=== PATIENT | female | born 1950 | race African-American/Black ===

== ENCOUNTER 2017-09-08 19:09 | Emergency (ER) | payer MEDICARE, MEDICAID ==
--- NOTE | 2017-09-08 19:30 | ER Document Report ---
ED General - General Chief Complaint: Other Stated Complaint: other Time Seen by Provider: 09/08/17 19:15 Mode of Arrival: Medic Information source: Patient, Relative Notes: 58-year-old female patient presents with complaints of fever via EMS. Patient was recently moved here from [facility] to live near her family. Patient's family member at bedside states that she has been unwell with weakness and fever for about 24 hours. Patient's family member states that patient has been excessively weak, has had very strong smelling urine and has had fevers as high as 102.5. Patient is alert and oriented x3 (to person, place and event) and denies any complaints. Patient's has hypertension, new onset diabetes for which she just started metformin as well as hypothyroidism. EMS reports temperature of 102.5 orally for which they gave 975 oral Tylenol. EMS also reports blood sugar of 238. TRAVEL OUTSIDE OF THE [place] IN LAST 30 DAYS: No - Related Data Allergies/Adverse Reactions: No Known Allergies Allergy (Unverified 09/08/17 20:07) Past Medical History - General Information source: Patient, Relative - Social History Smoking Status: Current Every Day Smoker Chew tobacco use (# tins/day): No Frequency of alcohol use: None Drug Abuse: None Family History: Reviewed & Not Pertinent Patient has suicidal ideation: No Patient has homicidal ideation: No - Past Medical History Cardiac Medical History: Reports: Hx Hypertension Endocrine Medical History: Reports: Hx Diabetes Mellitus Type 2, Hx Hypothyroidism Renal/ Medical History: Denies: Hx Peritoneal Dialysis Past Surgical History: Reports: Hx Section - Immunizations Immunizations up to date: Yes History of Influenza Vaccine for 01/2017 - 06/2017 Season: Unknown History of Pneumococcal Vaccine: Unknown Review of Systems - Review of Systems Constitutional: See HPI EENT: No symptoms reported Cardiovascular: See HPI Respiratory: No symptoms reported Gastrointestinal: No symptoms reported Genitourinary: No symptoms reported Female Genitourinary: No symptoms reported Musculoskeletal: No symptoms reported Skin: No symptoms reported Hematologic/Lymphatic: No symptoms reported Neurological/Psychological: No symptoms reported Physical Exam - Vital signs Vitals: Resp 31 H 09/08/17 19:43 - Notes Notes: PHYSICAL EXAMINATION: GENERAL: Well developed, well nourished, no acute distress. HEAD: Atraumatic, normocephalic. EYES: Pupils equal round and reactive to light, extraocular movements intact, conjunctiva are normal. ENT: Nares patent, oropharynx clear without exudates. Moist mucous membranes. NECK: Normal range of motion, supple without lymphadenopathy LUNGS: Bilateral breath sounds equal. Expiratory wheezes, no rales or rhonchi. HEART: Irregular rate and irregular rhythm without murmurs ABDOMEN: Soft, nontender, nondistended abdomen. No guarding, no rebound. No masses appreciated. Female : deferred Musculoskeletal: Normal range of motion, no pitting or edema. No cyanosis. NEUROLOGICAL: Cranial nerves grossly intact. Normal speech, normal gait. Normal sensory, motor exams PSYCH: Normal mood, normal affect. SKIN: Warm, Dry, normal turgor, no rashes or lesions noted. Course - Re-evaluation Re-evalutation: 66-year-old female patient with hypertension, hypothyroid and type 2 diabetes. Patient with 1 day of fever and weakness at home. Family also reports strong urine output. Patient denies any complaints at all during the interview. Initial examination reveals bilateral expiratory wheezing and no other acute findings on physical exam. Patient is alert and oriented to person place and event. Patient's neurological exam is normal. Patient is normotensive, without tachypnea or tachycardia. Will initiate septic workup as patient has had fevers at home as high as 102.5 with vague complaints of "weakness". Patient's initial EKG shows a sinus arrhythmia, rate of 91, normal axis, no ST segment elevations, QTC 488. Patient has leukocytosis with left shift, potassium 2.8, mag 1.2, lactic acid 3.1, troponin 0.247. Chest x-ray reveals large right upper lobe infiltrate. Will give patient IV fluids, will initiate antibiotic coverage for pneumonia and will start electrolyte replacement therapy. Nursing staff made me aware of an approximate 8 second run of ventricular tachycardia. Nursing staff was at the bedside at the time of this occurrence and patient denied any symptoms. Consulted emergency medicine attending physician, Dr. Au regarding patients status. Will monitor patient closely and continue with IV fluids as well as electrolyte replacement. Patient remains normotensive. Patient's lungs are clear at this time after duoneb, patient has normal work of breathing and is not in any distress. I did go to the bedside with another staff member to verify patient's CODE STATUS. Lengthy discussion had with patient and family it was ultimately decided by the patient that she would like to be a FULL CODE. 2340-Contacted [facility] and spoke with Dr. Edwards who is accepting the patient for admission. Patient will be placed on their waiting list for a bed, and I was notified that there may be a bed delay until the morning. Will also contact [facility]. Family updated on plan of care and status of transfer. 2345-Contacted [facility] for possible transfer. Awaiting callback. 2355-Nursing staff notified provider that patient is now with wheezing and rhonchi throughout. Went to bedside and patient found to be tachypneic, tachycardic and febrile. Will re-dose patient with Tylenol. Patient now vomited x1, will change tylenol to VT route. 0010-Patient currently receiving a breathing treatment. O2 saturation 95% with breathing treatment. Patient is still alert and responding. Will closely monitor patient for any acute changes. 0025-Call received from [facility]. Patient is now accepted to Dr. Harris. Awaiting bed placement. Family update on transfer status. 0035-Patient reevaluated and patient's respiratory status has not improved despite administration of 2 additional duonebs and 125mg Solu-Medrol. Patient does have coarse rhonchi throughout with mild rails. Will call respiratory therapy and have patient placed on BiPAP at this time. Patient remains normotensive, mildly tachycardic with heart rate of 105 however patient is currently febrile. Patient is still alert and responsive. 0048-patient resting comfortably on BiPAP at this time. Multiple family members remain at bedside. Transport should be here in less than 30 minutes. Patient's blood pressure normotensive, heart rate 96, pulse ox 100% and respiratory rate of 22 on BiPAP. 0135-friendly transport is at bedside for patient transport. Patient and family deny any questions. Patient remains normotensive, heart rate is currently 102. Patient does not have any signs of respiratory distress. Patient is stable for transport at this time. - Vital Signs Vital signs: Temp Pulse Resp BP Pulse Ox 101.2 F H 109 H 34 H 123/72 100 09/09/17 00:03 09/08/17 23:47 09/09/17 01:14 09/09/17 01:01 09/09/17 01:14 - Laboratory Result Diagrams: 09/08/17 19:58 09/08/17 19:58 Laboratory results interpreted by me: 09/08/17 09/08/17 09/08/17 19:33 19:38 19:58 WBC 12.6 H Hgb 10.8 L Hct 32.8 L MCH 26.3 L RDW 15.3 H Seg Neutrophils % 86.2 H Lymphocytes % 8.1 L Absolute Neutrophils 10.9 H VBG pH 7.48 H Potassium Est GFR ( Amer) Est GFR (Non-Af Amer) Glucose Lactic Acid Magnesium 1.2 L* Direct Bilirubin Creatine Kinase Albumin Urine Protein Urine Ketones Urine Blood Urine Urobilinogen Ur Leukocyte Esterase 09/08/17 09/08/17 09/08/17 19:58 19:58 19:58 WBC Hgb Hct MCH RDW Seg Neutrophils % Lymphocytes % Absolute Neutrophils VBG pH Potassium 2.8 L* Est GFR ( Amer) 55 L Est GFR (Non-Af Amer) 45 L Glucose 333 H Lactic Acid 3.1 H Magnesium Direct Bilirubin 0.7 H Creatine Kinase 141 H Albumin 3.3 L Urine Protein 30 H Urine Ketones TRACE H Urine Blood MODERATE H Urine Urobilinogen 4.0 H Ur Leukocyte Esterase SMALL H 09/08/17 23:49 WBC Hgb Hct MCH RDW Seg Neutrophils % Lymphocytes % Absolute Neutrophils VBG pH Potassium Est GFR ( Amer) Est GFR (Non-Af Amer) Glucose Lactic Acid 3.0 H Magnesium Direct Bilirubin Creatine Kinase Albumin Urine Protein Urine Ketones Urine Blood Urine Urobilinogen Ur Leukocyte Esterase Critical Care Note - Critical Care Note Total time excluding time spent on procedures (mins): 60 Comments: 60 minutes of critical care time spent in direct contact evaluating and reevaluating the patient, treating symptoms, reviewing labs and studies and speaking with family and consultants excluding any procedures
[2017-09-08] MEDS ORDERED: IPRATROPIUM/ALBUTEROL 0.5-2.5 MG/3 ML AMPUL NEB ONE ×2 (19:35→23:58)
--- NOTE | 2017-09-08 20:14 | RADIOLOGY REPORT (SQ) ---
EXAM DESCRIPTION: CHEST SINGLE VIEW COMPLETED DATE/TIME: 09/08/2017 8:05 pm REASON FOR STUDY: fever COMPARISON: None. EXAM PARAMETERS: NUMBER OF VIEWS: One view. TECHNIQUE: Single frontal radiographic view of the chest acquired. RADIATION DOSE: NA LIMITATIONS: None. FINDINGS: LUNGS AND PLEURA: Dense infiltrate in the right upper lobe. Left lung clear. No pleural effusion or pneumothorax. MEDIASTINUM AND HILAR STRUCTURES: No masses. Contour normal. HEART AND VASCULAR STRUCTURES: Heart upper limits of normal in size. Normal vasculature. BONES: No acute findings. HARDWARE: None in the chest. OTHER: No other significant finding. IMPRESSION: INFILTRATE IN THE RIGHT UPPER LOBE CONSISTENT WITH PNEUMONIA. TECHNICAL DOCUMENTATION: JOB ID: [id number] [employer]- All Rights Reserved Reading location - IP/workstation name: [email or web address]
[2017-09-08 20:15] LABS: ABSOLUTE MONOCYTES (AUTO) 0.7 10^3/uL (0.1-1.4); ABSOLUTE NEUT (AUTO) 10.9 10^3/uL (1.7-8.2); BASOPHILS % (AUTO) 0.3 % (0-2); HEMATOCRIT 32.8 % (36.0-47.0); HEMOGLOBIN 10.8 g/dL (12.0-15.5); LYMPHOCYTES % (AUTO) 8.1 % (13-45); MEAN CORPUSCULAR HEMOGLOBIN 26.3 pg (27.0-33.4); MEAN CORPUSCULAR HGB CONC 32.8 g/dL (32.0-36.0); MEAN CORPUSCULAR VOLUME 80 fl (80-97); MONOCYTES % (AUTO) 5.4 % (3-13); PLATELET COUNT 183 10^3/uL (150-450); RED BLOOD COUNT 4.11 10^6/uL (3.72-5.28); RED CELL DISTRIBUTION WIDTH 15.3 % (11.5-14.0); SEGMENTED NEUTROPHILS % (AUTO) 86.2 % (42-78); TOTAL CELLS COUNTED % (AUTO) 100 %; WHITE BLOOD COUNT 12.6 10^3/uL (4.0-10.5)
[2017-09-08 20:22] LABS: APPEARANCE,URINE SLIGHTLY-CLOUDY; BILIRUBIN,URINE NEGATIVE (NEGATIVE); COLOR,URINE AMBER; GLUCOSE, URINE NEGATIVE (NEGATIVE); KETONES,URINE TRACE mg/dL (NEGATIVE); LEUKOCYTE ESTERASE,URINE SMALL (NEGATIVE); NITRITE,URINE NEGATIVE (NEGATIVE); PROTEIN,URINE 30 mg/dL (NEGATIVE); URINE SPECIFIC GRAVITY 1.019
[2017-09-08] MEDS ORDERED: CEFTRIAXONE INJ 1000 MG VIAL IV ONE (20:30)
[2017-09-08] MEDS ORDERED: DOXYCYCLINE HYCLATE 100 MG TABLET PO ONE ×2 (20:31→21:21)
[2017-09-08 20:32] LABS: ALANINE AMINOTRANSFERASE 15 U/L (9-52); ALBUMIN 3.3 g/dL (3.5-5.0); ALKALINE PHOSPHATASE 72 U/L (38-126); ANION GAP 15 (5-19); ASPARTATE AMINO TRANSFERASE 27 U/L (14-36); BILIRUBIN,DIRECT 0.7 mg/dL (0.0-0.4); BILIRUBIN,TOTAL 0.9 mg/dL (0.2-1.3); BLOOD UREA NITROGEN 19 mg/dL (7-20); CALCIUM 8.5 mg/dL (8.4-10.2); CARBON DIOXIDE 25 mmol/L (22-30); CHLORIDE 98 mmol/L (98-107); CREATINE KINASE 141 U/L (30-135); GLUCOSE 333 mg/dL (75-110); SODIUM 138.3 mmol/L (137-145); TOTAL PROTEIN 7.4 g/dL (6.3-8.2)
[2017-09-08 20:35] LABS: POTASSIUM 2.8 mmol/L (3.6-5.0)
[2017-09-08] MEDS ORDERED: CEFEPIME 2 GM/D5W RTU 2 GM/50 ML RTUPB IV ONE (20:37)
[2017-09-08] MEDS ORDERED: NORMAL SALINE 1000 ML 1,000 ML IV ONE ×2 (20:40→21:27)
[2017-09-08 20:44] LABS: TROPONIN I 0.247 ng/mL
[2017-09-08 20:49] LABS: VENOUS BLOOD BASE EXCESS 2.2 mmol/L; VENOUS BLOOD HCO3 25.5 mmol/L (20-32); VENOUS BLOOD PCO2 35.1 mmHg (35-63); VENOUS BLOOD PH 7.48 (7.30-7.42)
[2017-09-08] MEDS: POTASSI CL 20 MEQ/50 ML RIDER 20 MEQ/50 ML RTUPB IV SCH ×2 (21:10→23:45)
[2017-09-08] MEDS: MAGNESIUM SULFATE/D5W 1 GM/100 ML RTUPB IV SCH ×2 (21:55→23:43)
--- NOTE | 2017-09-08 22:29 | EKG REPORT ---
SEVERITY:- ABNORMAL ECG - SINUS ARRHYTHMIA, AND APC PROBABLE LEFT ATRIAL ABNORMALITY ABNORMAL T, CONSIDER ISCHEMIA, LATERAL LEADS BORDERLINE PROLONGED QT INTERVAL : Confirmed by: Antonia Leggett 08-Sep-2017 22:27:27
[2017-09-08] MEDS ORDERED: METHYLPREDNISOLONE INJ 125 MG/2 ML SDV IV ONE (23:58)
[2017-09-08] MEDS ORDERED: ACETAMINOPHEN 325 MG TABLET PO ONE (23:59)
[2017-09-09] MEDS ORDERED: METOCLOPRAMIDE HCL INJ/PF 10 MG/2 ML SDV IV ONE (00:02)
[2017-09-09] MEDS ORDERED: ACETAMINOPHEN 650 MG SUPP.RECT PR ONE (00:03)
[2017-09-09 01:03] VITALS: BP 123/72
[2017-09-09] MEDS ORDERED: KETOROLAC TROMETHAMINE INJ/PF 30 MG/1 ML SDV IV ONE (01:36)
[2017-09-09] MEDS ORDERED: KETOROLAC TROMETHAMINE INJ/PF 30 MG/1 ML SDV ONE (01:38)
== END 2017-09-09 02:03 | disposition short-term general hospital (02) ==
LOC: ER 19:09
DX: R09.02 Hypoxemia (principal); E87.6 Hypokalemia; E83.42 Hypomagnesemia; A41.9 Sepsis, unspecified organism; D72.829 Elevated white blood cell count, unspecified; R50.9 Fever, unspecified; R53.1 Weakness; I10 Essential (primary) hypertension; E11.9 Type 2 diabetes mellitus without complications; Z79.84 Long term (current) use of oral hypoglycemic drugs; F17.200 Nicotine dependence, unspecified, uncomplicated; E11.65 Type 2 diabetes mellitus with hyperglycemia; E03.9 Hypothyroidism, unspecified; R06.2 Wheezing; R06.82 Tachypnea, not elsewhere classified; R00.0 Tachycardia, unspecified
CPT/HCPCS: 93005; 94640 ×2; 99285; 96375; 96365; 96366; 96367; 96368; 36415; 87040; 87086; 82553; 82550; 83690; 83735; 85025; 87088; 80053; 81001; 84484; 87186; 82803; 83605; 71045; 93010; 94660; A9270 ×4; J2930; J1885; J2765; J3475; J3480; J7030; J0692; J7620

== ENCOUNTER → 2019-07-22 | Outpatient (CLI) | payer MEDICARE, MEDICAID ==
--- NOTE | 2019-07-22 14:48 | RADIOLOGY REPORT (SQ) ---
EXAM DESCRIPTION: MRI RT LOWER EXTREMITY WITHOUT IMAGES COMPLETED DATE/TIME: 07/22/2019 2:21 pm REASON FOR STUDY: OSTEOMYELITIS OF RT FOOT M86.9 OSTEOMYELITIS, UNSPECIFIED COMPARISON: None. TECHNIQUE: Multiplanar imaging of the right foot to include fat and fluid sensitive sequences. LIMITATIONS: None. FINDINGS: BONE MARROW: There is increased T2 and STIR signal in the proximal phalanx of the 1st toe. Slightly decreased heterogenous signal on T1 images. The overlying cortex appears intact. No othe r significant findings in the bony structures of the forefoot. SOFT TISSUES: Diffuse soft tissue edema. OTHER: No other significant finding. IMPRESSION: 1. ABNORMAL SIGNAL IN THE PROXIMAL PHALANX OF THE 1ST TOE DESCRIBED. SOMEWHAT ATYPICAL APPEARANCE FOR OSTEOMYELITIS. AN X-RAY OF THE FOOT WAS NOT OBTAINED AND THEREFORE CANNOT DETERMINE IF THERE MA Y BE AN UNDERLYING BONE LESION. RECOMMEND CORRELATION WITH X-RAY OF THE FOOT. 2. DIFFUSE SOFT TISSUE EDEMA. NO EVIDENCE OF DISCRETE ABSCESS TECHNICAL DOCUMENTATION: JOB ID: [id number] 2010 [employer]- All Rights Reserved Reading location - IP/workstation name: [email or web address]
== END ==
LOC: RAD 13:10
PROVIDERS: ATTEND Physician Assistant
DX: M86.8X7 Other osteomyelitis, ankle and foot (principal)

== ENCOUNTER 2019-07-24 16:56 | Inpatient (IN) | payer MEDICARE, MEDICAID ==
[~2019-07-24 16:56] MED LIST: ETOMIDATE INJ/PF 20 MG/10 ML SDV IV ONE; LIDOCAINE 2% INJ-PF (20 MG/ML) 2 ML AMPUL ONE; METOCLOPRAMIDE HCL INJ/PF 10 MG/2 ML SDV ONE; ONDANSETRON HCL INJ/PF 4 MG/2 ML SDV ONE; ROCURONIUM BROMIDE INJ 50 MG/5 ML VIAL IV ONE
--- NOTE | 2019-07-24 18:10 | ER Document Report ---
ED Extremity Problem, Lower - General Mode of Arrival: Wheelchair Information source: Patient, Relative Cannot obtain history due to: Dementia TRAVEL OUTSIDE OF THE [place] IN LAST 30 DAYS: No - HPI Patient complains to provider of: Swelling. No: Pain Location: Foot, Leg Occurred: Other - 1 month Quality of pain: No pain Pain Level: 0 Context: denies: Recent surgery Recent injury: No Associated symptoms: denies: Chills, Dizzy, Fever, Unable to bear weight Exacerbated by: Nothing <MEMO PEARCE - Last Filed: 07/24/19 20:01> <KATHLEEN MENDOZA - Last Filed: 07/25/19 00:41> - General Chief Complaint: Feet Swelling Stated Complaint: RIGHT FOOT PAIN Time Seen by Provider: 07/24/19 17:32 Notes: Patient presents for evaluation of right foot and leg swelling. Patient had been seeing an orthopedic doctor who had an outpatient MRI performed 2 days ago. Patient's family was called today advising them to bring patient to the emergency room for further evaluation. Patient's daughter states that she has had swelling for the past month and actually the swelling is improved today. No fever. Patient without any known injury. Patient is a diabetic and takes m etformin although does not check her blood sugar. (MEMO PEARCE) - Related Data Allergies/Adverse Reactions: No Known Allergies Allergy (Verified 07/24/19 17:25) Past Medical History - General Information source: Patient - Social History Smoking Status: Current Every Day Smoker Frequency of alcohol use: None Drug Abuse: None Lives with: Family Family History: Reviewed & Not Pertinent Patient has suicidal ideation: No Patient has homicidal ideation: No - Past Medical History Cardiac Medical History: Reports: Hx Atrial Fibrillation, Hx Hypertension Neurological Medical History: Reports: Other - dementia Endocrine Medical History: Reports: Hx Diabetes Mellitus Type 2, Hx Hypoth yroidism Renal/ Medical History: Denies: Hx Peritoneal Dialysis Past Surgical History: Reports: Hx Section - Immunizations Immunizations up to date: Yes <MEMO PEARCE - Last Filed: 07/24/19 20:01> Review of Systems - Review of Systems Constitutional: Recent illness - Foot infection. denies: Fever EENT: No symptoms reported Cardiovascular: No symptoms reported Respiratory: No symptoms reported. denies: Cough, Short of breath Gastrointestinal: No symptoms reported. denies: Vomiting Genitourinary: No symptoms reported Female Genitourinary: No symptoms reported Musculoskeletal: Leg swelling. denies: Back pain, Joint pain Skin: Change in color - Blackened skin color to right foot Hematologic/Lymphatic: No symptoms reported Neurological/Psychological: Dementia <MEMO PEARCE - Last Filed: 07/24/19 20:01> Physical Exam - General General appearance: Appears well, Alert In distress: None - HEENT Head: Normocephalic, Atraumatic Eyes: Normal Conjunctiva: Normal Nasal: Normal Neck: Normal, Supple. No: Lymphadenopathy - Respiratory Respiratory status: No respiratory distress Chest status: Nontender Breath sounds: Normal Chest palpation: Normal - Cardiovascular Rhythm: Irregularly irregular Heart sounds: S1 appreciated, S2 appreciated Pulses: Absent: Dorsalis pedis - Bilateral feet - Abdominal Inspection: Normal Distension: No distension Bowel sounds: Normal Tenderness: Nontender - Back Back: Normal, Nontender - Extremities General upper extremity: Normal inspection, Normal ROM Foot: Other - Patient with what appears to be dry gangrene to toes of right fifth foot with swelling to right foot extending to the right lower leg, few scattered areas open and weeping to right great toe and between the right fourth and fifth toes. No: Tender - Neurological Neuro grossly intact: Yes Cognition: Confused - At times [place] Coma Scale Eye Opening: Spontaneous [place] Coma Scale Verbal: Confused - At times [place] Coma Scale Motor: Obeys Commands [place] Coma Scale Total: 14 - Psychological Associated symptoms: Normal affect, Normal mood - Skin Skin Temperature: Warm Skin Moisture: Dry Skin Color: Blackened - To toes of right foot and dorsum of the right foot Skin Turgor: Edematous - Right foot Skin irregularity: negative: Abscess, Rash Irregularity with: Weeping - Scattered areas weeping to right foot to right great toe, between right fourth and fifth toes. negative: Tenderness, Warmth, I nflammation <MEMO PEARCE - Last Filed: 07/24/19 20:01> - Vital signs Vitals: Temp Pulse Resp BP Pulse Ox 98.1 F 52 L 16 131/91 H 100 07/24/19 17:19 07/24/19 17:19 07/24/19 17:19 07/24/19 17:19 07/24/19 17:19 Course - Laboratory Result Diagrams: 07/24/19 18:11 07/24/19 18:11 - Diagnostic Test Radiology reviewed: Reports reviewed <MEMO PEARCE - Last Filed: 07/24/19 20:01> - Laboratory Result Diagrams: 07/24/19 18:11 07/24/19 18:11 <KATHLEEN MENDOZA - Last Filed: 07/25/19 00:41> - Re-evaluation Re-evalutation: 07/24/19 18:10 Dr. Sky to bedside for evaluation, agrees with diagnostic evaluation, recommends adding on tib-fib x-ray as well and consulting with surgeon once diagnostic results are back 07/24/19 19:41 Patient's Doppler reviewed, patient with blockages to the proximal femoral artery, mid femoral artery although does have a pulse to the distal femoral artery due to collateral circulation. Consulted with Dr. Carnes regarding patient presentation. Dr. Carnes recommends consulting with hospitalist for admission as patient is currently on Xarelto and that she will need to be off of this medication before he can perform the procedure. Spoke with the patient's daughter regarding her plan of care, patient and family agreeable with plan for admission here at this facility. 07/24/19 20:[address] Valenzuela for admission, Dr. Valenzuela concerned that patient had an arterial Doppler study performed. Dr. Valenzuela requesting Dr. Carnes to review patient's final Doppler report and to evaluate the patient. Dr. Valenzuela concerned that taking patient off her Xarelto may worsen her vascular issues. Report and handoff given to Kathleen mendoza TERRAZZO SUPERVISOR (MEMO PEARCE) 07/24/19 22:08 Patient's arterial Doppler studies are still not resulted. I called [facility] radiology. Jasmin, the traffic court referee states that it has not been read yet. She states that she will place it on high priority for official read. 07/24/19 22:46 I discussed the findings of the arterial study with Dr. Carnes. Dr. Carnes states that this is fine and the plan is to have an amputation. I subsequently called the patient's daughter, Rhona. She is in agreement to have the patient evaluated here and treated for an amputation. 07/24/19 22:[address] Valenzuela, the hospitalist. Patient will be admitted to the telemetry unit. (KATHLEEN MENDOZA) - Vital Signs Vital signs: Temp Pulse Resp BP Pulse Ox 98.4 F 97 18 118/69 95 07/24/19 20:02 07/24/19 20:02 07/25/19 00:01 07/25/19 00:01 07/24/19 22:01 - Laboratory Laboratory results interpreted by me: 07/24/19 07/24/19 18:11 18:11 WBC 13.8 H MCH 26.3 L RDW 16.9 H Lymph % (Auto) 12.3 L Absolute Neuts (auto) 11.3 H Seg Neutrophils % 82.0 H BUN 23 H Est GFR (MDRD) Non-Af 58 L Glucose 193 H Direct Bilirubin 0.5 H Total Protein 8.9 H Discharge <MEMO PEARCE - Last Filed: 07/24/19 20:01> - Discharge Admitting Provider: Nicolas (Hospitalist) Unit Admitted: Telemetry <KATHLEEN MENDOZA - Last Filed: 07/25/19 00:41> - Discharge Clinical Impression: Dry gangrene, Diabetic foot wound Condition: Stable Disposition: ADMITTED INPATIENT
[2019-07-24 18:28] LABS: ABSOLUTE EOSINOPHILS # (AUTO) 0.1 10^3/uL (0.0-0.6); ABSOLUTE LYMPHOCYTES (AUTO) 1.7 10^3/uL (0.5-4.7); ABSOLUTE MONOCYTES (AUTO) 0.7 10^3/uL (0.1-1.4); ABSOLUTE NEUT (AUTO) 11.3 10^3/uL (1.7-8.2); BASOPHILS % (AUTO) 0.3 % (0-2); EOSINOPHILS % (AUTO) 0.6 % (0-6); HEMATOCRIT 41.6 % (36.0-47.0); HEMOGLOBIN 13.6 g/dL (12.0-15.5); LYMPHOCYTES % (AUTO) 12.3 % (13-45); MEAN CORPUSCULAR HEMOGLOBIN 26.3 pg (27.0-33.4); MEAN CORPUSCULAR HGB CONC 32.6 g/dL (32.0-36.0); MEAN CORPUSCULAR VOLUME 81 fl (80-97); MONOCYTES % (AUTO) 4.8 % (3-13); PLATELET COUNT 336 10^3/uL (150-450); RED BLOOD COUNT 5.15 10^6/uL (3.72-5.28); RED CELL DISTRIBUTION WIDTH 16.9 % (11.5-14.0); TOTAL CELLS COUNTED % (AUTO) 100 %; WHITE BLOOD COUNT 13.8 10^3/uL (4.0-10.5)
--- NOTE | 2019-07-24 18:43 | RADIOLOGY REPORT (SQ) ---
EXAM DESCRIPTION: FOOT RIGHT COMPLETE IMAGES COMPLETED DATE/TIME: 07/24/2019 6:28 pm REASON FOR STUDY: r foot wound, discoloration COMPARISON: None. NUMBER OF VIEWS: Three views. TECHNIQUE: AP, lateral and oblique radiographic images acquired of the right foot. LIMITATIONS: None. FINDINGS: MINERALIZATION: Osteopenia. BONES: No acute fracture or dislocation. No worrisome bone lesions. JOINTS: Intact. SOFT TISSUES: Vascular calcifications. OTHER: No other significant finding. IMPRESSION: No evidence of osteomyelitis. TECHNICAL DOCUMENTATION: JOB ID: [id number] 2010 [employer]- All Rights Reserved Reading location - IP/workstation name: [email or web address]
--- NOTE | 2019-07-24 18:44 | RADIOLOGY REPORT (SQ) ---
EXAM DESCRIPTION: TIBIA FIBULA RIGHT IMAGES COMPLETED DATE/TIME: 07/24/2019 6:28 pm REASON FOR STUDY: RLE swelling, ?gas COMPARISON: None. NUMBER OF VIEWS: Two views. TECHNIQUE: Two radiographic images acquired of the right tibia and fibula to include the knee and an kle in at least one projection. LIMITATIONS: None. FINDINGS: MINERALIZATION: Osteopenia. BONES: No acute fracture or dislocation. No worrisome bone lesions. SOFT TISSUES: No gas or foreign body. OTHER: No other significant finding. IMPRESSION: No evidence of osteomyelitis. TECHNICAL DOCUMENTATION: JOB ID: [id number] [employer]- All Rights Reserved Reading location - IP/workstation name: [email or web address]
[2019-07-24 18:49] LABS: ALBUMIN 3.8 g/dL (3.5-5.0); ALKALINE PHOSPHATASE 109 U/L (38-126); ANION GAP 9 (5-19); ASPARTATE AMINO TRANSFERASE 23 U/L (14-36); BILIRUBIN,DIRECT 0.5 mg/dL (0.0-0.4); BILIRUBIN,TOTAL 0.5 mg/dL (0.2-1.3); BLOOD UREA NITROGEN 23 mg/dL (7-20); CALCIUM 9.2 mg/dL (8.4-10.2); CARBON DIOXIDE 30 mmol/L (22-30); CHLORIDE 100 mmol/L (98-107); GLUCOSE 193 mg/dL (75-110); TOTAL PROTEIN 8.9 g/dL (6.3-8.2)
[2019-07-24] MEDS ORDERED: PIPERACILLIN/TAZOBACTAM 3.375 GM VIAL IV ONE (19:49)
[2019-07-24] MEDS ORDERED: NORMAL SALINE 1000 ML 1,000 ML IV ONE (19:56)
--- NOTE | 2019-07-24 22:20 | RADIOLOGY REPORT (SQ) ---
EXAM DESCRIPTION: RadLex: US LOWER EXTREMITY ARTERIES LIMITED/UNILATERAL/FOLLOW UP CLINICAL HISTORY: 68 years Female, cool, dark colored foot TECHNIQUE: Ultrasound of the arteries of the leg performed with grayscale, pulsed Doppler, and color Doppler. COMPARISON: None FINDINGS: Right leg (velocities in cm/s): [employer] SPECIAL AGENT: Biphasic, PSV 40 DFA: Triphasic SFA-proximal: Occluded SFA-mid: Occluded SFA-distal: Monophasic, PSV 20 Popliteal: Monophasic, PSV 60. Likely occluded distally [employer] SPECIAL AGENT: Monophasic, mid and distal occlusion LM: Monophasic, PSV 20 Peroneal: Proximal occlusion DPA: Monophasic, PSV 10 IMPRESSION: 1. Peripheral arterial disease 2. Occluded right superficial femoral artery, distal popliteal artery, peroneal artery, and mid posterior tibial artery. Collaterals are identified. 3. Markedly diminished flow in the right anterior tibial and dorsalis pedis arteries
[2019-07-24] MEDS ORDERED: IPRATROPIUM/ALBUTEROL 0.5-2.5 MG/3 ML AMPUL NEB PRN (22:55)
[2019-07-24] MEDS ORDERED: DEXTROSE 50%-WATER 25 GM/50 ML DISP.SYRIN IV PRN ×2 (22:55)
[2019-07-24] MEDS ORDERED: DEXTROSE 40% GEL 15 GM TUBE PO PRN ×2 (22:55)
[2019-07-24] MEDS ORDERED: MAG HYDROX/AL HYDROX/SIMETH SUSP 30 ML UDCUP PO PRN (22:55)
[2019-07-24] MEDS ORDERED: GLUCAGON,HUMAN RECOMB 1 MG INJ IM PRN (22:55)
[2019-07-24] MEDS ORDERED: VANCOMYCIN HCL 1,000 MG in DEXTROSE 5%-WATER 250 ML IV ONE (22:55)
[2019-07-24] MEDS ORDERED: MAGNESIUM HYDROXIDE SUSP 30 ML UDCUP PO PRN (22:55)
[2019-07-24] MEDS ORDERED: VANCOMYCIN HCL 0 MG in DEXTROSE 5%-WATER 250 ML IV NR (23:00)
[2019-07-24] MEDS ORDERED: PIPERACILLIN/TAZOBACTAM 3.375 GM VIAL IV PRN (23:10)
[2019-07-24] MEDS ORDERED: METOPROLOL TARTRATE 25 MG TABLET PO ONE (23:15)
[2019-07-24] MEDS ORDERED: VANCOMYCIN HCL INJ 1000 MG VIAL ONE (23:45)
[2019-07-25] MEDS ORDERED: PIPERACILLIN/TAZOBACTAM 3.375 GM VIAL IV ONE (01:27)
[2019-07-25] MEDS: NORMAL SALINE 1000 ML 1,000 ML IV PRN ×2 (01:42→11:59)
[2019-07-25] MEDS: PIPERACILLIN SODIUM/TAZOBACTAM 3.375 GM in NORMAL SALINE 100 ML IV SCH ×4 (02:02→21:17)
--- NOTE | 2019-07-25 03:27 | PDOC H&P ---
History of Present Illness Admission Date/PCP: 07/24/19 23:12 WILLIAMS CHAUHAN PA-C Patient complains of: Right foot pain and swelling History of Present Illness: KRISTIN DARLING is a 68 year old female with a past medical history of atrial fibrillation on Xarelto, diabetes, peripheral vascular disease, tobacco abuse and dementia. She presents with worsening of chronic right foot ulcer complicated by the above prompting evaluation by orthopedic surgery 2 days ago with MRI revealing likely osteomyelitis. She is referred to the emergency department for evaluation. In the emergency department she is found to have leukocytosis and arterial vascular imaging revealing extensive disease. She is recommended for amputation and referred to the hospitalist for admission. She has an exceptionaly high risk for thromboembolism and will require discontinuation of Xarelto 48 to 72 hours prior to procedure with heparin bridging. Xarelto at former dose may be reintroduced 24 to 48 hours after depending on procedural hemostasis. The case has been discussed with patient's daughter and decision maker who agrees to preliminary plan. Pending surgical consultation. Past Medical History Cardiac Medical History: Reports: Atrial Fibrillation, Hypertension Neurological Medical History: Reports: Other - dementia Endocrine Medical History: Reports: Diabetes Mellitus Type 2, Hypothyroidism Psychiatric Medical History: Reports: Dementia Past Surgical History Past Surgical History: Reports: Section Social History Information Source: Emergency Med Personnel, [facility] Records Lives with: Family Smoking Status: Current Every Day Smoker Drugs: None - Advance Directive Resuscitation Status: Full Code Family History Family History: Other - Unobtainable Parental Family History Reviewed: No - Unobtainable Children Family History Reviewed: No - Unobtainable Sibling(s) Family History Reviewed.: No - Unobtainable Medication/Allergy Home Medications: Furosemide [Lasix 20 mg Tablet] 20 mg PO BID #60 tablet 12/19/17 Lisinopril 5 mg PO DAILY #30 tablet 12/19/17 Magnesium Oxide [Mag-Ox 400 mg Tablet] 400 mg PO DAILY #30 tablet 12/19/17 Metoprolol Succinate 25 mg PO DAILY #30 tab.er.24h 12/19/17 Potassium Chloride [Klor-Con 10] 10 meq PO BID #60 tablet.er 12/19/17 Allergies/Adverse Reactions: No Known Allergies Allergy (Verified 07/24/19 17:25) Review of Systems ROS unobtainable: Due to mental status - Denies complaints with exception to right foot. Physical Exam Vital Signs: Temp Pulse Resp BP Pulse Ox 98.8 F 84 16 140/79 H 100 07/25/19 01:10 07/25/19 01:49 07/25/19 01:10 07/25/19 01:10 07/25/19 01:10 Intake & Output 07/23/19 07/24/19 07/25/19 11:59 11:59 11:59 Intake Total 1250 Output Total 200 Balance 1050 Weight 51.3 kg General appearance: PRESENT: no acute distress, well-developed, well-nourished Head exam: PRESENT: atraumatic, normocephalic Eye exam: PRESENT: conjunctiva pink, EOMI, PERRLA. ABSENT: scleral icterus Ear exam: PRESENT: normal external ear exam Mouth exam: PRESENT: moist, tongue midline Neck exam: ABSENT: carotid bruit, JVD, lymphadenopathy, thyromegaly Respiratory exam: PRESENT: clear to auscultation miguelito. ABSENT: rales, rhonchi, wheezes Cardiovascular exam: PRESENT: RRR. ABSENT: diastolic murmur, rubs, systolic murmur Pulses: PRESENT: normal dorsalis pedis pul Vascular exam: PRESENT: normal capillary refill GI/Abdominal exam: PRESENT: normal bowel sounds, soft. ABSENT: distended, guarding, mass, organolmegaly, rebound, tenderness Rectal exam: PRESENT: deferred Extremities exam: PRESENT: full ROM, pedal edema - Right foot with multiple digits cold with extensive swelling extending to the lower leg with associated serosanguineous weeping., tenderness, +1 edema. ABSENT: calf tenderness, clubbing Neurological exam: PRESENT: alert, awake, oriented to person, CN II-XII grossly intact. ABSENT: motor sensory deficit Psychiatric exam: PRESENT: appropriate affect, normal mood. ABSENT: homicidal ideation, suicidal ideation Skin exam: PRESENT: dry, intact, warm. ABSENT: cyanosis, rash Results Laboratory Results: 07/24/19 18:11 07/24/19 18:11 07/24/19 07/24/19 18:11 18:11 WBC 13.8 H RBC 5.15 Hgb 13.6 Hct 41.6 MCV 81 MCH 26.3 L MCHC 32.6 RDW 16.9 H Plt Count 336 Seg Neutrophils % 82.0 H Sodium 139.3 Potassium 4.0 Chloride 100 Carbon Dioxide 30 Anion Gap 9 BUN 23 H Creatinine 0.95 Est GFR ( Amer) > 60 Glucose 193 H Calcium 9.2 Total Bilirubin 0.5 AST 23 Alkaline Phosphatase 109 Total Protein 8.9 H Albumin 3.8 Impressions: Extremity Arterial Study 07/24/19 17:43 IMPRESSION: 1. Peripheral arterial disease 2. Occluded right superficial femoral artery, distal popliteal artery, peroneal artery, and mid posterior tibial artery. Collaterals are identified. 3. Markedly diminished flow in the right anterior tibial and dorsalis pedis arteries Foot X-Ray 07/24/19 17:43 IMPRESSION: No evidence of osteomyelitis. Tibia/Fibula X-Ray 07/24/19 18:04 IMPRESSION: No evidence of osteomyelitis. Assessment and Plan - Diagnosis (1) Atrial fibrillation Is this a current diagnosis for this admission?: Yes Plan: Rate controlled, discontinuation of Xarelto 48 to 72 hours prior to procedure with heparin bridging. Xarelto at former dose may be reintroduced 24 to 48 hours after depending on procedural hemostasis. (2) Diabetes Is this a current diagnosis for this admission?: Yes Plan: Hold metformin, Lantus 5 units nightly, Humalog sliding scale as needed (3) Dementia Is this a current diagnosis for this admission?: Yes Plan: Likely vascular complicated by dementia continue bridging anticoagulation, supportive care (4) Dry gangrene Is this a current diagnosis for this admission?: Yes Plan: No immediate reversible cardiopulmonary risk factors present with exception to tobacco, incentive spirometry ordered. Empiric antibiotics initiated, follow-up blood culture, CBC and surgical consult. - Time Time Spent with patient: 25-34 minutes - Inpatient Certification Medical Necessity: Need Close Monitoring Due to Risk of Patient Decompensation
[2019-07-25] MEDS: HEPARIN SODIUM,PORCINE/D5W 25,000 UNIT/250 ML RTUINJ IV PRN (04:13)
[2019-07-25] MEDS ORDERED: HEPARIN SOD (PORCINE) 5,000 UNIT/ML 1 ML VIAL SUBCUT SCH (06:00)
[2019-07-25 06:16] LABS: ABSOLUTE BASOPHILS # (AUTO) 0.1 10^3/uL (0.0-0.2); ABSOLUTE EOSINOPHILS # (AUTO) 0.1 10^3/uL (0.0-0.6); ABSOLUTE LYMPHOCYTES (AUTO) 1.2 10^3/uL (0.5-4.7); ABSOLUTE MONOCYTES (AUTO) 0.8 10^3/uL (0.1-1.4); ABSOLUTE NEUT (AUTO) 13.2 10^3/uL (1.7-8.2); BASOPHILS % (AUTO) 0.8 % (0-2); EOSINOPHILS % (AUTO) 0.5 % (0-6); HEMATOCRIT 31.9 % (36.0-47.0); LYMPHOCYTES % (AUTO) 7.7 % (13-45); MEAN CORPUSCULAR HEMOGLOBIN 25.8 pg (27.0-33.4); MEAN CORPUSCULAR HGB CONC 32.5 g/dL (32.0-36.0); MEAN CORPUSCULAR VOLUME 79 fl (80-97); MONOCYTES % (AUTO) 5.1 % (3-13); PLATELET COUNT 267 10^3/uL (150-450); RED BLOOD COUNT 4.03 10^6/uL (3.72-5.28); RED CELL DISTRIBUTION WIDTH 16.9 % (11.5-14.0); SEGMENTED NEUTROPHILS % (AUTO) 85.9 % (42-78); TOTAL CELLS COUNTED % (AUTO) 100 %; WHITE BLOOD COUNT 15.4 10^3/uL (4.0-10.5)
[2019-07-25 06:18] LABS: INTERNATIONAL RATION (INR) 2.84; PROTHROMBIN TIME 30.4 SEC (11.4-15.4)
[2019-07-25 06:22] LABS: HEMOGLOBIN 10.4 g/dL (12.0-15.5)
[2019-07-25 06:32] LABS: ANION GAP 7 (5-19); BLOOD UREA NITROGEN 18 mg/dL (7-20); CALCIUM 8.5 mg/dL (8.4-10.2); CARBON DIOXIDE 24 mmol/L (22-30); CHLORIDE 105 mmol/L (98-107); GLUCOSE 135 mg/dL (75-110); POTASSIUM 3.9 mmol/L (3.6-5.0)
--- NOTE | 2019-07-25 06:58 | PDOC CONSULTATION ---
Consultation Consult Date: 07/25/19 Provider Consulted: SURGICAL SURGICALIST Consult reason:: Gangrene of the right foot History of Present Illness Admission Date/PCP: 07/24/19 23:12 WILLIAMS CHAUHAN PA-C History of Present Illness: KRISTIN DARLING is a 68 year old female seen in consultation at the request of the hospitalist service. The patient presents to the ER with worsening discoloration and gangrene of the right foot. She reports tenderness to palpation, and difficulty with movement. She has a long history of peripheral vascular disease. She is a diabetic. She denies chest pain, shortness of breath, headache, nausea, vomiting, fevers, chills, dizziness, orthostasis. She does report malaise. Her pain does not radiate. She rates it as 5 out of 10. She takes blood thinners at home for atrial fibrillation. Past Medical History Cardiac Medical History: Reports: Atrial Fibrillation, Hypertension Neurological Medical History: Reports: Other - dementia Endocrine Medical History: Reports: Diabetes Mellitus Type 2, Hypothyroidism Psychiatric Medical History: Reports: Dementia Past Surgical History Past Surgical History: Reports: Section Social History Lives with: Family Smoking Status: Current Every Day Smoker Drugs: None - Advance Directive Resuscitation Status: Full Code Family History Family History: Other - Unobtainable Parental Family History Reviewed: Yes Children Family History Reviewed: Yes Sibling(s) Family History Reviewed.: Yes Medication/Allergy Home Medications: Furosemide [Lasix 20 mg Tablet] 20 mg PO BID #60 tablet 12/19/17 Lisinopril 5 mg PO DAILY #30 tablet 12/19/17 Magnesium Oxide [Mag-Ox 400 mg Tablet] 400 mg PO DAILY #30 tablet 12/19/17 Metoprolol Succinate 25 mg PO DAILY #30 tab.er.24h 12/19/17 Potassium Chloride [Klor-Con 10] 10 meq PO BID #60 tablet.er 12/19/17 Allergies/Adverse Reactions: No Known Allergies Allergy (Verified 07/24/19 17:25) Review of Systems Constitutional: ABSENT: anorexia, chills, fatigue, fever(s), headache(s) Eyes: ABSENT: visual disturbances Ears: ABSENT: hearing changes Nose, Mouth, and Throat: ABSENT: sore throat Cardiovascular: ABSENT: chest pain Respiratory: ABSENT: cough Gastrointestinal: ABSENT: abdominal pain, hematemesis, hematochezia, melena, nausea, vomiting Genitourinary: ABSENT: dysuria Musculoskeletal: PRESENT: other - Pain in the right foot. ABSENT: back pain Integumentary: PRESENT: erythema, other - Dark/black discoloration of the toes and forefoot on the right. Neurological: ABSENT: confusion, convulsions, dizziness Psychiatric: ABSENT: anxiety, depression Endocrine: ABSENT: cold intolerance, heat intolerance Hematologic/Lymphatic: PRESENT: easy bleeding Physical Exam Vital Signs: Temp Pulse Resp BP Pulse Ox 98.8 F 80 16 140/79 H 100 07/25/19 01:10 07/25/19 02:00 07/25/19 01:10 07/25/19 01:10 07/25/19 01:10 Intake & Output 07/23/19 07/24/19 07/25/19 06:59 06:59 06:59 Intake Total 1350 Output Total 200 Balance 1150 Weight 51.3 kg General appearance: PRESENT: no acute distress, cooperative Head exam: PRESENT: atraumatic, normocephalic Eye exam: PRESENT: EOMI, PERRLA. ABSENT: scleral icterus Mouth exam: PRESENT: neck supple Neck exam: ABSENT: meningismus, tenderness, thyromegaly, tracheal deviation Respiratory exam: PRESENT: unlabored. ABSENT: chest wall tenderness, tachypnea, wheezes Cardiovascular exam: ABSENT: tachycardia Pulses: PRESENT: other - No palpable pulses in bilateral feet. Vascular exam: PRESENT: other - Gangrenous appearing right toes, with no appreciable motor function GI/Abdominal exam: PRESENT: soft. ABSENT: distended, rigid, tenderness Rectal exam: PRESENT: deferred Extremities exam: PRESENT: other - Ongoing necrosis/gangrene of all of the toes of the right foot, extending into the midfoot. Neurological exam: PRESENT: alert, awake Psychiatric exam: ABSENT: agitated, anxious, depressed Focused psych exam: ABSENT: delusional Skin exam: ABSENT: jaundice Results Laboratory Results: 07/25/19 05:40 07/25/19 05:40 07/24/19 07/24/19 07/25/19 18:11 18:11 05:40 WBC 13.8 H 15.4 H RBC 5.15 4.03 Hgb 13.6 10.4 L D Hct 41.6 31.9 L MCV 81 79 L MCH 26.3 L 25.8 L MCHC 32.6 32.5 RDW 16.9 H 16.9 H Plt Count 336 267 Seg Neutrophils % 82.0 H 85.9 H Sodium 139.3 Potassium 4.0 Chloride 100 Carbon Dioxide 30 Anion Gap 9 BUN 23 H Creatinine 0.95 Est GFR ( Amer) > 60 Glucose 193 H Calcium 9.2 Total Bilirubin 0.5 AST 23 Alkaline Phosphatase 109 Total Protein 8.9 H Albumin 3.8 07/25/19 05:40 WBC RBC Hgb Hct MCV MCH MCHC RDW Plt Count Seg Neutrophils % Sodium 135.9 L Potassium 3.9 Chloride 105 Carbon Dioxide 24 Anion Gap 7 BUN 18 Creatinine 0.81 Est GFR ( Amer) > 60 Glucose 135 H Calcium 8.5 Total Bilirubin AST Alkaline Phosphatase Total Protein Albumin Impressions: Extremity Arterial Study 07/24/19 17:43 IMPRESSION: 1. Peripheral arterial disease 2. Occluded right superficial femoral artery, distal popliteal artery, peroneal artery, and mid posterior tibial artery. Collaterals are identified. 3. Markedly diminished flow in the right anterior tibial and dorsalis pedis arteries Foot X-Ray 07/24/19 17:43 IMPRESSION: No evidence of osteomyelitis. Tibia/Fibula X-Ray 07/24/19 18:04 IMPRESSION: No evidence of osteomyelitis. Assessment & Plan - Diagnosis (1) Type 2 diabetes mellitus with right diabetic foot infection Is this a current diagnosis for this admission?: Yes (2) Gangrene of right foot Is this a current diagnosis for this admission?: Yes - Plan Summary Plan Summary: This is a 68-year-old female diabetic. She has severe peripheral vascular disease, and diabetic foot infection of the right foot. There is ongoing gangrene/necrosis of the toes of the right foot, extending into the midfoot. This finding, coupled with her very poor circulation, will likely necessitate a below-knee amputation. I have discussed this with the patient, however she is hesitant to agree to surgery. The patient has dementia by history. I will touch base with her family, to further discuss the situation. I do not believe the patient would benefit from toe or midfoot amputation, as the wound would not heal with her current level of circulation. Continue antibiotics for now. Hold blood thinners (last reported dose was yesterday). Plan for surgery in approximately 48 hours, once oral anticoagulants have been metabolized.
[2019-07-25] MEDS: INSULIN LISPRO 100 UNIT/ML 3 ML VIAL SUBCUT SCH ×3 (07:38→16:37)
[2019-07-25] MEDS: DOCUSATE SODIUM 100 MG/10 ML UDC PO SCH ×2 (09:15→17:22)
[2019-07-25] MEDS: ACETAMINOPHEN 325 MG TABLET PO PRN (09:17)
[2019-07-25] MEDS: HEPARIN SOD (PORCINE) 1,000 UNIT/ML 10 ML VIAL IV PRN (09:40)
[2019-07-25] MEDS ORDERED: METOPROLOL TARTRATE 25 MG TABLET PO SCH (10:00)
--- NOTE | 2019-07-25 11:56 | PDOC PROGRESS REPORT ---
Subjective Progress Note for:: 07/25/19 Subjective:: Patient with dementia. Had discussion with patient about her medical condition and current state that would require surgery both patient does not seem to fully get her grasp on the explanation and understand the consequences. Will discuss with family today. Currently patient does not have any complaints. Reason For Visit: DM FOOT,AFIB,PVD Physical Exam Vital Signs: Temp Pulse Resp BP Pulse Ox 99.0 F 83 14 104/86 H 100 07/25/19 08:00 07/25/19 09:27 07/25/19 09:27 07/25/19 08:00 07/25/19 09:27 Intake & Output 07/24/19 07/25/19 07/26/19 06:59 06:59 06:59 Intake Total 1350 Output Total 200 Balance 1150 Weight 51.3 kg General appearance: PRESENT: no acute distress, cooperative Neck exam: ABSENT: JVD Respiratory exam: PRESENT: clear to auscultation miguelito, unlabored. ABSENT: tachypnea, wheezes Cardiovascular exam: PRESENT: RRR, +S1, +S2. ABSENT: tachycardia GI/Abdominal exam: PRESENT: normal bowel sounds, soft. ABSENT: rebound, rigid, tenderness Neurological exam: PRESENT: alert, awake, oriented to person, other - Able to respond to questions. ABSENT: oriented to place, oriented to time, oriented to situation Results Laboratory Results: 07/25/19 05:40 07/25/19 05:40 07/24/19 07/24/19 07/25/19 18:11 18:11 05:40 WBC 13.8 H 15.4 H RBC 5.15 4.03 Hgb 13.6 10.4 L D Hct 41.6 31.9 L MCV 81 79 L MCH 26.3 L 25.8 L MCHC 32.6 32.5 RDW 16.9 H 16.9 H Plt Count 336 267 Seg Neutrophils % 82.0 H 85.9 H Sodium 139.3 Potassium 4.0 Chloride 100 Carbon Dioxide 30 Anion Gap 9 BUN 23 H Creatinine 0.95 Est GFR ( Amer) > 60 Glucose 193 H Calcium 9.2 Total Bilirubin 0.5 AST 23 Alkaline Phosphatase 109 Total Protein 8.9 H Albumin 3.8 07/25/19 05:40 WBC RBC Hgb Hct MCV MCH MCHC RDW Plt Count Seg Neutrophils % Sodium 135.9 L Potassium 3.9 Chloride 105 Carbon Dioxide 24 Anion Gap 7 BUN 18 Creatinine 0.81 Est GFR ( Amer) > 60 Glucose 135 H Calcium 8.5 Total Bilirubin AST Alkaline Phosphatase Total Protein Albumin Impressions: Extremity Arterial Study 07/24/19 17:43 IMPRESSION: 1. Peripheral arterial disease 2. Occluded right superficial femoral artery, distal popliteal artery, peroneal artery, and mid posterior tibial artery. Collaterals are identified. 3. Markedly diminished flow in the right anterior tibial and dorsalis pedis arteries Foot X-Ray 07/24/19 17:43 IMPRESSION: No evidence of osteomyelitis. Tibia/Fibula X-Ray 07/24/19 18:04 IMPRESSION: No evidence of osteomyelitis. Assessment and Plan - Diagnosis (1) Gangrene of right foot Is this a current diagnosis for this admission?: Yes Plan: Planned for surgical amputation but surgical list will need to discuss with patient's family first regarding consent as patient does have underlying dementia. In the meantime, we will continue with antibiotics IV. Pre-op risk assessment: history of CHF, A. fib which currently appear stable and diabetic. Patient's daughter denies any history of patient having coronary artery disease. However patient does have significant peripheral vascular disease making it very likely that she does have some underlying CAD. I will need to check an EKG and an echocardiogram prior to surgery. (2) Chronic atrial fibrillation, unspecified Is this a current diagnosis for this admission?: Yes Plan: Continue Toprol-XL. Holding Xarelto. Continue heparin in anticipation of potential surgery. (3) Dementia Qualifiers: Dementia type: unspecified type Dementia behavioral disturbance: without behavioral disturbance Qualified Code(s): F03.90 - Unspecified dementia without behavioral disturbance Is this a current diagnosis for this admission?: Yes Plan: Patient certainly has dementia. Uncertain if Alzheimer's versus vascular. Patient's daughter denies history of strokes to her knowledge. Supportive care and redirection as needed. (4) Diabetes Is this a current diagnosis for this admission?: Yes Plan: Hold metformin. Currently on Lantus and sliding scale insulin. (5) Peripheral vascular disease in diabetes mellitus Is this a current diagnosis for this admission?: Yes Plan: Severe peripheral vascular disease noted in her right lower extremity. Will start on aspirin following surgery. Notably not on a statin. Check lipid panel. - Time Time Spent with patient: 15-24 minutes
[2019-07-25] MEDS: VANCOMYCIN HCL 1,000 MG in DEXTROSE 5%-WATER 250 ML IV SCH (16:36)
[2019-07-25] MEDS: INSULIN GLARGINE,HUM.REC.ANLOG 1,000 UNIT/10 ML VIAL SUBCUT SCH (21:17)
--- NOTE | 2019-07-25 22:30 | EKG REPORT ---
SEVERITY:- ABNORMAL ECG - SINUS RHYTHM BORDERLINE LEFT AXIS DEVIATION NONSPECIFIC T ABNORMALITIES, LATERAL LEADS : Confirmed by: Joanna Honeycutt MD 25-Jul-2019 22:29:26
[2019-07-26] MEDS: PIPERACILLIN SODIUM/TAZOBACTAM 3.375 GM in NORMAL SALINE 100 ML IV SCH ×4 (03:34→21:50)
[2019-07-26] MEDS: LEVOTHYROXINE SODIUM 0.025 MG TABLET PO SCH (05:56)
[2019-07-26 06:33] LABS: HEMATOCRIT 31.6 % (36.0-47.0); HEMOGLOBIN 10.2 g/dL (12.0-15.5); MEAN CORPUSCULAR HEMOGLOBIN 26.1 pg (27.0-33.4); MEAN CORPUSCULAR HGB CONC 32.4 g/dL (32.0-36.0); MEAN CORPUSCULAR VOLUME 81 fl (80-97); PLATELET COUNT 240 10^3/uL (150-450); RED BLOOD COUNT 3.92 10^6/uL (3.72-5.28); RED CELL DISTRIBUTION WIDTH 16.7 % (11.5-14.0); WHITE BLOOD COUNT 10.3 10^3/uL (4.0-10.5)
[2019-07-26 06:41] LABS: APPEARANCE,URINE CLEAR; BILIRUBIN,URINE NEGATIVE (NEGATIVE); COLOR,URINE YELLOW; GLUCOSE, URINE NEGATIVE (NEGATIVE); KETONES,URINE NEGATIVE (NEGATIVE); LEUKOCYTE ESTERASE,URINE NEGATIVE (NEGATIVE); NITRITE,URINE NEGATIVE (NEGATIVE); PROTEIN,URINE NEGATIVE (NEGATIVE)
[2019-07-26] MEDS: HEPARIN SOD (PORCINE) 1,000 UNIT/ML 10 ML VIAL IV PRN (06:51)
[2019-07-26 07:06] LABS: ANION GAP 7 (5-19); BLOOD UREA NITROGEN 15 mg/dL (7-20); CALCIUM 7.9 mg/dL (8.4-10.2); CARBON DIOXIDE 23 mmol/L (22-30); CHLORIDE 108 mmol/L (98-107); GLUCOSE 90 mg/dL (75-110); POTASSIUM 3.7 mmol/L (3.6-5.0); TRIGLYCERIDES 44 mg/dL (<150)
[2019-07-26 07:16] LABS: DIRECT LDL 34 mg/dL (<100)
[2019-07-26] MEDS: INSULIN LISPRO 100 UNIT/ML 3 ML VIAL SUBCUT SCH ×3 (07:59→16:24)
[2019-07-26] MEDS ORDERED: MAGNESIUM SULFATE/D5W 1 GM/100 ML RTUPB IV ONE ×3 (09:30→11:00)
[2019-07-26] MEDS ORDERED: POTASSIUM CHLORIDE 10 MEQ TABLET.ER PO SCH (10:00)
[2019-07-26] MEDS ORDERED: METOPROLOL SUCCINATE 25 MG TAB.SR.24H PO SCH (10:00)
[2019-07-26] MEDS ORDERED: LISINOPRIL 5 MG TABLET PO SCH (10:00)
[2019-07-26] MEDS ORDERED: POTASSIUM CHLORIDE 10 MEQ TABLET.ER PO ONE (10:30)
[2019-07-26] MEDS: MAGNESIUM OXIDE 400 MG TABLET PO SCH (10:41)
[2019-07-26] MEDS: DOCUSATE SODIUM 100 MG CAPSULE PO SCH ×2 (10:42→17:37)
--- NOTE | 2019-07-26 10:48 | XCELERA REPORT ---
[address] [address] Transthoracic Echocardiogram Report Name: KRISTIN DARLING Age: 68 yrs Gender: Female : 1950 Patient Status: Inpatient Patient Location: [address] [place], [place] [address] Study Date: 07/26/2019 08:54 AM History: CHF Atrial fibrillation Height: 62 in Weight: 119 lb BSA: 1.5 m2 Procedure: A complete two-dimensional transthoracic echocardiogram was performed (2D, M-mode, spectral and color flow Doppler). The study was technically adequate with some images being suboptimal in quality. Reason For Study: preop assess. ho PVD, CHF. RVSP assessment. Ru History: CHF. Diabetes. HTN. PVD. Patient unable to provide clinical history. Ordering Physician: JENNIFER OLMSTEAD Performed By: Nima Berry Interpretation Summary Left ventricular systolic function is moderate to severely reduced. The Ejection Fraction estimate is 20-25% The right ventricular systolic function is moderate to severely reduced. There is a moderate amount of mitral regurgitation There is a moderate amount of tricuspid regurgitation There is servere pulmonary hypertension by echo There is no pericardial effusion. MMode/2D Measurements & Calculations RVDd: 2.6 cm LVIDd: 4.9 cm FS: 8.6 % Ao root diam: 2.8 cm IVSd: 1.0 cm LVIDs: 4.5 cm EDV(Teich): LVPWd: 1.3 cm 115.3 ml Ao root area: ESV(Teich): 6.2 cm2 93.5 ml LA dimension: EF(Teich): 19.0 % 3.9 cm LVLd ap4: 8.0 cm SV(MOD-sp4): EDV(MOD-sp4): 29.0 ml 109.0 ml LVLs ap4: 7.6 cm ESV(MOD-sp4): 80.0 ml EF(MOD-sp4): 26.6 % Doppler Measurements & Calculations MV E max christophe: MV P1/2t max christophe: Ao V2 max: LV V1 max P.2 cm/sec 99.0 cm/sec 109.2 cm/sec 3.1 mmHg MV A max christophe: MV P1/2t: 68.5 msec Ao max PG: LV V1 max: 66.2 cm/sec MVA(P1/2t): 3.2 cm2 4.8 mmHg 87.9 cm/sec MV E/A: 1.8 MV dec slope: LV dP/dt: 909.0 mmHg/s 423.5 cm/sec2 MV dec time: 0.15 sec PA V2 max: PI end-d christophe: TR max christophe: MV P1/2t-pr_phl: 84.4 cm/sec 114.0 cm/sec 443.9 cm/sec 68.5 msec PA max P.9 mmHg TR max P.8 mmHg Left Ventricle The left ventricle is mildly to moderately dilated. There is moderate concentric left ventricular hypertrophy. Left ventricular systolic function is moderate to severely reduced. The Ejection Fraction estimate is 20-25%. Doppler measurements suggest reversible restrictive left ventricular relaxation, which is associated with grade III/IV or moderate diastolic dysfunction. There is moderate to severe global hypokinesis of the left ventricle. Right Ventricle The right ventricle is mild to moderately dilated. The right ventricular systolic function is moderate to severely reduced. Atria The right atrium is mild to moderately dilated. The left atrial size is normal. The interatrial septum is intact with no evidence for an atrial septal defect. Mitral Valve The mitral valve is grossly normal. There is a moderate amount of mitral regurgitation. Aortic Valve The aortic valve opens well. The aortic valve is trileaflet. There is no aortic valve stenosis. No aortic regurgitation is present. Tricuspid Valve The tricuspid valve is normal in structure but shows some degree of being functionally abnormal. There is no tricuspid stenosis. There is a moderate amount of tricuspid regurgitation. There is servere pulmonary hypertension by echo. Best estimated right ventricular systolic pressure is elevated at >60mmHg. Pulmonic Valve The pulmonic valve is not well seen, but is grossly normal. There is a mild amount of pulmonic regurgitation. Great Vessels The aortic root is normal size. The IVC is dilated and has no respiratory collapse suggesting significantly high central venous pressures. Effusions There is no pericardial effusion. : JENNIFER OLMSTEAD Anil
[2019-07-26] MEDS ORDERED: LISINOPRIL 5 MG TABLET PO ONE ×2 (11:25)
[2019-07-26] MEDS ORDERED: FUROSEMIDE 20 MG TABLET PO ONE (11:31)
--- NOTE | 2019-07-26 11:46 | PDOC PROGRESS REPORT ---
Subjective Progress Note for:: 07/26/19 Subjective:: Patient has no complaints today. Denies any chest pain or shortness of breath at this time. Still disoriented. Reason For Visit: DM FOOT,AFIB,PVD Physical Exam Vital Signs: Temp Pulse Resp BP Pulse Ox 97.8 F 104 H 14 156/87 H 98 07/26/19 07:43 07/26/19 08:39 07/26/19 08:39 07/26/19 07:43 07/26/19 08:39 Intake & Output 07/25/19 07/26/19 07/27/19 06:59 06:59 06:59 Intake Total 2350 1674 1200 Output Total 200 Balance 2150 1674 1200 Weight 51.3 kg 54.2 kg General appearance: PRESENT: no acute distress, cooperative Neck exam: ABSENT: JVD Respiratory exam: PRESENT: clear to auscultation miguelito, unlabored. ABSENT: tachypnea, wheezes Cardiovascular exam: PRESENT: RRR, +S1, +S2. ABSENT: tachycardia GI/Abdominal exam: PRESENT: normal bowel sounds, soft. ABSENT: rebound, rigid, tenderness Extremities exam: PRESENT: other - Dry gangrene of the right foot. No significant purulence noted Neurological exam: PRESENT: alert, awake, oriented to person. ABSENT: oriented to place, oriented to time, oriented to situation Results Laboratory Results: 07/26/19 06:09 07/26/19 06:09 07/26/19 07/26/19 07/26/19 05:35 06:09 06:09 WBC 10.3 RBC 3.92 Hgb 10.2 L Hct 31.6 L MCV 81 MCH 26.1 L MCHC 32.4 RDW 16.7 H Plt Count 240 Sodium 138.0 Potassium 3.7 Chloride 108 H Carbon Dioxide 23 Anion Gap 7 BUN 15 Creatinine 0.86 Est GFR ( Amer) > 60 Glucose 90 Calcium 7.9 L Magnesium 1.5 L Triglycerides 44 Cholesterol 74.60 LDL Cholesterol Direct 34 VLDL Cholesterol 9.0 L HDL Cholesterol 31 L Urine Color YELLOW Urine Appearance CLEAR Urine pH 6.0 Ur Specific [place] 1.020 Urine Protein NEGATIVE Urine Glucose (UA) NEGATIVE Urine Ketones NEGATIVE Urine Blood SMALL H Urine Nitrite NEGATIVE Ur Leukocyte Esterase NEGATIVE Urine WBC (Auto) 1 Urine RBC (Auto) 4 Impressions: Extremity Arterial Study 07/24/19 17:43 IMPRESSION: 1. Peripheral arterial disease 2. Occluded right superficial femoral artery, distal popliteal artery, peroneal artery, and mid posterior tibial artery. Collaterals are identified. 3. Markedly diminished flow in the right anterior tibial and dorsalis pedis arteries Foot X-Ray 07/24/19 17:43 IMPRESSION: No evidence of osteomyelitis. Tibia/Fibula X-Ray 07/24/19 18:04 IMPRESSION: No evidence of osteomyelitis. Assessment and Plan - Diagnosis (1) Gangrene of right foot Is this a current diagnosis for this admission?: Yes Plan: Planned for surgical amputation but surgical list will need to discuss with patient's family first regarding consent as patient does have underlying dementia. In the meantime, we will continue with antibiotics IV. Pre-op risk assessment: Patient does have history of CHF, cardiomyopathy and A. fib. Daughter denies history of CAD but patient does have severe PVD making it likely that patient does have some underlying CAD given her cardiomyopathy. PAtient does not appear to be volume overloaded at this time and A. fib is controlled. However, patient likely is moderate to high risk of major cardiac event especially given moderate to severe pulmonary hypertension on echo. Would recommend using spinal anesthesia if general anesthesia can be avoided. Monitor for fluid shifts. Awaiting normalization of INR. Will hold heparin drip tonight. (2) Chronic atrial fibrillation, unspecified Is this a current diagnosis for this admission?: Yes Plan: Continue Toprol-XL. Holding Xarelto. Continue heparin in anticipation of potential surgery. (3) Cardiomyopathy Qualifiers: Cardiomyopathy type: ischemic Qualified Code(s): I25.5 - Ischemic cardiomyopathy Is this a current diagnosis for this admission?: Yes Plan: Suspect may have some underlying ischemic cardiomyopathy especially given severe peripheral artery disease. Never had a history of CAD. Frequent PVCs noted on telemetry likely secondary to cardiomyopathy. Keep potassium over 4 and magnesium over 2. Replete as needed. Continue Toprol-XL. Increase lisinopril to 10 mg daily. Adding Aldactone. Continue Lasix. May require LifeVest upon discharge and outpatient follow-up for ICD placement. Will have cardiology evaluate for LifeVest. (4) Diabetes Is this a current diagnosis for this admission?: Yes Plan: Hold metformin. Currently on Lantus and sliding scale insulin. (5) Peripheral vascular disease in diabetes mellitus Is this a current diagnosis for this admission?: Yes Plan: Severe peripheral vascular disease noted in her right lower extremity. Will start on aspirin following surgery. Lipid panel does not warrant statin. (6) Dementia Qualifiers: Dementia type: unspecified type Dementia behavioral disturbance: without behavioral disturbance Qualified Code(s): F03.90 - Unspecified dementia without behavioral disturbance Is this a current diagnosis for this admission?: Yes Plan: Patient certainly has dementia. Uncertain if Alzheimer's versus vascular. Patient's daughter denies history of strokes to her knowledge. Supportive care and redirection as needed. - Time Time Spent with patient: Less than 15 minutes
[2019-07-26] MEDS: VANCOMYCIN HCL 1,000 MG in DEXTROSE 5%-WATER 250 ML IV SCH (12:17)
[2019-07-26] MEDS: HEPARIN SODIUM,PORCINE/D5W 25,000 UNIT/250 ML RTUINJ IV PRN (12:43)
[2019-07-26 12:58] LABS: INTERNATIONAL RATION (INR) 1.82; PROTHROMBIN TIME 21.3 SEC (11.4-15.4)
--- NOTE | 2019-07-26 13:53 | PDOC CONSULTATION ---
Consultation Consult Date: 07/26/19 Provider Consulted: DONTE PAREDES Consult reason:: Congestive heart failure History of Present Illness Admission Date/PCP: 07/24/19 23:12 WILLIAMS CHAUHAN PA-C Patient complains of: Right lower extremity pain History of Present Illness: KRISTIN DARLING is a 68 year old female Who is a poor historian. She has dementia. Most of the history is per chart. Active problems 1. Congestive heart failure-unknown duration 2. Paroxysmal atrial fibrillation 3. Systemic anticoagulation 4. Peripheral vascular disease 5. Diabetes mellitus 6. Dyslipidemia Patient has presented with infected right lower extremity. Surgical amputation has been recommended. Echocardiogram performed as part of preoperative assessment showed LV dysfunction. Patient has no established cardiology follow- up. No family is present in the room. It is not clear to me how long she has had a diagnosis of congestive heart failure. Patient claims that she smokes cigarettes about only 2 a day. Presently is not complaining of chest pain or dyspnea. Family history cannot be obtained due to poor recall and dementia. No surgeries are mentioned by the patient. Past Medical History Cardiac Medical History: Reports: Atrial Fibrillation, Hypertension Neurological Medical History: Reports: Other - dementia Endocrine Medical History: Reports: Diabetes Mellitus Type 2, Hypothyroidism Psychiatric Medical History: Reports: Dementia Past Surgical History Past Surgical History: Reports: Section Social History Lives with: Family Smoking Status: Current Every Day Smoker Drugs: None - Advance Directive Resuscitation Status: Full Code Family History Family History: Other - Unobtainable Parental Family History Reviewed: No - Unable to obtain family history due to dementia Children Family History Reviewed: NA Sibling(s) Family History Reviewed.: NA Medication/Allergy Home Medications: Furosemide [Lasix 20 mg Tablet] 20 mg PO BID #60 tablet 12/19/17 Lisinopril 5 mg PO DAILY #30 tablet 12/19/17 Magnesium Oxide [Mag-Ox 400 mg Tablet] 400 mg PO DAILY #30 tablet 12/19/17 Metoprolol Succinate 25 mg PO DAILY #30 tab.er.24h 12/19/17 Cephalexin Monohydrate [Keflex 500 mg Capsule] 500 mg PO DAILY 07/25/19 Levothyroxine Sodium [Synthroid 0.025 mg Tablet] 25 mcg PO Q6AM 07/25/19 Metformin HCl [Glucophage 500 mg Tablet] 500 mg PO BIDACBS 07/25/19 Potassium Chloride [Klor-Con 10] 20 meq PO DAILY 07/25/19 Rivaroxaban [Xarelto] 20 mg PO DAILY 07/25/19 Allergies/Adverse Reactions: No Known Allergies Allergy (Verified 07/24/19 17:25) Review of Systems ROS unobtainable: Other - Unable to obtain review of systems adequately due to dementia Constitutional: PRESENT: as per HPI Cardiovascular: PRESENT: as per HPI, chest pain. ABSENT: dyspnea on exertion, edema, orthropnea, palpitations, other Respiratory: ABSENT: as per HPI, cough, dyspnea, hemoptysis, sputum, other Physical Exam Vital Signs: Temp Pulse Resp BP Pulse Ox 98.2 F 99 16 152/81 H 98 07/26/19 11:20 07/26/19 11:20 07/26/19 11:20 07/26/19 11:20 07/26/19 11:20 Intake & Output 07/25/19 07/26/19 07/27/19 06:59 06:59 06:59 Intake Total 2350 1674 1348 Output Total 200 Balance 2150 1674 1348 Weight 51.3 kg 54.2 kg General appearance: PRESENT: no acute distress, cooperative, thin, well- developed Head exam: PRESENT: atraumatic, normocephalic Eye exam: PRESENT: conjunctiva pink, conjunctiva pale, EOMI Mouth exam: PRESENT: moist Respiratory exam: PRESENT: clear to auscultation miguelito, symmetrical, unlabored Cardiovascular exam: PRESENT: RRR, +S1, +S2, systolic murmur Pulses: PRESENT: normal radial pulses Extremities exam: PRESENT: other - Right lower extremity-dark, skin is unhealthy , dry gangrene Neurological exam: PRESENT: awake, oriented to person, oriented to place Psychiatric exam: PRESENT: appropriate affect Results Laboratory Results: 07/26/19 06:09 07/26/19 06:09 07/26/19 07/26/19 07/26/19 05:35 06:09 06:09 WBC 10.3 RBC 3.92 Hgb 10.2 L Hct 31.6 L MCV 81 MCH 26.1 L MCHC 32.4 RDW 16.7 H Plt Count 240 Sodium 138.0 Potassium 3.7 Chloride 108 H Carbon Dioxide 23 Anion Gap 7 BUN 15 Creatinine 0.86 Est GFR ( Amer) > 60 Glucose 90 Calcium 7.9 L Magnesium 1.5 L Triglycerides 44 Cholesterol 74.60 LDL Cholesterol Direct 34 VLDL Cholesterol 9.0 L HDL Cholesterol 31 L Urine Color YELLOW Urine Appearance CLEAR Urine pH 6.0 Ur Specific [place] 1.020 Urine Protein NEGATIVE Urine Glucose (UA) NEGATIVE Urine Ketones NEGATIVE Urine Blood SMALL H Urine Nitrite NEGATIVE Ur Leukocyte Esterase NEGATIVE Urine WBC (Auto) 1 Urine RBC (Auto) 4 EKG Comments: Twelve-lead EKG 07/25/2019 Sinus rhythm, 79 bpm nonspecific T wave abnormality Telemetry Sinus rhythm, sinus tachycardia, episodes of atrial fibrillation, PVCs Transthoracic echocardiogram 07/26/2019 Left ventricular ejection fraction is estimated at 20 to 25%. Severe right ventricular dysfunction is also noted Moderate mitral regurgitation, moderate tricuspid regurgitation Severe pulmonary hypertension Impressions: Extremity Arterial Study 07/24/19 17:43 IMPRESSION: 1. Peripheral arterial disease 2. Occluded right superficial femoral artery, distal popliteal artery, peroneal artery, and mid posterior tibial artery. Collaterals are identified. 3. Markedly diminished flow in the right anterior tibial and dorsalis pedis arteries Foot X-Ray 07/24/19 17:43 IMPRESSION: No evidence of osteomyelitis. Tibia/Fibula X-Ray 07/24/19 18:04 IMPRESSION: No evidence of osteomyelitis. Assessment & Plan - Diagnosis (1) Atrial fibrillation Qualifiers: Atrial fibrillation type: paroxysmal Qualified Code(s): I48.0 - Paroxysmal atrial fibrillation Is this a current diagnosis for this admission?: Yes Plan: Increased risk for thromboembolism given paroxysmal atrial fibrillation and cardiomyopathy We recommend continued systemic anticoagulation with interruption as necessary for surgery with resumption as soon as feasible. Would recommend rate control strategy with systemic anticoagulation given absence of symptoms. (2) Diabetes Is this a current diagnosis for this admission?: Yes Plan: This is being managed. (3) Gangrene of right foot Is this a current diagnosis for this admission?: Yes Plan: Surgical amputation is deemed necessary From a volume standpoint patient appears to be stable and fairly euvolemic with clear lung jones. She has moderate to severe left ventricular dysfunction with ejection fraction estimated at 20 to 25% but appears to be compensated She is at increased risk for planned procedure on account of LV dysfunction. Given the circumstances with infection and impending sepsis re-stratification is not feasible or necessary. Should avoid volume shifts, volume overload and assuming she has underlying coronary artery disease given peripheral vascular disease should try to minimize myocardial oxygen consumption. (4) Cardiomyopathy Qualifiers: Cardiomyopathy type: ischemic Qualified Code(s): I25.5 - Ischemic cardiomyopathy Is this a current diagnosis for this admission?: Yes Plan: Dilated cardiomyopathy with left ventricular dysfunction with ejection fraction estimated at 20 to 25%. Moderate pulmonary hypertension is noted as well likely secondary Presently appears to be euvolemic and optimized. Would recommend outpatient ischemia evaluation for etiology of cardiomyopathy Continue medications for dilated cardiomyopathy as now. Watch volume status Reasonable to consider wearable defibrillator for outpatient follow-up. - Notes Notes: Dilated cardiomyopathy by echocardiogram. Etiology of cardiomyopathy needs to be established later. Infected right lower extremity with gangrene which will require surgery. Acceptable but increased risk on account of LV dysfunction: However patient appears euvolemic and optimized. Outpatient follow-up for cardiomyopathy and ischemia evaluation when feasible.
[2019-07-26] MEDS ORDERED: DEXTROSE 40% GEL 15 GM TUBE PO PRN ×2 (17:16)
[2019-07-26] MEDS ORDERED: GLUCAGON,HUMAN RECOMB 1 MG INJ SUBCUT PRN (17:16)
[2019-07-26] MEDS ORDERED: DEXTROSE 50%-WATER 25 GM/50 ML DISP.SYRIN IV PRN ×2 (17:16)
--- NOTE | 2019-07-26 17:25 | PDOC PROGRESS REPORT ---
Subjective Progress Note for:: 07/26/19 Subjective:: Denies any pains. Reason For Visit: DM FOOT,AFIB,PVD Physical Exam Vital Signs: Temp Pulse Resp BP Pulse Ox 99.3 F 92 16 141/89 H 100 07/26/19 15:48 07/26/19 15:48 07/26/19 15:48 07/26/19 15:48 07/26/19 15:48 Intake & Output 07/25/19 07/26/19 07/27/19 06:59 06:59 06:59 Intake Total 2350 1674 1698 Output Total 200 Balance 2150 1674 1698 Weight 51.3 kg 54.2 kg Exam: Right toes with fairly dry gangrene. The toes are cool but the foot at the ankle area appears to be warm. Unable to palpate right popliteal artery but has good right femoral artery pulse. Results Laboratory Results: 07/26/19 06:09 07/26/19 06:09 07/26/19 07/26/19 07/26/19 05:35 06:09 06:09 WBC 10.3 RBC 3.92 Hgb 10.2 L Hct 31.6 L MCV 81 MCH 26.1 L MCHC 32.4 RDW 16.7 H Plt Count 240 Sodium 138.0 Potassium 3.7 Chloride 108 H Carbon Dioxide 23 Anion Gap 7 BUN 15 Creatinine 0.86 Est GFR ( Amer) > 60 Glucose 90 Calcium 7.9 L Magnesium 1.5 L Triglycerides 44 Cholesterol 74.60 LDL Cholesterol Direct 34 VLDL Cholesterol 9.0 L HDL Cholesterol 31 L Urine Color YELLOW Urine Appearance CLEAR Urine pH 6.0 Ur Specific [place] 1.020 Urine Protein NEGATIVE Urine Glucose (UA) NEGATIVE Urine Ketones NEGATIVE Urine Blood SMALL H Urine Nitrite NEGATIVE Ur Leukocyte Esterase NEGATIVE Urine WBC (Auto) 1 Urine RBC (Auto) 4 Impressions: Extremity Arterial Study 07/24/19 17:43 IMPRESSION: 1. Peripheral arterial disease 2. Occluded right superficial femoral artery, distal popliteal artery, peroneal artery, and mid posterior tibial artery. Collaterals are identified. 3. Markedly diminished flow in the right anterior tibial and dorsalis pedis arteries Foot X-Ray 07/24/19 17:43 IMPRESSION: No evidence of osteomyelitis. Tibia/Fibula X-Ray 07/24/19 18:04 IMPRESSION: No evidence of osteomyelitis. Assessment & Plan - Time Critical Time spent with patient: 15-24 minutes - Inpatient Certification Medical Necessity: Need for Surgery - Plan Summary Plan Summary: 68-year-old female with peripheral vascular disease and fairly dry gangrene of the right toes. Had an echocardiogram today which showed ejection fraction of 20 to 25%. His INR this afternoon was 1.84. I discussed the case with the hospitalist who suggested in using a spinal anesthesia because of her poor cardiac status. Plans: For right BKA amputation tomorrow. Discussed procedure and mention risks to patient's daughter who who gave consent We will check INR in a.m. and if still elevated we may have to give at least 1 unit of FFP
[2019-07-26] MEDS ORDERED: SPIRONOLACTONE 25 MG TABLET PO SCH (18:00)
[2019-07-26] MEDS ORDERED: FUROSEMIDE 20 MG TABLET PO SCH (18:00)
[2019-07-26] MEDS: METOPROLOL SUCCINATE 25 MG TAB.SR.24H PO SCH (21:51)
[2019-07-26] MEDS: INSULIN GLARGINE,HUM.REC.ANLOG 1,000 UNIT/10 ML VIAL SUBCUT SCH (21:57)
[2019-07-27] MEDS: PIPERACILLIN SODIUM/TAZOBACTAM 3.375 GM in NORMAL SALINE 100 ML IV SCH ×2 (03:13→08:57)
[2019-07-27 06:17] LABS: ANION GAP 13 (5-19); BLOOD UREA NITROGEN 21 mg/dL (7-20); CALCIUM 8.5 mg/dL (8.4-10.2); CARBON DIOXIDE 15 mmol/L (22-30); CHLORIDE 108 mmol/L (98-107); GLUCOSE 119 mg/dL (75-110)
[2019-07-27 06:18] LABS: PARTIAL THROMBOPLASTIN TIME 46.2 SEC (23.5-35.8)
[2019-07-27 06:22] LABS: POTASSIUM 5.4 mmol/L (3.6-5.0)
[2019-07-27] MEDS: LEVOTHYROXINE SODIUM 0.025 MG TABLET PO SCH (06:22)
[2019-07-27 06:26] LABS: INTERNATIONAL RATION (INR) 3.09
[2019-07-27 06:28] LABS: PROTHROMBIN TIME 32.6 SEC (11.4-15.4)
[2019-07-27] MEDS: INSULIN LISPRO 100 UNIT/ML 3 ML VIAL SUBCUT SCH ×3 (08:20→17:55)
[2019-07-27] MEDS ORDERED: NORMAL SALINE 1000 ML 500 ML IV ONE (09:06)
[2019-07-27] MEDS: METOPROLOL SUCCINATE 25 MG TAB.SR.24H PO SCH (09:25)
[2019-07-27] MEDS ORDERED: FUROSEMIDE INJ/PF 20 MG/2 ML SDV IV ONE (09:30)
[2019-07-27] MEDS ORDERED: NORMAL SALINE 500 ML IV ONE (09:30)
[2019-07-27] MEDS ORDERED: SUCCINYLCHOLINE CHLORIDE INJ 200 MG/10 ML VIAL ONE (09:56)
[2019-07-27] MEDS ORDERED: PHENYLEPHRINE HCL INJ/PF 10 MG/1 ML SDV ONE (09:56)
[2019-07-27] MEDS ORDERED: LISINOPRIL 5 MG TABLET PO SCH ×2 (10:00)
--- NOTE | 2019-07-27 10:22 | PDOC PROGRESS REPORT ---
Subjective Progress Note for:: 07/27/19 Subjective:: Lying in bed comfortably. No distress or discomfort reported. Reason For Visit: DM FOOT,AFIB,PVD Physical Exam Vital Signs: Temp Pulse Resp BP Pulse Ox 98.5 F 67 16 129/77 H 99 07/27/19 08:00 07/27/19 08:12 07/27/19 08:12 07/27/19 08:00 07/27/19 08:12 Intake & Output 07/26/19 07/27/19 07/28/19 06:59 06:59 06:59 Intake Total 1674 2492 Balance 1674 2492 Weight 54.2 kg 56 kg General appearance: PRESENT: no acute distress, cooperative, thin Head exam: PRESENT: atraumatic, normocephalic Eye exam: PRESENT: conjunctiva pale, EOMI Mouth exam: PRESENT: moist Respiratory exam: PRESENT: decreased breath sounds, symmetrical, unlabored Cardiovascular exam: PRESENT: RRR, +S1, +S2 Pulses: PRESENT: normal radial pulses GI/Abdominal exam: PRESENT: soft Rectal exam: PRESENT: deferred Musculoskeletal exam: PRESENT: normal inspection Neurological exam: PRESENT: alert, awake, oriented to person, oriented to place, oriented to time, oriented to situation Psychiatric exam: PRESENT: appropriate affect Skin exam: PRESENT: dry, intact Results Laboratory Results: 07/26/19 06:09 07/27/19 05:23 07/27/19 05:23 Sodium 135.9 L Potassium 5.4 H D Chloride 108 H Carbon Dioxide 15 L Anion Gap 13 BUN 21 H Creatinine 1.35 H Est GFR ( Amer) 47 L Glucose 119 H Calcium 8.5 Magnesium 2.2 Impressions: Extremity Arterial Study 07/24/19 17:43 IMPRESSION: 1. Peripheral arterial disease 2. Occluded right superficial femoral artery, distal popliteal artery, peroneal artery, and mid posterior tibial artery. Collaterals are identified. 3. Markedly diminished flow in the right anterior tibial and dorsalis pedis arteries Foot X-Ray 07/24/19 17:43 IMPRESSION: No evidence of osteomyelitis. Tibia/Fibula X-Ray 07/24/19 18:04 IMPRESSION: No evidence of osteomyelitis. Assessment & Plan - Diagnosis (1) Atrial fibrillation Qualifiers: Atrial fibrillation type: paroxysmal Qualified Code(s): I48.0 - Paroxysmal atrial fibrillation Is this a current diagnosis for this admission?: Yes Plan: Rate control strategy Systemic anticoagulation to be interrupted in anticipation of right BKA. Would resume as soon as feasible given increased stroke risk (2) Diabetes Is this a current diagnosis for this admission?: Yes Plan: This is being managed (3) Gangrene of right foot Is this a current diagnosis for this admission?: Yes Plan: Planning for surgery for right BKA given dry gangrene of this lower extremity. Surgical and anesthesia risk is in account of LV dysfunction and probable underlying coronary artery disease which were unable to work-up in the present context. Surgery is necessary in account of threat to limb and life. (4) Cardiomyopathy Qualifiers: Cardiomyopathy type: ischemic Qualified Code(s): I25.5 - Ischemic cardiomyopathy Is this a current diagnosis for this admission?: Yes Plan: Dilated cardiomyopathy with LV dysfunction and pulmonary hypertension probably secondary to this. Medications per guideline for dilated cardiomyopathy and congestive heart failure Patient appears to be euvolemic at the moment Will require outpatient evaluation and continued follow-up. We will have to watch volume status carefully perioperatively and while in hospital.
--- NOTE | 2019-07-27 10:38 | PDOC PROGRESS REPORT ---
Subjective Progress Note for:: 07/27/19 Subjective:: No pains. Appears comfortable. Just slightly confused Reason For Visit: DM FOOT,AFIB,PVD Physical Exam Vital Signs: Temp Pulse Resp BP Pulse Ox 98.5 F 67 16 129/77 H 99 07/27/19 08:00 07/27/19 08:12 07/27/19 08:12 07/27/19 08:00 07/27/19 08:12 Intake & Output 07/26/19 07/27/19 07/28/19 06:59 06:59 06:59 Intake Total 1674 2492 Balance 1674 2492 Weight 54.2 kg 56 kg Exam: Gangrene of the right toes appeared to be dry and no tenderness. However the foot feels cool. The calf is warm. Remains afebrile and WBC is normal as of yesterday. Results Laboratory Results: 07/26/19 06:09 07/27/19 05:23 07/27/19 05:23 Sodium 135.9 L Potassium 5.4 H D Chloride 108 H Carbon Dioxide 15 L Anion Gap 13 BUN 21 H Creatinine 1.35 H Est GFR ( Amer) 47 L Glucose 119 H Calcium 8.5 Magnesium 2.2 Impressions: Extremity Arterial Study 07/24/19 17:43 IMPRESSION: 1. Peripheral arterial disease 2. Occluded right superficial femoral artery, distal popliteal artery, peroneal artery, and mid posterior tibial artery. Collaterals are identified. 3. Markedly diminished flow in the right anterior tibial and dorsalis pedis arteries Foot X-Ray 07/24/19 17:43 IMPRESSION: No evidence of osteomyelitis. Tibia/Fibula X-Ray 07/24/19 18:04 IMPRESSION: No evidence of osteomyelitis. Assessment & Plan - Diagnosis (1) Atrial fibrillation Qualifiers: Atrial fibrillation type: paroxysmal Qualified Code(s): I48.0 - Paroxysmal atrial fibrillation Is this a current diagnosis for this admission?: Yes (2) Cardiomyopathy Qualifiers: Cardiomyopathy type: ischemic Qualified Code(s): I25.5 - Ischemic cardiomyopathy Is this a current diagnosis for this admission?: Yes (3) Dementia Qualifiers: Dementia type: unspecified type Dementia behavioral disturbance: without behavioral disturbance Qualified Code(s): F03.90 - Unspecified dementia without behavioral disturbance Is this a current diagnosis for this admission?: Yes (4) Diabetes Is this a current diagnosis for this admission?: Yes (5) Dry gangrene Is this a current diagnosis for this admission?: Yes (6) Gangrene of right foot Is this a current diagnosis for this admission?: Yes (7) Peripheral vascular disease in diabetes mellitus Is this a current diagnosis for this admission?: Yes - Time Critical Time spent with patient: 15-24 minutes - Inpatient Certification Medical Necessity: Need for IV Antibiotics, Need for Surgery - Plan Summary Plan Summary: 68-year-old female with diabetes and dementia and now with dry gangrene of the right was. Has severe arterial insufficiency of the right leg. She has e jection fraction of 25% on her echocardiogram done yesterday and makes her high risk for any surgical intervention she still needs right below-knee amputation with the likely need for at least a spinal anesthesia. However her INR this morning went up to 3.0 I have discussed the case with the hospitalist who will try to correct her INR with vitamin K. Not sure what the etiology of the elevated INR could be from Xarelto versus liver failure. IV heparin should not necessarily increase the INR. The plan is to hold off BKA today and possibly do the surgery when the INR is more acceptable hopefully in the next 24 to 48 hours I have informed her daughter on the phone Rhona Garcia about above plans.
[2019-07-27] MEDS ORDERED: FUROSEMIDE INJ/PF 20 MG/2 ML SDV ONE (12:06)
[2019-07-27] MEDS: DOCUSATE SODIUM 100 MG CAPSULE PO SCH ×2 (12:08→18:04)
[2019-07-27] MEDS: MAGNESIUM OXIDE 400 MG TABLET PO SCH (12:08)
[2019-07-27 12:14] LABS: VANCOMYCIN,TROUGH 14.6 ug/mL (5.0-20.0)
[2019-07-27] MEDS ORDERED: PHYTONADIONE INJ 10 MG/1 ML AMPULE SUBCUT ONE (13:00)
--- NOTE | 2019-07-27 14:08 | PDOC PROGRESS REPORT ---
Subjective Progress Note for:: 07/27/19 Subjective:: Patient feels well. She has no complaints at this time. Denies any shortness of breath. Unfortunately she will be able to take him for surgery today because of INR. Reason For Visit: DM FOOT,AFIB,PVD Physical Exam Vital Signs: Temp Pulse Resp BP Pulse Ox 98.0 F 70 17 131/74 H 96 07/27/19 11:10 07/27/19 11:10 07/27/19 11:10 07/27/19 11:10 07/27/19 11:10 Intake & Output 07/26/19 07/27/19 07/28/19 06:59 06:59 06:59 Intake Total 1674 2492 100 Balance 1674 2492 100 Weight 54.2 kg 56 kg General appearance: PRESENT: no acute distress, cooperative Neck exam: ABSENT: JVD Respiratory exam: PRESENT: clear to auscultation miguelito, unlabored. ABSENT: tachypnea, wheezes Cardiovascular exam: PRESENT: RRR, +S1, +S2. ABSENT: tachycardia GI/Abdominal exam: PRESENT: soft. ABSENT: rebound, rigid, tenderness Extremities exam: PRESENT: other - Dry gangrene on cold extremities of the right foot. Neurological exam: PRESENT: alert, awake, oriented to person. ABSENT: oriented to place, oriented to time, oriented to situation Results Laboratory Results: 07/26/19 06:09 07/27/19 05:23 07/27/19 05:23 Sodium 135.9 L Potassium 5.4 H D Chloride 108 H Carbon Dioxide 15 L Anion Gap 13 BUN 21 H Creatinine 1.35 H Est GFR ( Amer) 47 L Glucose 119 H Calcium 8.5 Magnesium 2.2 Impressions: Extremity Arterial Study 07/24/19 17:43 IMPRESSION: 1. Peripheral arterial disease 2. Occluded right superficial femoral artery, distal popliteal artery, peroneal artery, and mid posterior tibial artery. Collaterals are identified. 3. Markedly diminished flow in the right anterior tibial and dorsalis pedis arteries Foot X-Ray 07/24/19 17:43 IMPRESSION: No evidence of osteomyelitis. Tibia/Fibula X-Ray 07/24/19 18:04 IMPRESSION: No evidence of osteomyelitis. Assessment and Plan - Diagnosis (1) Gangrene of right foot Is this a current diagnosis for this admission?: Yes Plan: Dry gangrene. Planned for surgical amputation but surgical list will need to discuss with patient's family first regarding consent as patient does have underlying dementia. In the meantime, we will continue with antibiotics IV. Pre-op risk assessment: Patient does have history of CHF, cardiomyopathy and A. fib. Daughter denies history of CAD but patient does have severe PVD making it likely that patient does have some underlying CAD given her cardiomyopathy. PAtient does not appear to be volume overloaded at this time and A. fib is controlled. However, patient likely is moderate to high risk of major cardiac event especially given moderate to severe pulmonary hypertension on echo. Would recommend using spinal anesthesia if general anesthesia can be avoided. Monitor for fluid shifts. Awaiting normalization of INR. Will hold heparin drip tonight. 07/27/2019 Unfortunately, patient will not be able to be taken to the OR today due to elevated INR. Heparin drip discontinued given elevated INR. INR elevation was suspected to be secondary to Xarelto but has increased to over 3 despite discontinuation of Xarelto. I will give a dose of 5 mg subcutaneous vitamin K to see if it helps even though not much effect may be seen if the cost is truly Xarelto. Patient's daughter denies any history of patient having liver disease. Will check INR tomorrow and PTT. Continue IV antibiotics. Leukocytosis seems to have resolved. (2) Chronic atrial fibrillation, unspecified Is this a current diagnosis for this admission?: Yes Plan: Continue Toprol-XL. Holding Xarelto. Heparin drip discontinued. (3) Cardiomyopathy Qualifiers: Cardiomyopathy type: ischemic Qualified Code(s): I25.5 - Ischemic cardiomyopathy Is this a current diagnosis for this admission?: Yes Plan: Suspect may have some underlying ischemic cardiomyopathy especially given severe peripheral artery disease. Never had a Dx of CAD. Frequent PVCs noted on telemetry likely secondary to cardiomyopathy. Keep potassium over 4 and magnesium over 2. Continue Toprol-XL. Lisinopril 10 mg daily. Aldactone started yesterday but held due to GAGANDEEP and hyperkalemia this morning. May require LifeVest upon discharge and outpatient follow-up for ICD placement. Will have cardiology evaluate for LifeVest. (4) Hyperkalemia Is this a current diagnosis for this admission?: Yes Plan: Potentially secondary to KCL repletion yesterday, spironolactone initiation and possible dying tissue from gangrenous foot. Hold Aldactone for now. Lisinopril dose held today. Continue Lasix. Normal saline bolus. Monitor BMP. (5) Diabetes Is this a current diagnosis for this admission?: Yes Plan: Hold metformin. Currently on Lantus and sliding scale insulin. (6) Peripheral vascular disease in diabetes mellitus Is this a current diagnosis for this admission?: Yes Plan: Severe peripheral vascular disease noted in her right lower extremity. Will start on aspirin following surgery. Lipid panel does not warrant statin. (7) Dementia Qualifiers: Dementia type: unspecified type Dementia behavioral disturbance: without behavioral disturbance Qualified Code(s): F03.90 - Unspecified dementia without behavioral disturbance Is this a current diagnosis for this admission?: Yes Plan: Patient certainly has dementia. Uncertain if Alzheimer's versus vascular. Patient's daughter denies history of strokes to her knowledge. Supportive care and redirection as needed. - Time Time Spent with patient: Less than 15 minutes
[2019-07-27 16:54] LABS: BLOOD UREA NITROGEN 25 mg/dL (7-20); CALCIUM 8.5 mg/dL (8.4-10.2); CHLORIDE 107 mmol/L (98-107); GLUCOSE 101 mg/dL (75-110); POTASSIUM 5.4 mmol/L (3.6-5.0)
[2019-07-27 17:22] LABS: ANION GAP 18 (5-19)
[2019-07-27 17:23] LABS: CARBON DIOXIDE 10 mmol/L (22-30)
[2019-07-27] MEDS ORDERED: VANCOMYCIN HCL 500 MG in DEXTROSE 5%-WATER 100 ML IV SCH (18:00)
[2019-07-27] MEDS: PIPERACILLIN SODIUM/TAZOBACTAM 2.25 GM in NORMAL SALINE 50 ML IV SCH (18:02)
[2019-07-27 18:31] LABS: VENOUS BLOOD BASE EXCESS -10.1 mmol/L; VENOUS BLOOD PCO2 21.9 mmHg (35-63); VENOUS BLOOD PH 7.39 (7.30-7.42)
[2019-07-27] MEDS: FUROSEMIDE 20 MG TABLET PO SCH (19:00)
[2019-07-27] MEDS ORDERED: NORMAL SALINE 1000 ML 1,000 ML IV PRN (20:59)
[2019-07-27] MEDS ORDERED: DEXTROSE 5%-WATER 1000 ML 1,000 ML with SODIUM BICARBONATE 150 MEQ IV PRN ×6 (21:12→21:19)
--- NOTE | 2019-07-27 21:23 | PDOC PROGRESS REPORT ---
Subjective Progress Note for:: 07/27/19 Subjective:: Patient denies any pains the patient is quite demented. At one point of touching her foot she felt some pains. Reason For Visit: DM FOOT,AFIB,PVD Physical Exam Vital Signs: Temp Pulse Resp BP Pulse Ox 98.6 F 69 18 126/68 H 98 07/27/19 15:27 07/27/19 15:27 07/27/19 15:27 07/27/19 15:27 07/27/19 15:27 Intake & Output 07/26/19 07/27/19 07/28/19 06:59 06:59 06:59 Intake Total 1674 2492 1572 Output Total 3 Balance 1674 2492 1569 Weight 54.2 kg 56 kg Exam: Right toes remain gangrenous but the foot itself appears some more swelling. The foot itself is cool but it is warm right at the heel and above. Results Laboratory Results: 07/26/19 06:09 07/27/19 16:20 07/27/19 07/27/19 07/27/19 05:23 16:20 18:20 VBG pH 7.39 VBG pCO2 21.9 L VBG HCO3 13.0 L VBG Base Excess -10.1 Sodium 135.9 L 134.9 L Potassium 5.4 H D 5.4 H Chloride 108 H 107 Carbon Dioxide 15 L 10 L* Anion Gap 13 18 BUN 21 H 25 H Creatinine 1.35 H 1.45 H Est GFR ( Amer) 47 L 43 L Glucose 119 H 101 Lactic Acid Calcium 8.5 8.5 Magnesium 2.2 Blood Type Antibody Screen 07/27/19 07/27/19 20:01 20:01 VBG pH VBG pCO2 VBG HCO3 VBG Base Excess Sodium Potassium Chloride Carbon Dioxide Anion Gap BUN Creatinine Est GFR ( Amer) Glucose Lactic Acid 7.6 H Calcium Magnesium Blood Type O POSITIVE Antibody Screen NEGATIVE Impressions: Extremity Arterial Study 07/24/19 17:43 IMPRESSION: 1. Peripheral arterial disease 2. Occluded right superficial femoral artery, distal popliteal artery, peroneal artery, and mid posterior tibial artery. Collaterals are identified. 3. Markedly diminished flow in the right anterior tibial and dorsalis pedis arteries Foot X-Ray 07/24/19 17:43 IMPRESSION: No evidence of osteomyelitis. Tibia/Fibula X-Ray 07/24/19 18:04 IMPRESSION: No evidence of osteomyelitis. Assessment & Plan - Diagnosis (1) Atrial fibrillation Qualifiers: Atrial fibrillation type: paroxysmal Qualified Code(s): I48.0 - Paroxysmal atrial fibrillation Is this a current diagnosis for this admission?: Yes (2) Cardiomyopathy Qualifiers: Cardiomyopathy type: ischemic Qualified Code(s): I25.5 - Ischemic cardiomyopathy Is this a current diagnosis for this admission?: Yes (3) Dementia Qualifiers: Dementia type: unspecified type Dementia behavioral disturbance: without behavioral disturbance Qualified Code(s): F03.90 - Unspecified dementia without behavioral disturbance Is this a current diagnosis for this admission?: Yes (4) Diabetes Is this a current diagnosis for this admission?: Yes (5) Dry gangrene Is this a current diagnosis for this admission?: Yes (6) Gangrene of right foot Is this a current diagnosis for this admission?: Yes (7) Peripheral vascular disease in diabetes mellitus Is this a current diagnosis for this admission?: Yes - Time Critical Time spent with patient: 25-34 minutes - Plan Summary Plan Summary: 68-year-old female with gangrene of the right toes with dementia and poor cardiac function 25% ejection fraction. Patient history of atrial fib on Xarelto when off Xarelto for the past few days. Her INR was trending down yesterday but today went up to 3.09. This afternoon's CO2 level was 10 and tonight lactic acid was 7.6. Clinically patient showing some signs of sepsis and chemical grimes definitely with acidosis and marked elevation of lactic acid. I feel that patient needs to have an emergency guillotine amputation of the right below-knee likely just at the ankle level because of elevated INR. I feel that at the ankle level bleeding should easily be well controlled with the patient having severe arterial insufficiency said to be a lot easier to control any bleeding. This will also be fast procedure and just to get rid of the source of the infection and later on when she is more stable to undergo more formal below-knee amputation with better parameters. I talked to the anesthesiologist and told her that this is an emergent procedure and the fact that patient had dinner at 5PM will just have to do it under local MAC with more risks for aspiration versus general anesthesia. I feel that getting rid of the source of the sepsis outweighs the risks. I also spoke to her daughter who gave consent for the amputation and mention to her the urgency of the situation. Patient is full code. Meantime will give the patient fresh frozen plasma as soon as possible and give her some hydration.
--- NOTE | 2019-07-27 21:36 | Progress Note ---
Provider Note Provider Note: Repeat BMP revealed persistent hyperkalemia, worsened renal function and bicarb of 10 despite receiving fluids and lasix earlier. VBG ordered stat revealing compensated metabolic acidosis. Lactic acid ordered which is 7. These are likely complication from patient's gangrenous foot. Discussed case with Dr. Taylor and we have agreed that patient will be taken in for emergency amputation for source control tonight in light of this new development. NS administered. INR will be reversed temporarily via 2units of FFPs. Follow up labs in the morning.
[2019-07-27] MEDS: INSULIN GLARGINE,HUM.REC.ANLOG 1,000 UNIT/10 ML VIAL SUBCUT SCH (22:00)
[2019-07-27] MEDS ORDERED: MIDAZOLAM 2 MG/2 ML INJ ONE (22:45)
[2019-07-27] MEDS ORDERED: FENTANYL CITRATE INJ/PF 100 MCG/2 ML AMPUL ONE (22:45)
[2019-07-27] MEDS ORDERED: ONDANSETRON HCL INJ/PF 4 MG/2 ML SDV ONE (22:46)
[2019-07-27] MEDS ORDERED: PROPOFOL INJ 200 MG/20 ML VIAL IV ONE (22:46)
[2019-07-27] MEDS ORDERED: EPHEDRINE SULFATE INJ 50 MG/1 ML AMPULE ONE (22:46)
[2019-07-27] MEDS ORDERED: MORPHINE SULFATE 10 MG/ML INJ ONE (22:46)
[2019-07-28] MEDS ORDERED: ONDANSETRON HCL INJ/PF 4 MG/2 ML SDV IV PRN (00:04)
[2019-07-28] MEDS ORDERED: MEPERIDINE HCL/PF INJ 25 MG/1 ML DISP.SYRIN IV PRN (00:04)
[2019-07-28] MEDS ORDERED: DIPHENHYDRAMINE HCL 50 MG/ML VIAL IV PRN (00:04)
[2019-07-28] MEDS ORDERED: FENTANYL CITRATE INJ/PF 100 MCG/2 ML AMPUL IV PRN ×3 (00:04)
[2019-07-28] MEDS ORDERED: PROMETHAZINE HCL INJ 25 MG/1 ML VIAL IV PRN ×2 (00:04)
[2019-07-28] MEDS ORDERED: OXYCODONE-ACETAMINOPHEN 5-325 MG TABLET PO PRN ×2 (00:04)
[2019-07-28] MEDS ORDERED: MORPHINE SULFATE 10 MG/ML INJ IV PRN (00:04)
[2019-07-28] MEDS: METOPROLOL SUCCINATE 25 MG TAB.SR.24H PO SCH ×3 (00:20→22:37)
[2019-07-28] MEDS: PIPERACILLIN SODIUM/TAZOBACTAM 2.25 GM in NORMAL SALINE 50 ML IV SCH ×5 (00:22→23:03)
--- NOTE | 2019-07-28 00:33 | Operative Report ---
Operative Report DATE OF SURGERY: 07/28/19 PREOPERATIVE DIAGNOSIS: Gangrene of the right toes with sepsis POSTOPERATIVE DIAGNOSIS: Same OPERATION: Right ankle amputation SURGEON: JOE BUCKLEY ANESTHESIA: GA TISSUE REMOVED OR ALTERED: Right foot COMPLICATIONS: None ESTIMATED BLOOD LOSS: 20 cc QUANTITATIVE BLOOD LOSS: 20 INTRAOPERATIVE FINDINGS: Gangrene of the right toes. Right ankle tissues appear to be viable with no gross evidence of infection PROCEDURE: After adequate general anesthesia patient was then placed in supine position and the right foot and lower leg were then prepped and draped in the usual sterile fashion. Appropriate timeout was then called. Circumferential incision made over the ankle through the skin layer and deepened down to the subcu and fascia with the 15 blade. There is a small amount of bleeding and couple of these bleeders were clamped divided and ligated proximally with 2-0 Vicryl ties. The tendons were then divided sharply. The anterior tibial bone's periosteum was elevated with a periosteal elevator as well as the lateral aspect of the fibula. With the use of saw the anterior tibial and fibula were then divided transversely. The remaining posterior tendons and muscle were then sharply divided with 15 blade. There were some bleeders that were clamped cut and then ligated with 2-0 Vicryl ties some of the smaller vessels were clipped with hemoclips. The anterior tibial artery noted to be calcified with minimal bleeding. Posterior tibial artery showed no bleeding and appears to be occluded. The foot was then passed off the table to be sent to Pathology.There is a little bit of oozing on the tibial bone and this was then controlled by placement of Surgicel. The stump which was left open was then dressed with diluted Betadine soaked Kerlix covered with 4 x 4 ABD and wrapped with Kerlix and finally by Chuck bandage. This was in essence a guillotine amputation as an emergency procedure for patient gangrene causing patient's sepsis with acidosis and markedly elevated lactic acid. Patient will eventually need a more formal below-knee amputation when coagulation and sepsis has been fairly well controlled hopefully in 48 to 72 hours. Patient tolerated procedure fairly well and brought to the negative pressure and recovering room for possible extubation.
[2019-07-28 05:57] LABS: APPEARANCE,URINE SLIGHTLY-CLOUDY; BILIRUBIN,URINE NEGATIVE (NEGATIVE); COLOR,URINE YELLOW; GLUCOSE, URINE NEGATIVE (NEGATIVE); KETONES,URINE NEGATIVE (NEGATIVE); LEUKOCYTE ESTERASE,URINE NEGATIVE (NEGATIVE); NITRITE,URINE NEGATIVE (NEGATIVE); PROTEIN,URINE NEGATIVE (NEGATIVE); URINE SPECIFIC GRAVITY 1.011; UROBILINOGEN,URINE NEGATIVE mg/dL (<2.0)
[2019-07-28 06:04] LABS: ABSOLUTE LYMPHOCYTES (AUTO) 1.7 10^3/uL (0.5-4.7); ABSOLUTE MONOCYTES (AUTO) 0.3 10^3/uL (0.1-1.4); BASOPHILS % (AUTO) 0.6 % (0-2); EOSINOPHILS % (AUTO) 0.4 % (0-6); HEMATOCRIT 28.8 % (36.0-47.0); HEMOGLOBIN 9.6 g/dL (12.0-15.5); MEAN CORPUSCULAR HEMOGLOBIN 26.3 pg (27.0-33.4); MEAN CORPUSCULAR HGB CONC 33.1 g/dL (32.0-36.0); MEAN CORPUSCULAR VOLUME 80 fl (80-97); MONOCYTES % (AUTO) 4.1 % (3-13); PLATELET COUNT 197 10^3/uL (150-450); RED BLOOD COUNT 3.63 10^6/uL (3.72-5.28); RED CELL DISTRIBUTION WIDTH 17.2 % (11.5-14.0); SEGMENTED NEUTROPHILS % (AUTO) 73.9 % (42-78); TOTAL CELLS COUNTED % (AUTO) 100 %; WHITE BLOOD COUNT 8.1 10^3/uL (4.0-10.5)
[2019-07-28 06:05] LABS: VENOUS BLOOD BASE EXCESS -5.3 mmol/L; VENOUS BLOOD HCO3 20.2 mmol/L (20-32); VENOUS BLOOD PCO2 39.6 mmHg (35-63); VENOUS BLOOD PH 7.33 (7.30-7.42)
[2019-07-28 06:11] LABS: INTERNATIONAL RATION (INR) 2.83; PROTHROMBIN TIME 30.3 SEC (11.4-15.4)
[2019-07-28 06:12] LABS: PARTIAL THROMBOPLASTIN TIME 39.9 SEC (23.5-35.8)
[2019-07-28 06:24] LABS: ANION GAP 10 (5-19); BLOOD UREA NITROGEN 32 mg/dL (7-20); CALCIUM 8.3 mg/dL (8.4-10.2); CARBON DIOXIDE 19 mmol/L (22-30); CHLORIDE 107 mmol/L (98-107); GLUCOSE 140 mg/dL (75-110); POTASSIUM 4.5 mmol/L (3.6-5.0)
[2019-07-28] MEDS: NORMAL SALINE 1000 ML 1,000 ML IV PRN ×3 (06:33→23:03)
[2019-07-28] MEDS: LEVOTHYROXINE SODIUM 0.025 MG TABLET PO SCH (06:45)
[2019-07-28] MEDS: INSULIN LISPRO 100 UNIT/ML 3 ML VIAL SUBCUT SCH ×3 (08:00→16:37)
[2019-07-28] MEDS: FUROSEMIDE 20 MG TABLET PO SCH ×2 (10:00→17:41)
[2019-07-28] MEDS: DOCUSATE SODIUM 100 MG CAPSULE PO SCH ×2 (10:00→17:42)
[2019-07-28] MEDS ORDERED: LISINOPRIL 10 MG TABLET PO SCH (10:00)
[2019-07-28] MEDS: MAGNESIUM OXIDE 400 MG TABLET PO SCH (10:00)
--- NOTE | 2019-07-28 10:13 | PDOC PROGRESS REPORT ---
Subjective Progress Note for:: 07/28/19 Subjective:: Patient underwent emergency guillotine BKA as a temporary stopgap measure in light of worsening sepsis and lactic acidosis. Presently resting in bed. Reason For Visit: DM FOOT,AFIB,PVD Physical Exam Vital Signs: Temp Pulse Resp BP Pulse Ox 97.4 F 59 L 16 120/70 97 07/28/19 08:20 07/28/19 08:20 07/28/19 08:20 07/28/19 08:20 07/28/19 08:20 Intake & Output 07/27/19 07/28/19 07/29/19 06:59 06:59 06:59 Intake Total 2492 2722 288 Output Total 733 Balance 2492 1989 288 Weight 56 kg 60 kg General appearance: PRESENT: no acute distress Head exam: PRESENT: atraumatic, normocephalic Eye exam: PRESENT: EOMI Respiratory exam: PRESENT: clear to auscultation miguelito, symmetrical, unlabored Cardiovascular exam: PRESENT: +S1, +S2 GI/Abdominal exam: PRESENT: soft Rectal exam: PRESENT: deferred Skin exam: PRESENT: dry Results Laboratory Results: 07/28/19 05:48 07/28/19 05:48 07/27/19 07/27/19 07/27/19 16:20 18:20 20:01 WBC RBC Hgb Hct MCV MCH MCHC RDW Plt Count Seg Neutrophils % VBG pH 7.39 VBG pCO2 21.9 L VBG HCO3 13.0 L VBG Base Excess -10.1 Sodium 134.9 L Potassium 5.4 H Chloride 107 Carbon Dioxide 10 L* Anion Gap 18 BUN 25 H Creatinine 1.45 H Est GFR ( Amer) 43 L Glucose 101 Lactic Acid 7.6 H Calcium 8.5 Magnesium Urine Color Urine Appearance Urine pH Ur Specific [place] Urine Protein Urine Glucose (UA) Urine Ketones Urine Blood Urine Nitrite Ur Leukocyte Esterase Urine WBC (Auto) Urine RBC (Auto) Blood Type Antibody Screen 07/27/19 07/28/19 07/28/19 20:01 04:00 05:48 WBC RBC Hgb Hct MCV MCH MCHC RDW Plt Count Seg Neutrophils % VBG pH VBG pCO2 VBG HCO3 VBG Base Excess Sodium 135.8 L Potassium 4.5 Chloride 107 Carbon Dioxide 19 L Anion Gap 10 BUN 32 H Creatinine 1.54 H Est GFR ( Amer) 40 L Glucose 140 H Lactic Acid Calcium 8.3 L Magnesium 2.2 Urine Color YELLOW Urine Appearance SLIGHTLY-CLOUDY Urine pH 5.0 Ur Specific [place] 1.011 Urine Protein NEGATIVE Urine Glucose (UA) NEGATIVE Urine Ketones NEGATIVE Urine Blood MODERATE H Urine Nitrite NEGATIVE Ur Leukocyte Esterase NEGATIVE Urine WBC (Auto) 2 Urine RBC (Auto) 2 Blood Type O POSITIVE Antibody Screen NEGATIVE 07/28/19 07/28/19 07/28/19 05:48 05:48 05:53 WBC 8.1 RBC 3.63 L Hgb 9.6 L Hct 28.8 L MCV 80 MCH 26.3 L MCHC 33.1 RDW 17.2 H Plt Count 197 Seg Neutrophils % 73.9 VBG pH 7.33 VBG pCO2 39.6 VBG HCO3 20.2 VBG Base Excess -5.3 Sodium Potassium Chloride Carbon Dioxide Anion Gap BUN Creatinine Est GFR ( Amer) Glucose Lactic Acid 2.2 H Calcium Magnesium Urine Color Urine Appearance Urine pH Ur Specific [place] Urine Protein Urine Glucose (UA) Urine Ketones Urine Blood Urine Nitrite Ur Leukocyte Esterase Urine WBC (Auto) Urine RBC (Auto) Blood Type Antibody Screen Impressions: Extremity Arterial Study 07/24/19 17:43 IMPRESSION: 1. Peripheral arterial disease 2. Occluded right superficial femoral artery, distal popliteal artery, peroneal artery, and mid posterior tibial artery. Collaterals are identified. 3. Markedly diminished flow in the right anterior tibial and dorsalis pedis arteries Foot X-Ray 07/24/19 17:43 IMPRESSION: No evidence of osteomyelitis. Tibia/Fibula X-Ray 07/24/19 18:04 IMPRESSION: No evidence of osteomyelitis. Assessment & Plan - Diagnosis (1) Atrial fibrillation Qualifiers: Atrial fibrillation type: paroxysmal Qualified Code(s): I48.0 - Paroxysmal atrial fibrillation Is this a current diagnosis for this admission?: Yes Plan: Rate control strategy Systemic anticoagulation to be interrupted in anticipation of right BKA. Would resume as soon as feasible given increased stroke risk (2) Diabetes Is this a current diagnosis for this admission?: Yes (3) Gangrene of right foot Is this a current diagnosis for this admission?: Yes Plan: Status post emergency guillotine amputation This was in light of worsening sepsis and lactic acidosis. Patient may need formal amputation later repair surgery (4) Cardiomyopathy Qualifiers: Cardiomyopathy type: ischemic Qualified Code(s): I25.5 - Ischemic cardiomyopathy Is this a current diagnosis for this admission?: Yes Plan: Appears to be compensated Continue to watch volume status. Continue medications for cardiomyopathy as feasible.
--- NOTE | 2019-07-28 11:16 | PDOC PROGRESS REPORT ---
Subjective Progress Note for:: 07/28/19 Reason For Visit: DM FOOT,AFIB,PVD Physical Exam Vital Signs: Temp Pulse Resp BP Pulse Ox 97.4 F 59 L 16 120/70 97 07/28/19 08:20 07/28/19 08:20 07/28/19 08:20 07/28/19 08:20 07/28/19 08:20 Intake & Output 07/27/19 07/28/19 07/29/19 06:59 06:59 06:59 Intake Total 2492 2722 288 Output Total 733 Balance 2491988 288 Weight 56 kg 60 kg Results Laboratory Results: 07/28/19 05:48 07/28/19 05:48 07/27/19 07/27/19 07/27/19 16:20 18:20 20:01 WBC RBC Hgb Hct MCV MCH MCHC RDW Plt Count Seg Neutrophils % VBG pH 7.39 VBG pCO2 21.9 L VBG HCO3 13.0 L VBG Base Excess -10.1 Sodium 134.9 L Potassium 5.4 H Chloride 107 Carbon Dioxide 10 L* Anion Gap 18 BUN 25 H Creatinine 1.45 H Est GFR ( Amer) 43 L Glucose 101 Lactic Acid 7.6 H Calcium 8.5 Magnesium Urine Color Urine Appearance Urine pH Ur Specific [place] Urine Protein Urine Glucose (UA) Urine Ketones Urine Blood Urine Nitrite Ur Leukocyte Esterase Urine WBC (Auto) Urine RBC (Auto) Blood Type Antibody Screen 07/27/19 07/28/19 07/28/19 20:01 04:00 05:48 WBC RBC Hgb Hct MCV MCH MCHC RDW Plt Count Seg Neutrophils % VBG pH VBG pCO2 VBG HCO3 VBG Base Excess Sodium 135.8 L Potassium 4.5 Chloride 107 Carbon Dioxide 19 L Anion Gap 10 BUN 32 H Creatinine 1.54 H Est GFR ( Amer) 40 L Glucose 140 H Lactic Acid Calcium 8.3 L Magnesium 2.2 Urine Color YELLOW Urine Appearance SLIGHTLY-CLOUDY Urine pH 5.0 Ur Specific [place] 1.011 Urine Protein NEGATIVE Urine Glucose (UA) NEGATIVE Urine Ketones NEGATIVE Urine Blood MODERATE H Urine Nitrite NEGATIVE Ur Leukocyte Esterase NEGATIVE Urine WBC (Auto) 2 Urine RBC (Auto) 2 Blood Type O POSITIVE Antibody Screen NEGATIVE 07/28/19 07/28/19 07/28/19 05:48 05:48 05:53 WBC 8.1 RBC 3.63 L Hgb 9.6 L Hct 28.8 L MCV 80 MCH 26.3 L MCHC 33.1 RDW 17.2 H Plt Count 197 Seg Neutrophils % 73.9 VBG pH 7.33 VBG pCO2 39.6 VBG HCO3 20.2 VBG Base Excess -5.3 Sodium Potassium Chloride Carbon Dioxide Anion Gap BUN Creatinine Est GFR ( Amer) Glucose Lactic Acid 2.2 H Calcium Magnesium Urine Color Urine Appearance Urine pH Ur Specific [place] Urine Protein Urine Glucose (UA) Urine Ketones Urine Blood Urine Nitrite Ur Leukocyte Esterase Urine WBC (Auto) Urine RBC (Auto) Blood Type Antibody Screen Impressions: Extremity Arterial Study 07/24/19 17:43 IMPRESSION: 1. Peripheral arterial disease 2. Occluded right superficial femoral artery, distal popliteal artery, peroneal artery, and mid posterior tibial artery. Collaterals are identified. 3. Markedly diminished flow in the right anterior tibial and dorsalis pedis arteries Foot X-Ray 07/24/19 17:43 IMPRESSION: No evidence of osteomyelitis. Tibia/Fibula X-Ray 07/24/19 18:04 IMPRESSION: No evidence of osteomyelitis. 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 The patient began to display signs of systemic sepsis, therefore a guillotine amputation of the right foot was performed. The patient's leukocytosis is resolving. Her lactic acidosis is improving. She is sleepy today, however the nurse says this is similar to her mentation yesterday. Continue to treat the patient's sepsis. We will plan for formalization of her right below-knee amputation after her INR and overall clinical status has improved. Surgery will continue to follow.
--- NOTE | 2019-07-28 17:25 | PDOC PROGRESS REPORT ---
Subjective Progress Note for:: 07/28/19 Subjective:: She was admitted for a gangrenous leg and surgery was being held because her INR was too high due to anticoagulation. Her anticoagulation was held, but despite waiting a couple of days her INR did not trend down. Unfortunately, she began to show signs of decompensation with worsening renal failure and worsening lactic acidosis and so she was taken for an emergency amputation. She had the amputation last night, and this morning her lactic acid is better. Her vital signs are all stable at this time. She is still little bit encephalopathic which is primarily manifesting as drowsiness. Reason For Visit: DM FOOT,AFIB,PVD Physical Exam Vital Signs: Temp Pulse Resp BP Pulse Ox 97.6 F 68 18 105/65 91 L 07/28/19 15:01 07/28/19 15:01 07/28/19 15:01 07/28/19 15:01 07/28/19 15:01 Intake & Output 07/27/19 07/28/19 07/29/19 06:59 06:59 06:59 Intake Total 2492 2722 1664 Output Total 733 1000 Balance 2492 1989 664 Weight 56 kg 60 kg General appearance: PRESENT: no acute distress, cooperative, other - Drowsy but arousable Respiratory exam: PRESENT: clear to auscultation miguelito, symmetrical, unlabored. ABSENT: accessory muscle use, chest wall tenderness, crackles, rhonchi, ta chypnea, wheezes Cardiovascular exam: PRESENT: RRR, +S1, +S2 Pulses: PRESENT: normal carotid pulses GI/Abdominal exam: PRESENT: normal bowel sounds, soft. ABSENT: distended, guarding, rebound, tenderness Extremities exam: PRESENT: other - Right lower extremity below the knee stump is wrapped in a heavy bandage Neurological exam: PRESENT: awake - Drowsy but arousable, oriented to person Psychiatric exam: PRESENT: flat affect Results Laboratory Results: 07/28/19 05:48 07/28/19 05:48 07/27/19 07/27/19 07/27/19 16:20 18:20 20:01 WBC RBC Hgb Hct MCV MCH MCHC RDW Plt Count Seg Neutrophils % VBG pH 7.39 VBG pCO2 21.9 L VBG HCO3 13.0 L VBG Base Excess -10.1 Sodium 134.9 L Potassium 5.4 H Chloride 107 Carbon Dioxide 10 L* Anion Gap 18 BUN 25 H Creatinine 1.45 H Est GFR ( Amer) 43 L Glucose 101 Lactic Acid 7.6 H Calcium 8.5 Magnesium Urine Color Urine Appearance Urine pH Ur Specific [place] Urine Protein Urine Glucose (UA) Urine Ketones Urine Blood Urine Nitrite Ur Leukocyte Esterase Urine WBC (Auto) Urine RBC (Auto) Blood Type Antibody Screen 07/27/19 07/28/19 07/28/19 20:01 04:00 05:48 WBC RBC Hgb Hct MCV MCH MCHC RDW Plt Count Seg Neutrophils % VBG pH VBG pCO2 VBG HCO3 VBG Base Excess Sodium 135.8 L Potassium 4.5 Chloride 107 Carbon Dioxide 19 L Anion Gap 10 BUN 32 H Creatinine 1.54 H Est GFR ( Amer) 40 L Glucose 140 H Lactic Acid Calcium 8.3 L Magnesium 2.2 Urine Color YELLOW Urine Appearance SLIGHTLY-CLOUDY Urine pH 5.0 Ur Specific [place] 1.011 Urine Protein NEGATIVE Urine Glucose (UA) NEGATIVE Urine Ketones NEGATIVE Urine Blood MODERATE H Urine Nitrite NEGATIVE Ur Leukocyte Esterase NEGATIVE Urine WBC (Auto) 2 Urine RBC (Auto) 2 Blood Type O POSITIVE Antibody Screen NEGATIVE 07/28/19 07/28/19 07/28/19 05:48 05:48 05:53 WBC 8.1 RBC 3.63 L Hgb 9.6 L Hct 28.8 L MCV 80 MCH 26.3 L MCHC 33.1 RDW 17.2 H Plt Count 197 Seg Neutrophils % 73.9 VBG pH 7.33 VBG pCO2 39.6 VBG HCO3 20.2 VBG Base Excess -5.3 Sodium Potassium Chloride Carbon Dioxide Anion Gap BUN Creatinine Est GFR ( Amer) Glucose Lactic Acid 2.2 H Calcium Magnesium Urine Color Urine Appearance Urine pH Ur Specific [place] Urine Protein Urine Glucose (UA) Urine Ketones Urine Blood Urine Nitrite Ur Leukocyte Esterase Urine WBC (Auto) Urine RBC (Auto) Blood Type Antibody Screen Impressions: Extremity Arterial Study 07/24/19 17:43 IMPRESSION: 1. Peripheral arterial disease 2. Occluded right superficial femoral artery, distal popliteal artery, peroneal artery, and mid posterior tibial artery. Collaterals are identified. 3. Markedly diminished flow in the right anterior tibial and dorsalis pedis arteries Foot X-Ray 07/24/19 17:43 IMPRESSION: No evidence of osteomyelitis. Tibia/Fibula X-Ray 07/24/19 18:04 IMPRESSION: No evidence of osteomyelitis. Assessment and Plan - Diagnosis (1) Cardiomyopathy Qualifiers: Cardiomyopathy type: ischemic Qualified Code(s): I25.5 - Ischemic cardiomyopathy Is this a current diagnosis for this admission?: Yes Plan: Not acutely exacerbated, will watch her closely for signs of decompensation, cardiology is been consulted, will continue with medical optimization and will arrange for outpatient follow-up. (2) Chronic atrial fibrillation, unspecified Is this a current diagnosis for this admission?: Yes Plan: Currently rate controlled. Anticoagulation held for now. When she is a little bit more stable she is going to go for a more definitive amputation. We will resume anticoagulation when safe and feasible to do so. (3) Diabetes Qualifiers: Diabetes mellitus type: type 2 Diabetes mellitus half-way insulin use: without intermediate accountant use Diabetes mellitus complication status: with circulatory complication Diabetes mellitus complication detail: with peripheral angiopathy with gangrene Qualified Code(s): E11.52 - Type 2 diabetes mellitus with diabetic peripheral angiopathy with gangrene Is this a current diagnosis for this admission?: Yes Plan: We will make sure she is medically optimized and has outpatient follow-up (4) Gangrene of right foot Is this a current diagnosis for this admission?: Yes Plan: Status post emergency amputation last night, will need a more definitive amputation in 48 to 72 hours as long as she is medically stable. - Time Time Spent with patient: 15-24 minutes
[2019-07-28] MEDS: INSULIN GLARGINE,HUM.REC.ANLOG 1,000 UNIT/10 ML VIAL SUBCUT SCH (22:37)
[2019-07-29 05:06] LABS: INTERNATIONAL RATION (INR) 2.21; PROTHROMBIN TIME 24.9 SEC (11.4-15.4)
[2019-07-29] MEDS: PIPERACILLIN SODIUM/TAZOBACTAM 2.25 GM in NORMAL SALINE 50 ML IV SCH ×4 (05:28→23:06)
[2019-07-29] MEDS: LEVOTHYROXINE SODIUM 0.025 MG TABLET PO SCH (05:29)
[2019-07-29] MEDS: METOPROLOL SUCCINATE 25 MG TAB.SR.24H PO SCH ×2 (09:34→21:25)
[2019-07-29] MEDS: DOCUSATE SODIUM 100 MG CAPSULE PO SCH ×2 (09:34→17:42)
[2019-07-29] MEDS: MAGNESIUM OXIDE 400 MG TABLET PO SCH (09:34)
[2019-07-29] MEDS: INSULIN LISPRO 100 UNIT/ML 3 ML VIAL SUBCUT SCH ×3 (09:34→17:39)
[2019-07-29] MEDS: NORMAL SALINE 1000 ML 1,000 ML IV PRN ×2 (09:35→19:39)
--- NOTE | 2019-07-29 10:52 | PDOC PROGRESS REPORT ---
Subjective Progress Note for:: 07/29/19 Subjective:: Patient underwent emergency guillotine BKA as a temporary stopgap measure in light of worsening sepsis and lactic acidosis. This morning resting in bed. Having breakfast. Denies complaints. Reason For Visit: DM FOOT,AFIB,PVD Physical Exam Vital Signs: Temp Pulse Resp BP Pulse Ox 97.4 F 63 18 107/57 L 100 07/29/19 07:37 07/29/19 07:37 07/29/19 07:37 07/29/19 07:37 07/29/19 07:37 Intake & Output 07/28/19 07/29/19 07/30/19 06:59 06:59 06:59 Intake Total 2722 2921 1000 Output Total 733 2380 Balance 9418 474 6991 Weight 60 kg 58.6 kg General appearance: PRESENT: no acute distress, cooperative, thin Head exam: PRESENT: atraumatic, normocephalic Eye exam: PRESENT: conjunctiva pale, EOMI Mouth exam: PRESENT: moist Respiratory exam: PRESENT: clear to auscultation miguelito, symmetrical, unlabored Cardiovascular exam: PRESENT: RRR, +S1, +S2 Pulses: PRESENT: normal radial pulses GI/Abdominal exam: PRESENT: soft Rectal exam: PRESENT: deferred Musculoskeletal exam: PRESENT: deformity Neurological exam: PRESENT: alert, awake, oriented to person Psychiatric exam: PRESENT: appropriate affect Skin exam: PRESENT: dry, intact Results Laboratory Results: 07/28/19 05:48 07/28/19 05:48 Impressions: Extremity Arterial Study 07/24/19 17:43 IMPRESSION: 1. Peripheral arterial disease 2. Occluded right superficial femoral artery, distal popliteal artery, peroneal artery, and mid posterior tibial artery. Collaterals are identified. 3. Markedly diminished flow in the right anterior tibial and dorsalis pedis arteries Foot X-Ray 07/24/19 17:43 IMPRESSION: No evidence of osteomyelitis. Tibia/Fibula X-Ray 07/24/19 18:04 IMPRESSION: No evidence of osteomyelitis. Assessment & Plan - Diagnosis (1) Atrial fibrillation Qualifiers: Atrial fibrillation type: paroxysmal Qualified Code(s): I48.0 - Paroxysmal atrial fibrillation Is this a current diagnosis for this admission?: Yes Plan: Rate control strategy Systemic anticoagulation has been interrupted in anticipation of right BKA. There are plans for stump revision/formal surgery for infected right lower extremity. We will resume anticoagulation when surgical procedures are completed (2) Diabetes Qualifiers: Diabetes mellitus type: type 2 Diabetes mellitus usp insulin use: without terminal computer operator use Diabetes mellitus complication status: with circulatory complication Diabetes mellitus complication detail: with peripheral angiopathy with gangrene Qualified Code(s): E11.52 - Type 2 diabetes mellitus with diabetic peripheral angiopathy with gangrene Is this a current diagnosis for this admission?: Yes Plan: This is being managed (3) Gangrene of right foot Is this a current diagnosis for this admission?: Yes Plan: Status post emergency guillotine amputation This was in light of worsening sepsis and lactic acidosis. Further surgery is anticipated. Holding off on systemic anticoagulation Clinically much improved (4) Cardiomyopathy Qualifiers: Cardiomyopathy type: ischemic Qualified Code(s): I25.5 - Ischemic cardiomyopathy Is this a current diagnosis for this admission?: Yes Plan: Appears to be compensated Continue to watch volume status. Continue medications for cardiomyopathy as feasible.
--- NOTE | 2019-07-29 14:37 | PDOC PROGRESS REPORT ---
Subjective Progress Note for:: 07/29/19 Subjective:: No adverse events overnight. Vital signs improved. She is more awake and interactive today. She is not sure what happened to her leg but she knows that it is not there anymore. Reason For Visit: DM FOOT,AFIB,PVD Physical Exam Vital Signs: Temp Pulse Resp BP Pulse Ox 97.7 F 71 18 122/75 100 07/29/19 11:15 07/29/19 11:15 07/29/19 11:15 07/29/19 11:15 07/29/19 11:15 Intake & Output 07/28/19 07/29/19 07/30/19 06:59 06:59 06:59 Intake Total 2722 2921 1016 Output Total 733 2380 Balance 7347 506 2095 Weight 60 kg 58.6 kg General appearance: PRESENT: no acute distress, cooperative, Respiratory exam: PRESENT: clear to auscultation miguelito, symmetrical, unlabored. ABSENT: accessory muscle use, chest wall tenderness, crackles, rhonchi, tachypnea, wheezes Cardiovascular exam: PRESENT: RRR, +S1, +S2 Pulses: PRESENT: normal carotid pulses GI/Abdominal exam: PRESENT: normal bowel sounds, soft. ABSENT: distended, guarding, rebound, tenderness Extremities exam: PRESENT: other - Right lower extremity below the knee stump is wrapped in a heavy bandage Neurological exam: PRESENT: awake, oriented to person Psychiatric exam: PRESENT: flat affect Results Laboratory Results: 07/28/19 05:48 07/28/19 05:48 Impressions: Extremity Arterial Study 07/24/19 17:43 IMPRESSION: 1. Peripheral arterial disease 2. Occluded right superficial femoral artery, distal popliteal artery, peroneal artery, and mid posterior tibial artery. Collaterals are identified. 3. Markedly diminished flow in the right anterior tibial and dorsalis pedis arteries Foot X-Ray 07/24/19 17:43 IMPRESSION: No evidence of osteomyelitis. Tibia/Fibula X-Ray 07/24/19 18:04 IMPRESSION: No evidence of osteomyelitis. Assessment and Plan - Diagnosis (1) Cardiomyopathy Qualifiers: Cardiomyopathy type: ischemic Qualified Code(s): I25.5 - Ischemic cardiomyopathy Is this a current diagnosis for this admission?: Yes Plan: Not acutely exacerbated, will watch her closely for signs of decompensation, cardiology is been consulted, will continue with medical optimization and will arrange for outpatient follow-up. (2) Chronic atrial fibrillation, unspecified Is this a current diagnosis for this admission?: Yes Plan: Currently rate controlled and in sinus rhythm. Anticoagulation held for now. When she is a little bit more stable she is going to go for a more definitive amputation. We will resume anticoagulation when safe and feasible to do so. (3) Diabetes Qualifiers: Diabetes mellitus type: type 2 Diabetes mellitus termite exterminator helper insulin use: without termite exterminator helper use Diabetes mellitus complication status: with circulatory complication Diabetes mellitus complication detail: with peripheral angiopathy with gangrene Qualified Code(s): E11.52 - Type 2 diabetes mellitus with diabetic peripheral angiopathy with gangrene Is this a current diagnosis for this admission?: Yes Plan: We will make sure she is medically optimized and has outpatient follow-up (4) Gangrene of right foot Is this a current diagnosis for this admission?: Yes Plan: Status post emergency guillotine amputation of the right lower extremity proximal to the ankle. Her INR is trending down. Her lactate is improved. Following up on her labs to watch the trend her creatinine. She overall looks better. She will need more definitive procedure to create a stump once her INR is down a little bit more and we are sure that she is stable. - Time Time Spent with patient: 15-24 minutes
--- NOTE | 2019-07-29 20:06 | PDOC PROGRESS REPORT ---
Subjective Progress Note for:: 07/29/19 Subjective:: No pains no complaints She is more alert this morning on her postop day 1 and a half Reason For Visit: DM FOOT,AFIB,PVD Physical Exam Vital Signs: Temp Pulse Resp BP Pulse Ox 97.6 F 73 16 135/70 H 100 07/29/19 15:04 07/29/19 15:04 07/29/19 15:04 07/29/19 15:04 07/29/19 15:04 Intake & Output 07/28/19 07/29/19 07/30/19 06:59 06:59 06:59 Intake Total 2722 2921 2547 Output Total 733 2380 500 Balance 5765 374 8884 Weight 60 kg 58.6 kg Exam: Right guillotine amputation stump has dry dressings. Minimal swelling along the right lower leg. Results Laboratory Results: 07/28/19 05:48 07/28/19 05:48 Impressions: Extremity Arterial Study 07/24/19 17:43 IMPRESSION: 1. Peripheral arterial disease 2. Occluded right superficial femoral artery, distal popliteal artery, peroneal artery, and mid posterior tibial artery. Collaterals are identified. 3. Markedly diminished flow in the right anterior tibial and dorsalis pedis arteries Foot X-Ray 07/24/19 17:43 IMPRESSION: No evidence of osteomyelitis. Tibia/Fibula X-Ray 07/24/19 18:04 IMPRESSION: No evidence of osteomyelitis. Assessment & Plan - Diagnosis (1) Atrial fibrillation Qualifiers: Atrial fibrillation type: paroxysmal Qualified Code(s): I48.0 - Paroxysmal atrial fibrillation Is this a current diagnosis for this admission?: Yes (2) Cardiomyopathy Qualifiers: Cardiomyopathy type: ischemic Qualified Code(s): I25.5 - Ischemic cardiomyopathy Is this a current diagnosis for this admission?: Yes (3) Dementia Qualifiers: Dementia type: unspecified type Dementia behavioral disturbance: without behavioral disturbance Qualified Code(s): F03.90 - Unspecified dementia without behavioral disturbance Is this a current diagnosis for this admission?: Yes (4) Diabetes Qualifiers: Diabetes mellitus type: type 2 Diabetes mellitus senior living insulin use: without equipment operator intermodal yard use Diabetes mellitus complication status: with circulatory complication Diabetes mellitus complication detail: with peripheral angiopathy with gangrene Qualified Code(s): E11.52 - Type 2 diabetes mellitus with diabetic peripheral angiopathy with gangrene Is this a current diagnosis for this admission?: Yes (5) Dry gangrene Is this a current diagnosis for this admission?: Yes (6) Gangrene of right foot Is this a current diagnosis for this admission?: Yes (7) Peripheral vascular disease in diabetes mellitus Is this a current diagnosis for this admission?: Yes - Time Critical Time spent with patient: 15-24 minutes - Inpatient Certification Medical Necessity: Need for IV Antibiotics, Need for Surgery - Plan Summary Plan Summary: Patient had emergent right ankle guillotine amputation 36 hours ago for developing sepsis. Today her labs are much improved and her vital signs remained stable. Her INR still elevated to about 2.8. Plans: We will need more formal right BKA amputation when medically cleared for surgery and her coags are more reasonable so she can tolerate spinal anesthesia
[2019-07-29] MEDS: INSULIN GLARGINE,HUM.REC.ANLOG 1,000 UNIT/10 ML VIAL SUBCUT SCH (21:25)
[2019-07-30 05:06] LABS: APPEARANCE,URINE CLEAR; BILIRUBIN,URINE NEGATIVE (NEGATIVE); COLOR,URINE YELLOW; GLUCOSE, URINE NEGATIVE (NEGATIVE); KETONES,URINE NEGATIVE (NEGATIVE); LEUKOCYTE ESTERASE,URINE NEGATIVE (NEGATIVE); NITRITE,URINE NEGATIVE (NEGATIVE); PROTEIN,URINE NEGATIVE (NEGATIVE); URINE SPECIFIC GRAVITY 1.018; UROBILINOGEN,URINE NEGATIVE mg/dL (<2.0)
[2019-07-30] MEDS: PIPERACILLIN SODIUM/TAZOBACTAM 2.25 GM in NORMAL SALINE 50 ML IV SCH ×4 (05:19→23:35)
[2019-07-30] MEDS: LEVOTHYROXINE SODIUM 0.025 MG TABLET PO SCH (05:19)
[2019-07-30] MEDS: NORMAL SALINE 1000 ML 1,000 ML IV PRN ×2 (05:19→17:59)
[2019-07-30] MEDS: ACETAMINOPHEN 325 MG TABLET PO PRN ×2 (05:19→16:22)
[2019-07-30 06:09] LABS: HEMATOCRIT 31.4 % (36.0-47.0); HEMOGLOBIN 10.5 g/dL (12.0-15.5); INTERNATIONAL RATION (INR) 1.51; MEAN CORPUSCULAR HEMOGLOBIN 26.5 pg (27.0-33.4); MEAN CORPUSCULAR HGB CONC 33.4 g/dL (32.0-36.0); MEAN CORPUSCULAR VOLUME 80 fl (80-97); PLATELET COUNT 248 10^3/uL (150-450); PROTHROMBIN TIME 18.4 SEC (11.4-15.4); RED BLOOD COUNT 3.95 10^6/uL (3.72-5.28); RED CELL DISTRIBUTION WIDTH 16.9 % (11.5-14.0); WHITE BLOOD COUNT 9.2 10^3/uL (4.0-10.5)
[2019-07-30 06:22] LABS: ANION GAP 5 (5-19); BLOOD UREA NITROGEN 21 mg/dL (7-20); CALCIUM 7.8 mg/dL (8.4-10.2); CARBON DIOXIDE 19 mmol/L (22-30); CHLORIDE 115 mmol/L (98-107); GLUCOSE 129 mg/dL (75-110)
[2019-07-30] MEDS: INSULIN LISPRO 100 UNIT/ML 3 ML VIAL SUBCUT SCH ×3 (08:06→16:38)
[2019-07-30] MEDS ORDERED: GLUCAGON,HUMAN RECOMB 1 MG INJ SUBCUT PRN (08:46)
[2019-07-30] MEDS ORDERED: DEXTROSE 50%-WATER 25 GM/50 ML DISP.SYRIN IV PRN ×2 (08:46)
[2019-07-30] MEDS ORDERED: DEXTROSE 40% GEL 15 GM TUBE PO PRN ×2 (08:46)
[2019-07-30] MEDS: DOCUSATE SODIUM 100 MG CAPSULE PO SCH ×2 (10:00→18:00)
[2019-07-30] MEDS: METOPROLOL SUCCINATE 25 MG TAB.SR.24H PO SCH ×2 (10:00→22:16)
[2019-07-30] MEDS: MAGNESIUM OXIDE 400 MG TABLET PO SCH (10:00)
--- NOTE | 2019-07-30 10:41 | PDOC PROGRESS REPORT ---
Subjective Progress Note for:: 07/30/19 Subjective:: Still denies any pains. Reason For Visit: DM FOOT,AFIB,PVD Physical Exam Vital Signs: Temp Pulse Resp BP Pulse Ox 98.0 F 73 17 146/84 H 100 07/30/19 07:39 07/30/19 07:39 07/30/19 07:39 07/30/19 07:39 07/30/19 07:39 Intake & Output 07/29/19 07/30/19 07/31/19 06:59 06:59 06:59 Intake Total 2921 4293 Output Total 2380 1400 Balance 541 2893 Weight 58.6 kg 59.8 kg Exam: Right lower leg much less edematous. Dressing intact. Results Laboratory Results: 07/30/19 05:04 07/30/19 05:06 07/30/19 07/30/19 07/30/19 04:49 05:04 05:06 WBC 9.2 RBC 3.95 Hgb 10.5 L Hct 31.4 L MCV 80 MCH 26.5 L MCHC 33.4 RDW 16.9 H Plt Count 248 Sodium 139.2 Potassium 4.0 Chloride 115 H Carbon Dioxide 19 L Anion Gap 5 BUN 21 H Creatinine 0.91 Est GFR ( Amer) > 60 Glucose 129 H Calcium 7.8 L Urine Color YELLOW Urine Appearance CLEAR Urine pH 5.0 Ur Specific [place] 1.018 Urine Protein NEGATIVE Urine Glucose (UA) NEGATIVE Urine Ketones NEGATIVE Urine Blood MODERATE H Urine Nitrite NEGATIVE Ur Leukocyte Esterase NEGATIVE Urine WBC (Auto) 3 Urine RBC (Auto) 26 07/25/19 05:40 Blood Blood Culture - Final NO GROWTH IN 5 DAYS 07/24/19 18:11 Blood Blood Culture - Final NO GROWTH IN 5 DAYS Impressions: Extremity Arterial Study 07/24/19 17:43 IMPRESSION: 1. Peripheral arterial disease 2. Occluded right superficial femoral artery, distal popliteal artery, peroneal artery, and mid posterior tibial artery. Collaterals are identified. 3. Markedly diminished flow in the right anterior tibial and dorsalis pedis arteries Foot X-Ray 07/24/19 17:43 IMPRESSION: No evidence of osteomyelitis. Tibia/Fibula X-Ray 07/24/19 18:04 IMPRESSION: No evidence of osteomyelitis. Assessment & Plan - Diagnosis (1) Atrial fibrillation Qualifiers: Atrial fibrillation type: paroxysmal Qualified Code(s): I48.0 - Paroxysmal atrial fibrillation Is this a current diagnosis for this admission?: Yes (2) Cardiomyopathy Qualifiers: Cardiomyopathy type: ischemic Qualified Code(s): I25.5 - Ischemic cardiomyopathy Is this a current diagnosis for this admission?: Yes (3) Dementia Qualifiers: Dementia type: unspecified type Dementia behavioral disturbance: without behavioral disturbance Qualified Code(s): F03.90 - Unspecified dementia without behavioral disturbance Is this a current diagnosis for this admission?: Yes (4) Diabetes Qualifiers: Diabetes mellitus type: type 2 Diabetes mellitus residential insulin use: without residential use Diabetes mellitus complication status: with circulatory complication Diabetes mellitus complication detail: with peripheral angiopathy with gangrene Qualified Code(s): E11.52 - Type 2 diabetes mellitus with diabetic peripheral angiopathy with gangrene Is this a current diagnosis for this admission?: Yes (5) Dry gangrene Is this a current diagnosis for this admission?: Yes (6) Gangrene of right foot Is this a current diagnosis for this admission?: Yes (7) Peripheral vascular disease in diabetes mellitus Is this a current diagnosis for this admission?: Yes - Time Critical Time spent with patient: 15-24 minutes - Inpatient Certification Medical Necessity: Need for IV Antibiotics, Need for Surgery - Plan Summary Plan Summary: 68-year-old female post guillotine amputation right ankle for gangrene of the right toes done as an emergency late 07/1419. She was acidotic and INR 3.9 at that time. Today all of her laboratory numbers are normalizing. Her INR this morning was 1.5. The plan is for possible formal right below-knee amputation tomorrow under spinal anesthesia for cardiac ejection fraction low at 20 to 25%. We will recheck coagulation parameters in a.m. and plan on doing the surgery tomorrow by Dr. Hernandez
--- NOTE | 2019-07-30 16:18 | PDOC PROGRESS REPORT ---
Subjective Progress Note for:: 07/30/19 Subjective:: No adverse events overnight. Vital signs stable. Eating and drinking without difficulty. No fevers. Reason For Visit: DM FOOT,AFIB,PVD Physical Exam Vital Signs: Temp Pulse Resp BP Pulse Ox 98.0 F 65 16 114/91 H 100 07/30/19 15:29 07/30/19 15:29 07/30/19 15:29 07/30/19 15:29 07/30/19 15:29 Intake & Output 07/29/19 07/30/19 07/31/19 06:59 06:59 06:59 Intake Total 2921 4293 115 Output Total 2380 1400 Balance 541 2893 115 Weight 58.6 kg 59.8 kg General appearance: PRESENT: no acute distress, cooperative, Respiratory exam: PRESENT: clear to auscultation miguelito, symmetrical, unlabored. ABSENT: accessory muscle use, chest wall tenderness, crackles, rhonchi, tachypnea, wheezes Cardiovascular exam: PRESENT: RRR, +S1, +S2 Pulses: PRESENT: normal carotid pulses GI/Abdominal exam: PRESENT: normal bowel sounds, soft. ABSENT: distended, guarding, rebound, tenderness Extremities exam: PRESENT: other - Right lower extremity below the knee stump is wrapped in a heavy bandage Neurological exam: PRESENT: awake, oriented to person Psychiatric exam: PRESENT: flat affect Results Laboratory Results: 07/30/19 05:04 07/30/19 05:06 07/30/19 07/30/19 07/30/19 04:49 05:04 05:06 WBC 9.2 RBC 3.95 Hgb 10.5 L Hct 31.4 L MCV 80 MCH 26.5 L MCHC 33.4 RDW 16.9 H Plt Count 248 Sodium 139.2 Potassium 4.0 Chloride 115 H Carbon Dioxide 19 L Anion Gap 5 BUN 21 H Creatinine 0.91 Est GFR ( Amer) > 60 Glucose 129 H Calcium 7.8 L Urine Color YELLOW Urine Appearance CLEAR Urine pH 5.0 Ur Specific [place] 1.018 Urine Protein NEGATIVE Urine Glucose (UA) NEGATIVE Urine Ketones NEGATIVE Urine Blood MODERATE H Urine Nitrite NEGATIVE Ur Leukocyte Esterase NEGATIVE Urine WBC (Auto) 3 Urine RBC (Auto) 26 07/25/19 05:40 Blood Blood Culture - Final NO GROWTH IN 5 DAYS 07/24/19 18:11 Blood Blood Culture - Final NO GROWTH IN 5 DAYS Impressions: Extremity Arterial Study 07/24/19 17:43 IMPRESSION: 1. Peripheral arterial disease 2. Occluded right superficial femoral artery, distal popliteal artery, peroneal artery, and mid posterior tibial artery. Collaterals are identified. 3. Markedly diminished flow in the right anterior tibial and dorsalis pedis arteries Foot X-Ray 07/24/19 17:43 IMPRESSION: No evidence of osteomyelitis. Tibia/Fibula X-Ray 07/24/19 18:04 IMPRESSION: No evidence of osteomyelitis. Assessment and Plan - Diagnosis (1) Cardiomyopathy Qualifiers: Cardiomyopathy type: ischemic Qualified Code(s): I25.5 - Ischemic cardiom yopathy Is this a current diagnosis for this admission?: Yes Plan: Not acutely exacerbated, will watch her closely for signs of decompensation, cardiology is been consulted, will continue with medical optimization and will arrange for outpatient follow-up. (2) Chronic atrial fibrillation, unspecified Is this a current diagnosis for this admission?: Yes Plan: Currently rate controlled and in sinus rhythm. Anticoagulation held for now. When she is a little bit more stable she is going to go for a more definitive amputation. We will resume anticoagulation when safe and feasible to do so. (3) Diabetes Qualifiers: Diabetes mellitus type: type 2 Diabetes mellitus rodent exterminator insulin use: without senior care use Diabetes mellitus complication status: with circulatory complication Diabetes mellitus complication detail: with peripheral angiopathy with gangrene Qualified Code(s): E11.52 - Type 2 diabetes mellitus with d iabetic peripheral angiopathy with gangrene Is this a current diagnosis for this admission?: Yes Plan: We will make sure she is medically optimized and has outpatient follow-up (4) Gangrene of right foot Is this a current diagnosis for this admission?: Yes Plan: Status post emergency guillotine amputation of the right lower extremity proximal to the ankle. Her INR is trending down. Her lactate is improved. Following up on her labs to watch the trend her creatinine. She overall looks better. She is scheduled to go to the OR tomorrow for definitive treatment to create a permanent stump. - Time Time Spent with patient: 15-24 minutes
[2019-07-30] MEDS: INSULIN GLARGINE,HUM.REC.ANLOG 1,000 UNIT/10 ML VIAL SUBCUT SCH (22:33)
[2019-07-31] MEDS: NORMAL SALINE 1000 ML 1,000 ML IV PRN ×2 (04:18→17:08)
[2019-07-31 05:10] LABS: INTERNATIONAL RATION (INR) 1.52; PROTHROMBIN TIME 18.5 SEC (11.4-15.4)
[2019-07-31 05:11] LABS: PARTIAL THROMBOPLASTIN TIME 39.3 SEC (23.5-35.8)
[2019-07-31] MEDS: LEVOTHYROXINE SODIUM 0.025 MG TABLET PO SCH (05:14)
[2019-07-31] MEDS: PIPERACILLIN SODIUM/TAZOBACTAM 2.25 GM in NORMAL SALINE 50 ML IV SCH ×4 (05:14→23:38)
[2019-07-31 05:26] LABS: ANION GAP 6 (5-19); BLOOD UREA NITROGEN 15 mg/dL (7-20); CARBON DIOXIDE 18 mmol/L (22-30); CHLORIDE 115 mmol/L (98-107); GLUCOSE 70 mg/dL (75-110); POTASSIUM 4.1 mmol/L (3.6-5.0)
[2019-07-31] MEDS ORDERED: NORMAL SALINE 250 ML IV PRN (07:00)
[2019-07-31] MEDS: INSULIN LISPRO 100 UNIT/ML 3 ML VIAL SUBCUT SCH ×3 (07:42→15:50)
[2019-07-31] MEDS: MAGNESIUM OXIDE 400 MG TABLET PO SCH (09:14)
[2019-07-31] MEDS: DOCUSATE SODIUM 100 MG CAPSULE PO SCH ×2 (09:14→17:09)
[2019-07-31] MEDS: METOPROLOL SUCCINATE 25 MG TAB.SR.24H PO SCH ×2 (09:46→21:19)
[2019-07-31] MEDS ORDERED: FENTANYL CITRATE INJ/PF 100 MCG/2 ML AMPUL ONE (10:42)
[2019-07-31] MEDS ORDERED: MIDAZOLAM 2 MG/2 ML INJ ONE (10:42)
[2019-07-31] MEDS ORDERED: PROPOFOL INJ 200 MG/20 ML VIAL IV ONE (10:42)
[2019-07-31] MEDS ORDERED: DIPHENHYDRAMINE HCL 50 MG/ML VIAL IV PRN (11:45)
[2019-07-31] MEDS ORDERED: OXYCODONE-ACETAMINOPHEN 5-325 MG TABLET PO PRN ×2 (11:45)
[2019-07-31] MEDS ORDERED: MEPERIDINE HCL/PF INJ 25 MG/1 ML DISP.SYRIN IV PRN (11:45)
[2019-07-31] MEDS ORDERED: ONDANSETRON HCL INJ/PF 4 MG/2 ML SDV IV PRN (11:45)
[2019-07-31] MEDS ORDERED: PROMETHAZINE HCL INJ 25 MG/1 ML VIAL IV PRN ×2 (11:45)
[2019-07-31] MEDS ORDERED: FENTANYL CITRATE INJ/PF 100 MCG/2 ML AMPUL IV PRN ×3 (11:45)
--- NOTE | 2019-07-31 12:53 | Operative Report ---
Nonrecallable Operative Report DATE OF SURGERY: 07/31/19 PREOPERATIVE DIAGNOSIS: Diabetic foot infection status post guillotine amputation right leg POSTOPERATIVE DIAGNOSIS: Diabetic foot infection status post guillotine amputation right leg OPERATION: Right below the knee amputation SURGEON: CELESTE RAYO ANESTHESIA: GA TISSUE REMOVED OR ALTERED: Right lower extremity below the knee COMPLICATIONS: None ESTIMATED BLOOD LOSS: 50 cc INTRAOPERATIVE FINDINGS: Fairly vasculitis muscle however minimal bleeding from the peroneal arteries PROCEDURE: patient was placed under general anesthesia in the negative pressure room per COVID protocol then brought to the operating room intubated placed on the operating table and the right lower extremity was prepped and draped in usual sterile fashion for the procedure. The leg was marked with a long posterior flap and we began our division of the lower extremity with the 10 blade creating a posterior flap dissected through the superficial subcutaneous tissue with Bovie cautery till reaching the muscles the tibialis anterior and lateral muscles were divided with Bovie cautery as was the gastrocnemius muscles. We then divided the tibia with the reciprocating saw as well as the fibula after raising the periosteum. The posterior peroneal arteries were doubly ligated with 0 Vicryl however there was only minimal bleeding upon transecting the vessels. The veins were handled similarly. The the nerves were divided with Bovie cautery. Again there was minimal bleeding from the edges of the nerve as well as the arteries. Once we divided the bones with a reciprocating saw the specimen was taken off the field. The gastrocnemius muscle was trimmed up and then fixed anteriorly to the subcutaneous tissue to create a posterior pad. The muscle tendons were reapproximated with interrupted 2-0 Vicryl suture. And then the skin was closed with standard skin clips. Estimated blood loss for the procedure was 50 cc sponge needle counts were correct x2. Sterile dressing was applied and then a compression Chuck wrap was applied over that. The patient was then transferred back to the preop area for extubation in the negative pressure room. The patient tolerated procedure well no complication sponge needle counts correct x2.
--- NOTE | 2019-07-31 14:51 | PDOC PROGRESS REPORT ---
Subjective Progress Note for:: 07/31/19 Subjective:: No adverse events overnight. Vital signs stable. Eating and drinking without difficulty. No fevers. N.p.o. awaiting surgery. Reason For Visit: DM FOOT,AFIB,PVD Physical Exam Vital Signs: Temp Pulse Resp BP Pulse Ox 96.2 F L 69 16 158/101 H 98 07/31/19 14:05 07/31/19 14:05 07/31/19 14:05 07/31/19 14:05 07/31/19 14:05 Intake & Output 07/30/19 07/31/19 08/01/19 06:59 06:59 06:59 Intake Total 4293 3023 669 Output Total 1400 475 120 Balance 2893 2548 549 Weight 59.8 kg 61.5 kg General appearance: PRESENT: no acute distress, cooperative, Respiratory exam: PRESENT: clear to auscultation miguelito, symmetrical, unlabored. ABSENT: accessory muscle use, chest wall tenderness, crackles, rhonchi, tachypnea, wheezes Cardiovascular exam: PRESENT: RRR, +S1, +S2 Pulses: PRESENT: normal carotid pulses GI/Abdominal exam: PRESENT: normal bowel sounds, soft. ABSENT: distended, guarding, rebound, tenderness Extremities exam: PRESENT: other - Right lower extremity below the knee stump is wrapped in a heavy bandage Neurological exam: PRESENT: awake, oriented to person Psychiatric exam: PRESENT: flat affect Results Laboratory Results: 07/30/19 05:04 07/31/19 04:10 07/31/19 07/31/19 04:10 08:02 Sodium 139.3 Potassium 4.1 Chloride 115 H Carbon Dioxide 18 L Anion Gap 6 BUN 15 Creatinine 0.78 Est GFR ( Amer) > 60 Glucose 70 L Calcium 8.0 L Blood Type O POSITIVE Impressions: Extremity Arterial Study 07/24/19 17:43 IMPRESSION: 1. Peripheral arterial disease 2. Occluded right superficial femoral artery, distal popliteal artery, peroneal artery, and mid posterior tibial artery. Collaterals are identified. 3. Markedly diminished flow in the right anterior tibial and dorsalis pedis arteries Foot X-Ray 07/24/19 17:43 IMPRESSION: No evidence of osteomyelitis. Tibia/Fibula X-Ray 07/24/19 18:04 IMPRESSION: No evidence of osteomyelitis. Assessment and Plan - Diagnosis (1) Cardiomyopathy Qualifiers: Cardiomyopathy type: ischemic Qualified Code(s): I25.5 - Ischemic cardiomyopathy Is this a current diagnosis for this admission?: Yes Plan: Not acutely exacerbated, will watch her closely for signs of decompensation, cardiology is been consulted, will continue with medical optimization and will arrange for outpatient follow-up. (2) Chronic atrial fibrillation, unspecified Is this a current diagnosis for this admission?: Yes Plan: Currently rate controlled and in sinus rhythm. Anticoagulation held for now. When she is a little bit more stable she is going to go for a more definitive amputation. We will resume anticoagulation when safe and feasible to do so. 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 Her INR is trending down. Her lactate is improved. Following up on her labs to watch the trend her creatinine. She overall looks better. She is scheduled to go to the OR today for definitive treatment to create a permanent stump. - Time Time Spent with patient: 15-24 minutes
[2019-07-31] MEDS: INSULIN GLARGINE,HUM.REC.ANLOG 1,000 UNIT/10 ML VIAL SUBCUT SCH (21:19)
[2019-07-31] MEDS: ACETAMINOPHEN 325 MG TABLET PO PRN (21:38)
[2019-08-01] MEDS: NORMAL SALINE 1000 ML 1,000 ML IV PRN ×2 (04:02→13:48)
[2019-08-01] MEDS: ACETAMINOPHEN 325 MG TABLET PO PRN ×2 (05:13→10:08)
[2019-08-01] MEDS: LEVOTHYROXINE SODIUM 0.025 MG TABLET PO SCH (05:13)
[2019-08-01 05:37] LABS: INTERNATIONAL RATION (INR) 1.55; PROTHROMBIN TIME 18.8 SEC (11.4-15.4)
[2019-08-01 05:45] LABS: ANION GAP 8 (5-19); BLOOD UREA NITROGEN 16 mg/dL (7-20); CALCIUM 8.1 mg/dL (8.4-10.2); CARBON DIOXIDE 16 mmol/L (22-30); CHLORIDE 117 mmol/L (98-107); GLUCOSE 115 mg/dL (75-110); POTASSIUM 4.8 mmol/L (3.6-5.0)
[2019-08-01] MEDS: INSULIN LISPRO 100 UNIT/ML 3 ML VIAL SUBCUT SCH ×3 (10:04→16:48)
[2019-08-01] MEDS: DOCUSATE SODIUM 100 MG CAPSULE PO SCH ×2 (10:08→17:42)
[2019-08-01] MEDS: METOPROLOL SUCCINATE 25 MG TAB.SR.24H PO SCH ×2 (10:09→21:08)
[2019-08-01] MEDS: MAGNESIUM OXIDE 400 MG TABLET PO SCH (10:09)
--- NOTE | 2019-08-01 10:30 | PDOC PROGRESS REPORT ---
Subjective Progress Note for:: 08/01/19 Reason For Visit: DM FOOT,AFIB,PVD Physical Exam Vital Signs: Temp Pulse Resp BP Pulse Ox 98.5 F 64 16 153/83 H 100 08/01/19 07:56 08/01/19 07:56 08/01/19 07:56 08/01/19 07:56 08/01/19 07:56 Intake & Output 07/31/19 08/01/19 08/02/19 06:59 06:59 06:59 Intake Total 3023 2929 Output Total 245 864 Balance 2548 2584 Weight 61.5 kg 61.6 kg Results Laboratory Results: 07/30/19 05:04 08/01/19 04:51 08/01/19 04:51 Sodium 140.6 Potassium 4.8 Chloride 117 H Carbon Dioxide 16 L Anion Gap 8 BUN 16 Creatinine 0.87 Est GFR ( Amer) > 60 Glucose 115 H Calcium 8.1 L Impressions: Extremity Arterial Study 07/24/19 17:43 IMPRESSION: 1. Peripheral arterial disease 2. Occluded right superficial femoral artery, distal popliteal artery, peroneal artery, and mid posterior tibial artery. Collaterals are identified. 3. Markedly diminished flow in the right anterior tibial and dorsalis pedis arteries Foot X-Ray 07/24/19 17:43 IMPRESSION: No evidence of osteomyelitis. Tibia/Fibula X-Ray 07/24/19 18:04 IMPRESSION: No evidence of osteomyelitis. Assessment & Plan - Diagnosis (1) Type 2 diabetes mellitus with right diabetic foot infection Is this a current diagnosis for this admission?: Yes (2) Gangrene of right foot Is this a current diagnosis for this admission?: Yes - Plan Summary Plan Summary: 68 y/o F s/p BKA. She deines pain. Her dressing is clean. I will order a knee immobilizer to be worn at all times. Surgery will continue to follow.
--- NOTE | 2019-08-01 13:34 | PDOC PROGRESS REPORT ---
Subjective Progress Note for:: 08/01/19 Subjective:: No adverse events overnight. No new complaints. Vital signs been stable. Eating and drinking without difficulty. No complaints of pain. Reason For Visit: DM FOOT,AFIB,PVD Physical Exam Vital Signs: Temp Pulse Resp BP Pulse Ox 98.0 F 65 14 149/79 H 100 08/01/19 12:00 08/01/19 12:00 08/01/19 12:00 08/01/19 12:00 08/01/19 12:00 Intake & Output 07/31/19 08/01/19 08/02/19 06:59 06:59 06:59 Intake Total 3023 2929 120 Output Total 475 345 Balance 2548 2584 120 Weight 61.5 kg 61.6 kg General appearance: PRESENT: no acute distress, cooperative, Respiratory exam: PRESENT: clear to auscultation miguelito, symmetrical, unlabored. ABSENT: accessory muscle use, chest wall tenderness, crackles, rhonchi, tachypnea, wheezes Cardiovascular exam: PRESENT: RRR, +S1, +S2 Pulses: PRESENT: normal carotid pulses GI/Abdominal exam: PRESENT: normal bowel sounds, soft. ABSENT: distended, guarding, rebound, tenderness Extremities exam: PRESENT: other - Right lower extremity below the knee stump is wrapped in a heavy bandage Neurological exam: PRESENT: awake, oriented to person Psychiatric exam: PRESENT: flat affect Results Laboratory Results: 07/30/19 05:04 08/01/19 04:51 08/01/19 04:51 Sodium 140.6 Potassium 4.8 Chloride 117 H Carbon Dioxide 16 L Anion Gap 8 BUN 16 Creatinine 0.87 Est GFR ( Amer) > 60 Glucose 115 H Calcium 8.1 L Impressions: Extremity Arterial Study 07/24/19 17:43 IMPRESSION: 1. Peripheral arterial disease 2. Occluded right superficial femoral artery, distal popliteal artery, peroneal artery, and mid posterior tibial artery. Collaterals are identified. 3. Markedly diminished flow in the right anterior tibial and dorsalis pedis arteries Foot X-Ray 07/24/19 17:43 IMPRESSION: No evidence of osteomyelitis. Tibia/Fibula X-Ray 07/24/19 18:04 IMPRESSION: No evidence of osteomyelitis. Assessment and Plan - Diagnosis (1) Cardiomyopathy Qualifiers: Cardiomyopathy type: ischemic Qualified Code(s): I25.5 - Ischemic cardiomyopathy Is this a current diagnosis for this admission?: Yes Plan: Not acutely exacerbated, will watch her closely for signs of decompensation, cardiology is been consulted, will continue with medical optimization and will arrange for outpatient follow-up. (2) Chronic atrial fibrillation, unspecified Is this a current diagnosis for this admission?: Yes Plan: Currently rate controlled and in sinus rhythm. Anticoagulation held for now. When she is a little bit more stable she is going to go for a more definitive amputation. We will resume anticoagulation when safe and feasible to do so. (3) Diabetes Qualifiers: Diabetes mellitus type: type 2 Diabetes mellitus laborer marine terminal insulin use: without laborer marine terminal use Diabetes mellitus complication status: with circulatory complication Diabetes mellitus complication detail: with peripheral angiopathy with gangrene Qualified Code(s): E11.52 - Type 2 diabetes mellitus with diabetic peripheral angiopathy with gangrene Is this a current diagnosis for this admission?: Yes Plan: We will make sure she is medically optimized and has outpatient follow-up (4) Gangrene of right foot Is this a current diagnosis for this admission?: Yes Plan: We will probably keep her on antibiotics for another day or 2 just to clear out any residual infection. I do not think she is going to need to go home on any. Surgery is going to put her in a knee immobilizer. She will likely need placement. - Time Time Spent with patient: 15-24 minutes
[2019-08-01] MEDS: INSULIN GLARGINE,HUM.REC.ANLOG 1,000 UNIT/10 ML VIAL SUBCUT SCH (21:09)
[2019-08-02] MEDS: LEVOTHYROXINE SODIUM 0.025 MG TABLET PO SCH (05:14)
[2019-08-02 05:19] LABS: HEMATOCRIT 32.9 % (36.0-47.0); HEMOGLOBIN 10.7 g/dL (12.0-15.5); MEAN CORPUSCULAR HEMOGLOBIN 26.4 pg (27.0-33.4); MEAN CORPUSCULAR HGB CONC 32.7 g/dL (32.0-36.0); MEAN CORPUSCULAR VOLUME 81 fl (80-97); PLATELET COUNT 316 10^3/uL (150-450); RED BLOOD COUNT 4.08 10^6/uL (3.72-5.28); RED CELL DISTRIBUTION WIDTH 17.6 % (11.5-14.0); WHITE BLOOD COUNT 17.6 10^3/uL (4.0-10.5)
[2019-08-02 05:31] LABS: INTERNATIONAL RATION (INR) 1.78; PROTHROMBIN TIME 20.9 SEC (11.4-15.4)
[2019-08-02 05:43] LABS: ANION GAP 6 (5-19); BLOOD UREA NITROGEN 15 mg/dL (7-20); CALCIUM 7.9 mg/dL (8.4-10.2); CARBON DIOXIDE 17 mmol/L (22-30); CHLORIDE 114 mmol/L (98-107); GLUCOSE 176 mg/dL (75-110)
[2019-08-02] MEDS: NORMAL SALINE 1000 ML 1,000 ML IV PRN (07:30)
[2019-08-02] MEDS: METOPROLOL SUCCINATE 25 MG TAB.SR.24H PO SCH ×2 (09:23→22:33)
[2019-08-02] MEDS: INSULIN LISPRO 100 UNIT/ML 3 ML VIAL SUBCUT SCH ×3 (09:23→18:01)
[2019-08-02] MEDS: MAGNESIUM OXIDE 400 MG TABLET PO SCH (09:23)
[2019-08-02] MEDS: DOCUSATE SODIUM 100 MG CAPSULE PO SCH ×2 (09:23→18:12)
--- NOTE | 2019-08-02 10:33 | PDOC PROGRESS REPORT ---
Subjective Progress Note for:: 08/02/19 Reason For Visit: DM FOOT,AFIB,PVD Physical Exam Vital Signs: Temp Pulse Resp BP Pulse Ox 98.5 F 66 16 168/93 H 100 08/02/19 07:48 08/02/19 07:48 08/02/19 07:48 08/02/19 07:48 08/02/19 07:48 Intake & Output 08/01/19 08/02/19 08/03/19 06:59 06:59 06:59 Intake Total 2929 1360 1000 Output Total 345 700 Balance 2584 660 1000 Weight 61.6 kg 64.3 kg Results Laboratory Results: 08/02/19 04:27 08/02/19 04:27 08/02/19 08/02/19 04:27 04:27 WBC 17.6 H RBC 4.08 Hgb 10.7 L Hct 32.9 L MCV 81 MCH 26.4 L MCHC 32.7 RDW 17.6 H Plt Count 316 Sodium 136.6 L Potassium 4.0 Chloride 114 H Carbon Dioxide 17 L Anion Gap 6 BUN 15 Creatinine 0.83 Est GFR ( Amer) > 60 Glucose 176 H Calcium 7.9 L Impressions: Extremity Arterial Study 07/24/19 17:43 IMPRESSION: 1. Peripheral arterial disease 2. Occluded right superficial femoral artery, distal popliteal artery, peroneal artery, and mid posterior tibial artery. Collaterals are identified. 3. Markedly diminished flow in the right anterior tibial and dorsalis pedis arteries Foot X-Ray 07/24/19 17:43 IMPRESSION: No evidence of osteomyelitis. Tibia/Fibula X-Ray 07/24/19 18:04 IMPRESSION: No evidence of osteomyelitis. Assessment & Plan - Diagnosis (1) Type 2 diabetes mellitus with right diabetic foot infection Is this a current diagnosis for this admission?: Yes (2) Gangrene of right foot Is this a current diagnosis for this admission?: Yes - Plan Summary Plan Summary: 68 y/o F s/p BKA. She deines pain. Her dressing is clean. She is not wearing the knee immobilizer that was ordered yesterday. I have instructed the nurses that she should wear this at all times, to prevent contracture. The nursing staff has agreed to place the immobilizer on the patient. Surgery will continue to follow.
--- NOTE | 2019-08-02 12:17 | PDOC PROGRESS REPORT ---
Subjective Progress Note for:: 08/02/19 Subjective:: Patient underwent emergency guillotine BKA as a temporary stop gap measure in light of worsening sepsis and lactic acidosis. This was followed by formal BKA yesterday. No complaints. Nurse reports no events. Reason For Visit: DM FOOT,AFIB,PVD Physical Exam Vital Signs: Temp Pulse Resp BP Pulse Ox 98.5 F 66 16 168/93 H 100 08/02/19 07:48 08/02/19 07:48 08/02/19 07:48 08/02/19 07:48 08/02/19 07:48 Intake & Output 08/01/19 08/02/19 08/03/19 06:59 06:59 06:59 Intake Total 2929 1360 1000 Output Total 345 700 Balance 2584 660 1000 Weight 61.6 kg 64.3 kg General appearance: PRESENT: no acute distress, cooperative, well-developed Head exam: PRESENT: atraumatic, normocephalic Eye exam: PRESENT: conjunctiva pale, EOMI Mouth exam: PRESENT: dry mucosa Respiratory exam: PRESENT: symmetrical, unlabored Rectal exam: PRESENT: deferred Neurological exam: PRESENT: alert, awake Results Laboratory Results: 08/02/19 04:27 08/02/19 04:27 08/02/19 08/02/19 04:27 04:27 WBC 17.6 H RBC 4.08 Hgb 10.7 L Hct 32.9 L MCV 81 MCH 26.4 L MCHC 32.7 RDW 17.6 H Plt Count 316 Sodium 136.6 L Potassium 4.0 Chloride 114 H Carbon Dioxide 17 L Anion Gap 6 BUN 15 Creatinine 0.83 Est GFR ( Amer) > 60 Glucose 176 H Calcium 7.9 L Impressions: Extremity Arterial Study 07/24/19 17:43 IMPRESSION: 1. Peripheral arterial disease 2. Occluded right superficial femoral artery, distal popliteal artery, peroneal artery, and mid posterior tibial artery. Collaterals are identified. 3. Markedly diminished flow in the right anterior tibial and dorsalis pedis arteries Foot X-Ray 07/24/19 17:43 IMPRESSION: No evidence of osteomyelitis. Tibia/Fibula X-Ray 07/24/19 18:04 IMPRESSION: No evidence of osteomyelitis. Assessment & Plan - Diagnosis (1) Atrial fibrillation Qualifiers: Atrial fibrillation type: paroxysmal Qualified Code(s): I48.0 - Paroxysmal atrial fibrillation Is this a current diagnosis for this admission?: Yes Plan: Rate control strategy Systemic anticoagulation has been interrupted in anticipation of right BKA. 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 (4) Cardiomyopathy Qualifiers: Cardiomyopathy type: ischemic Qualified Code(s): I25.5 - Ischemic cardiomyopathy Is this a current diagnosis for this admission?: Yes Plan: Appears to be compensated Continue to watch volume status. Continue medications for cardiomyopathy as feasible. We will arrange for close follow-up upon discharge for further evaluation for cardiomyopathy which might require ischemic evaluation Up titration of medications is also required. - Notes Notes: Dilated cardiomyopathy-ischemic etiology has to be excluded especially given peripheral vascular disease which is resulted in BKA on the right lower extremity Presently we will continue medications for dilated cardiomyopathy From a volume standpoint patient appears to be well compensated
--- NOTE | 2019-08-02 16:18 | PDOC PROGRESS REPORT ---
Subjective Progress Note for:: 08/02/19 Subjective:: No adverse events overnight. No new complaints. Vital signs been stable. Blood pressures little bit elevated. She is eating and drinking without difficulty. No trouble sleeping. Pain is been controlled. Reason For Visit: DM FOOT,AFIB,PVD Physical Exam Vital Signs: Temp Pulse Resp BP Pulse Ox 98.2 F 74 16 164/92 H 100 08/02/19 11:15 08/02/19 11:15 08/02/19 11:15 08/02/19 11:15 08/02/19 11:15 Intake & Output 08/01/19 08/02/19 08/03/19 06:59 06:59 06:59 Intake Total 2929 1360 1075 Output Total 345 700 150 Balance 2584 660 925 Weight 61.6 kg 64.3 kg General appearance: PRESENT: no acute distress, cooperative, Respiratory exam: PRESENT: clear to auscultation miguelito, symmetrical, unlabored. ABSENT: accessory muscle use, chest wall tenderness, crackles, rhonchi, tachypnea, wheezes Cardiovascular exam: PRESENT: RRR, +S1, +S2 Pulses: PRESENT: normal carotid pulses GI/Abdominal exam: PRESENT: normal bowel sounds, soft. ABSENT: distended, guarding, rebound, tenderness Extremities exam: PRESENT: other - Right lower extremity below the knee stump is wrapped in a heavy bandage Neurological exam: PRESENT: awake, oriented to person Psychiatric exam: PRESENT: flat affect Results Laboratory Results: 08/02/19 04:27 08/02/19 04:27 08/02/19 08/02/19 04:27 04:27 WBC 17.6 H RBC 4.08 Hgb 10.7 L Hct 32.9 L MCV 81 MCH 26.4 L MCHC 32.7 RDW 17.6 H Plt Count 316 Sodium 136.6 L Potassium 4.0 Chloride 114 H Carbon Dioxide 17 L Anion Gap 6 BUN 15 Creatinine 0.83 Est GFR ( Amer) > 60 Glucose 176 H Calcium 7.9 L Impressions: Extremity Arterial Study 07/24/19 17:43 IMPRESSION: 1. Peripheral arterial disease 2. Occluded right superficial femoral artery, distal popliteal artery, peroneal artery, and mid posterior tibial artery. Collaterals are identified. 3. Markedly diminished flow in the right anterior tibial and dorsalis pedis arteries Foot X-Ray 07/24/19 17:43 IMPRESSION: No evidence of osteomyelitis. Tibia/Fibula X-Ray 07/24/19 18:04 IMPRESSION: No evidence of osteomyelitis. Assessment and Plan - Diagnosis (1) Cardiomyopathy Qualifiers: Cardiomyopathy type: ischemic Qualified Code(s): I25.5 - Ischemic cardiomyopathy Is this a current diagnosis for this admission?: Yes Plan: Not acutely exacerbated, will watch her closely for signs of decompensation, cardiology is been consulted, will continue with medical optimization and will arrange for outpatient follow-up. Resumed Lasix today at half her usual dose. With her EF of 20 to 25%, I have started Entresto. (2) Chronic atrial fibrillation, unspecified Is this a current diagnosis for this admission?: Yes Plan: Currently rate controlled and in sinus rhythm. We will resume Xarelto. 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 I do not think she is going to need to go home on any. Surgery is going to put her in a knee immobilizer. She will likely need placement. - Time Time Spent with patient: 15-24 minutes
[2019-08-02 17:30] LABS: APPEARANCE,URINE SLIGHTLY-CLOUDY; BILIRUBIN,URINE NEGATIVE (NEGATIVE); COLOR,URINE AMBER; GLUCOSE, URINE NEGATIVE (NEGATIVE); KETONES,URINE NEGATIVE (NEGATIVE); LEUKOCYTE ESTERASE,URINE TRACE (NEGATIVE); NITRITE,URINE NEGATIVE (NEGATIVE); PROTEIN,URINE 30 mg/dL (NEGATIVE); URINE SPECIFIC GRAVITY 1.021; UROBILINOGEN,URINE NEGATIVE mg/dL (<2.0)
--- NOTE | 2019-08-02 18:01 | PDOC PROGRESS REPORT ---
Subjective Progress Note for:: 08/01/19 Subjective:: Patient underwent emergency guillotine BKA as a temporary stopgap measure in light of worsening sepsis and lactic acidosis. This was followed by formal BKA yesterday. Resting presently. No complaints Reason For Visit: DM FOOT,AFIB,PVD Physical Exam Vital Signs: Temp Pulse Resp BP Pulse Ox 98.5 F 64 16 153/83 H 100 08/01/19 07:56 08/01/19 07:56 08/01/19 07:56 08/01/19 07:56 08/01/19 07:56 Intake & Output 07/31/19 08/01/19 08/02/19 06:59 06:59 06:59 Intake Total 3023 2929 Output Total 670 345 Balance 2548 2584 Weight 61.5 kg 61.6 kg General appearance: PRESENT: no acute distress, well-developed, well-nourished Head exam: PRESENT: atraumatic, normocephalic Respiratory exam: PRESENT: symmetrical, unlabored Rectal exam: PRESENT: deferred Musculoskeletal exam: PRESENT: deformity Skin exam: PRESENT: dry, intact Results Laboratory Results: 07/30/19 05:04 08/01/19 04:51 08/01/19 04:51 Sodium 140.6 Potassium 4.8 Chloride 117 H Carbon Dioxide 16 L Anion Gap 8 BUN 16 Creatinine 0.87 Est GFR ( Amer) > 60 Glucose 115 H Calcium 8.1 L Impressions: Extremity Arterial Study 07/24/19 17:43 IMPRESSION: 1. Peripheral arterial disease 2. Occluded right superficial femoral artery, distal popliteal artery, peroneal artery, and mid posterior tibial artery. Collaterals are identified. 3. Markedly diminished flow in the right anterior tibial and dorsalis pedis arteries Foot X-Ray 07/24/19 17:43 IMPRESSION: No evidence of osteomyelitis. Tibia/Fibula X-Ray 07/24/19 18:04 IMPRESSION: No evidence of osteomyelitis. Assessment & Plan - Diagnosis (1) Atrial fibrillation Qualifiers: Atrial fibrillation type: paroxysmal Qualified Code(s): I48.0 - Paroxysmal atrial fibrillation Is this a current diagnosis for this admission?: Yes Plan: Rate control strategy Systemic anticoagulation has been interrupted in anticipation of right BKA. 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 (4) Cardiomyopathy Qualifiers: Cardiomyopathy type: ischemic Qualified Code(s): I25.5 - Ischemic cardiomyopathy Is this a current diagnosis for this admission?: Yes Plan: Appears to be compensated Continue to watch volume status. Continue medications for cardiomyopathy as feasible.
--- NOTE | 2019-08-02 18:01 | PDOC PROGRESS REPORT ---
Subjective Reason For Visit: DM FOOT,AFIB,PVD Physical Exam Vital Signs: Temp Pulse Resp BP Pulse Ox 98.5 F 66 16 168/93 H 100 08/02/19 07:48 08/02/19 07:48 08/02/19 07:48 08/02/19 07:48 08/02/19 07:48 Intake & Output 08/01/19 08/02/19 08/03/19 06:59 06:59 06:59 Intake Total 2929 1360 1000 Output Total 345 700 Balance 2584 660 1000 Weight 61.6 kg 64.3 kg Results Laboratory Results: 08/02/19 04:27 08/02/19 04:27 08/02/19 08/02/19 04:27 04:27 WBC 17.6 H RBC 4.08 Hgb 10.7 L Hct 32.9 L MCV 81 MCH 26.4 L MCHC 32.7 RDW 17.6 H Plt Count 316 Sodium 136.6 L Potassium 4.0 Chloride 114 H Carbon Dioxide 17 L Anion Gap 6 BUN 15 Creatinine 0.83 Est GFR ( Amer) > 60 Glucose 176 H Calcium 7.9 L Impressions: Extremity Arterial Study 07/24/19 17:43 IMPRESSION: 1. Peripheral arterial disease 2. Occluded right superficial femoral artery, distal popliteal artery, peroneal artery, and mid posterior tibial artery. Collaterals are identified. 3. Markedly diminished flow in the right anterior tibial and dorsalis pedis arteries Foot X-Ray 07/24/19 17:43 IMPRESSION: No evidence of osteomyelitis. Tibia/Fibula X-Ray 07/24/19 18:04 IMPRESSION: No evidence of osteomyelitis. 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
[2019-08-02] MEDS: RIVAROXABAN 10 MG TABLET PO SCH (18:12)
[2019-08-02] MEDS: SACUBITRIL/VALSARTAN 49 MG/51 MG TABLET PO SCH (18:12)
[2019-08-02] MEDS: INSULIN GLARGINE,HUM.REC.ANLOG 1,000 UNIT/10 ML VIAL SUBCUT SCH (22:33)
[2019-08-03 05:54] LABS: ANION GAP 6 (5-19); BLOOD UREA NITROGEN 13 mg/dL (7-20); CALCIUM 7.8 mg/dL (8.4-10.2); CARBON DIOXIDE 17 mmol/L (22-30); CHLORIDE 112 mmol/L (98-107); GLUCOSE 127 mg/dL (75-110); POTASSIUM 4.1 mmol/L (3.6-5.0)
[2019-08-03] MEDS: LEVOTHYROXINE SODIUM 0.025 MG TABLET PO SCH (06:00)
[2019-08-03 07:19] LABS: PROTHROMBIN TIME 46.3 SEC (11.4-15.4)
--- NOTE | 2019-08-03 10:13 | PDOC PROGRESS REPORT ---
Subjective Reason For Visit: DM FOOT,AFIB,PVD Physical Exam Vital Signs: Temp Pulse Resp BP Pulse Ox 97.6 F 84 16 177/90 H 99 08/03/19 00:16 08/03/19 00:16 08/03/19 00:16 08/03/19 00:16 08/03/19 00:16 Intake & Output 08/02/19 08/03/19 08/04/19 06:59 06:59 06:59 Intake Total 1360 2395 Output Total 700 325 Balance 660 2070 Weight 64.3 kg 68.4 kg Extremities exam: PRESENT: other - Dressings are intact and dry. Results Laboratory Results: 08/02/19 04:27 08/03/19 04:55 08/02/19 08/03/19 16:50 04:55 Sodium 135.3 L Potassium 4.1 Chloride 112 H Carbon Dioxide 17 L Anion Gap 6 BUN 13 Creatinine 0.74 Est GFR ( Amer) > 60 Glucose 127 H Calcium 7.8 L Urine Color AFTAB Urine Appearance SLIGHTLY-CLOUDY Urine pH 5.0 Ur Specific [place] 1.021 Urine Protein 30 H Urine Glucose (UA) NEGATIVE Urine Ketones NEGATIVE Urine Blood MODERATE H Urine Nitrite NEGATIVE Ur Leukocyte Esterase TRACE H Urine WBC (Auto) 7 Urine RBC (Auto) 11 Impressions: Extremity Arterial Study 07/24/19 17:43 IMPRESSION: 1. Peripheral arterial disease 2. Occluded right superficial femoral artery, distal popliteal artery, peroneal artery, and mid posterior tibial artery. Collaterals are identified. 3. Markedly diminished flow in the right anterior tibial and dorsalis pedis arteries Foot X-Ray 07/24/19 17:43 IMPRESSION: No evidence of osteomyelitis. Tibia/Fibula X-Ray 07/24/19 18:04 IMPRESSION: No evidence of osteomyelitis. Assessment & Plan - Diagnosis (1) Gangrene of right foot Is this a current diagnosis for this admission?: Yes Plan: Status post below the knee amputation. Will take off dressings tomorrow.
[2019-08-03 10:42] LABS: ABSOLUTE BASOPHILS # (AUTO) 0.1 10^3/uL (0.0-0.2); ABSOLUTE LYMPHOCYTES (AUTO) 1.3 10^3/uL (0.5-4.7); ABSOLUTE MONOCYTES (AUTO) 0.6 10^3/uL (0.1-1.4); ABSOLUTE NEUT (AUTO) 11.4 10^3/uL (1.7-8.2); BASOPHILS % (AUTO) 0.7 % (0-2); EOSINOPHILS % (AUTO) 0.2 % (0-6); HEMATOCRIT 34.7 % (36.0-47.0); HEMOGLOBIN 11.5 g/dL (12.0-15.5); LYMPHOCYTES % (AUTO) 9.8 % (13-45); MEAN CORPUSCULAR HEMOGLOBIN 26.7 pg (27.0-33.4); MEAN CORPUSCULAR HGB CONC 33.2 g/dL (32.0-36.0); MEAN CORPUSCULAR VOLUME 80 fl (80-97); MONOCYTES % (AUTO) 4.8 % (3-13); PLATELET COUNT 340 10^3/uL (150-450); RED BLOOD COUNT 4.32 10^6/uL (3.72-5.28); SEGMENTED NEUTROPHILS % (AUTO) 84.5 % (42-78); TOTAL CELLS COUNTED % (AUTO) 100 %; WHITE BLOOD COUNT 13.5 10^3/uL (4.0-10.5)
[2019-08-03] MEDS: FUROSEMIDE 20 MG TABLET PO SCH (15:09)
[2019-08-03] MEDS: MAGNESIUM OXIDE 400 MG TABLET PO SCH (15:09)
[2019-08-03] MEDS: DOCUSATE SODIUM 100 MG CAPSULE PO SCH ×2 (15:09→21:39)
[2019-08-03] MEDS: SACUBITRIL/VALSARTAN 49 MG/51 MG TABLET PO SCH ×2 (15:10→18:01)
--- NOTE | 2019-08-03 15:31 | PDOC PROGRESS REPORT ---
Subjective Progress Note for:: 08/03/19 Subjective:: Patient has no complaints. Reason For Visit: DM FOOT,AFIB,PVD Physical Exam Vital Signs: Temp Pulse Resp BP Pulse Ox 97.6 F 68 17 120/62 99 08/03/19 12:44 08/03/19 12:44 08/03/19 12:44 08/03/19 12:44 08/03/19 12:44 Intake & Output 08/02/19 08/03/19 08/04/19 06:59 06:59 06:59 Intake Total 1360 2395 Output Total 700 325 Balance 660 2070 Weight 64.3 kg 68.4 kg General appearance: PRESENT: no acute distress, cooperative Neck exam: ABSENT: JVD Respiratory exam: PRESENT: clear to auscultation miguelito Cardiovascular exam: PRESENT: +S1, +S2 GI/Abdominal exam: PRESENT: soft. ABSENT: rebound, tenderness Extremities exam: PRESENT: other - Right BKA. ABSENT: calf tenderness Neurological exam: PRESENT: alert, awake Psychiatric exam: ABSENT: anxious Focused psych exam: ABSENT: pressured speech Results Laboratory Results: 08/03/19 10:00 08/03/19 04:55 08/02/19 08/03/19 08/03/19 16:50 04:55 10:00 WBC 13.5 H RBC 4.32 Hgb 11.5 L Hct 34.7 L MCV 80 MCH 26.7 L MCHC 33.2 RDW 18.0 H Plt Count 340 Seg Neutrophils % 84.5 H Sodium 135.3 L Potassium 4.1 Chloride 112 H Carbon Dioxide 17 L Anion Gap 6 BUN 13 Creatinine 0.74 Est GFR ( Amer) > 60 Glucose 127 H Calcium 7.8 L Urine Color AFTAB Urine Appearance SLIGHTLY-CLOUDY Urine pH 5.0 Ur Specific [place] 1.021 Urine Protein 30 H Urine Glucose (UA) NEGATIVE Urine Ketones NEGATIVE Urine Blood MODERATE H Urine Nitrite NEGATIVE Ur Leukocyte Esterase TRACE H Urine WBC (Auto) 7 Urine RBC (Auto) 11 Impressions: Extremity Arterial Study 07/24/19 17:43 IMPRESSION: 1. Peripheral arterial disease 2. Occluded right superficial femoral artery, distal popliteal artery, peroneal artery, and mid posterior tibial artery. Collaterals are identified. 3. Markedly diminished flow in the right anterior tibial and dorsalis pedis arteries Foot X-Ray 07/24/19 17:43 IMPRESSION: No evidence of osteomyelitis. Tibia/Fibula X-Ray 07/24/19 18:04 IMPRESSION: No evidence of osteomyelitis. Assessment and Plan - Diagnosis (1) Gangrene of right foot Is this a current diagnosis for this admission?: Yes Plan: Status post below the knee amputation. Surgery planning to take off dressings tomorrow. I will continue antibiotics until wound is assessed by surgery tomorrow and then discontinue if no evidence of infection. (2) Chronic atrial fibrillation, unspecified Is this a current diagnosis for this admission?: Yes Plan: Currently rate controlled and in sinus rhythm. On Xarelto and Toprol-XL. (3) Cardiomyopathy Qualifiers: Cardiomyopathy type: ischemic Qualified Code(s): I25.5 - Ischemic ca rdiomyopathy Is this a current diagnosis for this admission?: Yes Plan: Not acutely exacerbated. Continue Lasix. Started on Entresto. Toprol-XL. Discussed with cardiology who recommends following up as outpatient and no need to pursuing LifeVest while inpatient given patient's cognitive impairments and chronicity. (4) Hyperkalemia Is this a current diagnosis for this admission?: Yes (5) Diabetes Qualifiers: Diabetes mellitus type: type 2 Diabetes mellitus donkey ride operator insulin use: without donkey ride operator use Diabetes mellitus complication status: with circulatory complication Diabetes mellitus complication detail: with peripheral angiopathy with gangrene Qualified Code(s): E11.52 - Type 2 diabetes mellitus with diabetic peripheral angiopathy with gangrene Is this a current diagnosis for this admission?: Yes (6) Peripheral vascular disease in diabetes mellitus Is this a current diagnosis for this admission?: Yes (7) Dementia Qualifiers: Dementia type: unspecified type Dementia behavioral disturbance: without behavioral disturbance Qualified Code(s): F03.90 - Unspecified dementia without behavioral disturbance Is this a current diagnosis for this admission?: Yes - Time Time Spent with patient: Less than 15 minutes
[2019-08-03] MEDS: METOPROLOL SUCCINATE 25 MG TAB.SR.24H PO SCH ×2 (15:36→21:42)
[2019-08-03] MEDS: ACETAMINOPHEN 325 MG TABLET PO PRN (17:59)
[2019-08-03] MEDS: RIVAROXABAN 10 MG TABLET PO SCH (18:00)
[2019-08-03] MEDS: PIPERACILLIN SODIUM/TAZOBACTAM 3.375 GM in NORMAL SALINE 100 ML IV SCH ×2 (18:01→21:32)
[2019-08-03] MEDS: INSULIN LISPRO 100 UNIT/ML 3 ML VIAL SUBCUT SCH (21:26)
[2019-08-03] MEDS: INSULIN GLARGINE,HUM.REC.ANLOG 1,000 UNIT/10 ML VIAL SUBCUT SCH (21:41)
[2019-08-03] MEDS ORDERED: PIPERACILLIN/TAZOBACTAM 3.375 GM VIAL IV SCH (22:00)
[2019-08-04 05:10] LABS: ABSOLUTE BASOPHILS # (AUTO) 0.1 10^3/uL (0.0-0.2); ABSOLUTE EOSINOPHILS # (AUTO) 0.2 10^3/uL (0.0-0.6); ABSOLUTE LYMPHOCYTES (AUTO) 1.8 10^3/uL (0.5-4.7); ABSOLUTE MONOCYTES (AUTO) 0.8 10^3/uL (0.1-1.4); ABSOLUTE NEUT (AUTO) 8.5 10^3/uL (1.7-8.2); BASOPHILS % (AUTO) 0.5 % (0-2); HEMATOCRIT 31.7 % (36.0-47.0); HEMOGLOBIN 10.4 g/dL (12.0-15.5); LYMPHOCYTES % (AUTO) 15.6 % (13-45); MEAN CORPUSCULAR HEMOGLOBIN 26.3 pg (27.0-33.4); MEAN CORPUSCULAR HGB CONC 32.8 g/dL (32.0-36.0); MEAN CORPUSCULAR VOLUME 80 fl (80-97); PLATELET COUNT 327 10^3/uL (150-450); RED BLOOD COUNT 3.96 10^6/uL (3.72-5.28); RED CELL DISTRIBUTION WIDTH 17.6 % (11.5-14.0); SEGMENTED NEUTROPHILS % (AUTO) 74.9 % (42-78); TOTAL CELLS COUNTED % (AUTO) 100 %; WHITE BLOOD COUNT 11.4 10^3/uL (4.0-10.5)
[2019-08-04] MEDS: ACETAMINOPHEN 325 MG TABLET PO PRN (05:12)
[2019-08-04] MEDS: LEVOTHYROXINE SODIUM 0.025 MG TABLET PO SCH (05:12)
[2019-08-04] MEDS: PIPERACILLIN SODIUM/TAZOBACTAM 3.375 GM in NORMAL SALINE 100 ML IV SCH (05:13)
[2019-08-04] MEDS: INSULIN LISPRO 100 UNIT/ML 3 ML VIAL SUBCUT SCH ×3 (08:07→17:46)
--- NOTE | 2019-08-04 10:21 | PDOC PROGRESS REPORT ---
Subjective Progress Note for:: 08/04/19 Reason For Visit: DM FOOT,AFIB,PVD Physical Exam Vital Signs: Temp Pulse Resp BP Pulse Ox 97.2 F 67 18 148/81 H 99 08/04/19 07:26 08/04/19 07:26 08/04/19 07:26 08/04/19 07:26 08/04/19 07:26 Intake & Output 08/03/19 08/04/19 08/05/19 06:59 06:59 06:59 Intake Total 2395 920 100 Output Total 325 850 Balance 2070 70 100 Weight 68.4 kg 65 kg 65 kg Results Laboratory Results: 08/04/19 04:10 08/03/19 04:55 08/03/19 08/04/19 10:00 04:10 WBC 13.5 H 11.4 H RBC 4.32 3.96 Hgb 11.5 L 10.4 L Hct 34.7 L 31.7 L MCV 80 80 MCH 26.7 L 26.3 L MCHC 33.2 32.8 RDW 18.0 H 17.6 H Plt Count 340 327 Seg Neutrophils % 84.5 H 74.9 Impressions: Extremity Arterial Study 07/24/19 17:43 IMPRESSION: 1. Peripheral arterial disease 2. Occluded right superficial femoral artery, distal popliteal artery, peroneal artery, and mid posterior tibial artery. Collaterals are identified. 3. Markedly diminished flow in the right anterior tibial and dorsalis pedis arteries Foot X-Ray 07/24/19 17:43 IMPRESSION: No evidence of osteomyelitis. Tibia/Fibula X-Ray 07/24/19 18:04 IMPRESSION: No evidence of osteomyelitis. Assessment & Plan - Diagnosis (1) Type 2 diabetes mellitus with right diabetic foot infection Is this a current diagnosis for this admission?: Yes (2) Gangrene of right foot Is this a current diagnosis for this admission?: Yes - Plan Summary Plan Summary: 68-year-old female status post right below-knee amputation. The stump was examined today, and the dressing was removed. Her incision is clean, dry, intac t. There is no sign of hematoma or active infection. The patient is still very resistant to straightening the leg. The knee immobilizer has not been properly applied. The patient's leg was straightened, and the knee immobilizer was appropriately placed. Dry dressing change with Chuck wrap daily. She should follow-up with [facility] in 7 to 10 days for staple removal. She is okay to begin physical therapy. Surgery will sign off at this time. Please renotify with any questions or concerns.
--- NOTE | 2019-08-04 12:10 | PDOC TRANSFER SUMMARY ---
Impression - Admit/DC Date/PCP Admission Date/Primary Care Provider: 07/24/19 23:12 WILLIAMS CHAUHAN PA-C Discharge Date: 08/04/19 - Discharge Diagnosis (1) Gangrene of right foot Is this a current diagnosis for this admission?: Yes (2) Chronic atrial fibrillation, unspecified Is this a current diagnosis for this admission?: Yes (3) Cardiomyopathy Is this a current diagnosis for this admission?: Yes (4) Hyperkalemia Is this a current diagnosis for this admission?: Yes (5) Diabetes Is this a current diagnosis for this admission?: Yes (6) Peripheral vascular disease in diabetes mellitus Is this a current diagnosis for this admission?: Yes (7) Dementia Is this a current diagnosis for this admission?: Yes (8) Chronic systolic heart failure Is this a current diagnosis for this admission?: Yes - Additional Information Resuscitation Status: Full Code Referrals: [facility] [Provider Group] (Follow-up in 7 to 10 days) DONTE PAREDES MD [ACTIVE STAFF] - Prescriptions: Aspirin [Aspir-Low] 81 mg PO DAILY #30 tablet. Home Medications: Magnesium Oxide [Mag-Ox 400 mg Tablet] 400 mg PO DAILY #30 tablet 12/19/17 Levothyroxine Sodium [Synthroid 0.025 mg Tablet] 25 mcg PO Q6AM 07/25/19 Metformin HCl [Glucophage 500 mg Tablet] 500 mg PO BIDACBS 07/25/19 Rivaroxaban [Xarelto] 20 mg PO DAILY 07/25/19 Acetaminophen [Tylenol 325 mg Tablet] 650 mg PO Q4HP PRN tablet 08/04/19 Aspirin [Aspir-Low] 81 mg PO DAILY #30 tablet. 08/04/19 Docusate Sodium [Colace 100 mg Capsule] 100 mg PO BID capsule 08/04/19 Furosemide [Lasix 20 mg Tablet] 20 mg PO DAILY tablet 08/04/19 Metoprolol Succinate [Toprol Xl 25 mg Tab.sr] 25 mg PO Q12 tab.sr.24h 08/04/19 Sacubitril/Valsartan [Entresto 49 mg/51 mg Tablet] 1 tab PO BID tablet 08/04/19 History of Present Illiness History of Present Illness: KRISTIN DARLING is a 68 year old female with a past medical history of atrial fibrillation on Xarelto, diabetes, peripheral vascular disease, tobacco abuse and dementia. She presents with worsening of chronic right foot ulcer complicated by the above prompting evaluation by orthopedic surgery 2 days ago with MRI revealing likely osteomyelitis. She is referred to the emergency department for evaluation. In the emergency department she is found to have leukocytosis and arterial vascular imaging revealing extensive disease. She is recommended for amputation and referred to the hospitalist for admission. She has an exceptionaly high risk for thromboembolism and will require discontinuation of Xarelto 48 to 72 hours prior to procedure with heparin bridging. Xarelto at former dose may be reintroduced 24 to 48 hours after depending on procedural hemostasis. The case has been discussed with patient's daughter and decision maker who agrees to preliminary plan. Pending surgical consultation. Hospital Course Hospital Course: Patient was evaluated in the hospital for gangrene of the right foot. Lower extremity Dopplers of the right lower extremity revealed severe peripheral vascular disease. Patient was started on broad-spectrum antibiotics IV. Patient had to be taken for emergency right ankle amputation on 07/28/2019 due to severe lactic acidosis, hyperkalemia and acute renal failure which was suspected to be from patient's gangrenous foot. On 07/31/2019 patient was then taken for p adamaris right BKA for better source control. Blood cultures were negative. Patient's surgical wound was evaluated today which seems to show no evidence of infection and adequate source control. Have discussed with the surgeon today after he evaluated the wound who states that given adequate source control, there is no need to continue antibiotics and as such antibiotics have been discontinued today. Patient is to follow-up at the surgical clinic within 7 to 10 days for reevaluation of the surgical wound and ronan removal. Patient has been cleared to undergo physical therapy by the surgeon. Regarding patient's peripheral vascular disease, lipid panel showed normal cholesterol levels and very low amount of LDL and as such as atorvastatin is not indicated but patient will need to be on daily aspirin. Patient's hemoglobin A1c was 7.4 showing adequate control for patient's age. Patient is to continue on metformin. Patient was also found on echocardiogram to have low ejection fraction of 20 to 25% and hypokinesis of the left ventricular wall which is suggestive of cardiomyopathy likely chronic systolic heart failure. Of note patient showed no evidence of acute decompensation throughout patient's stay. Patient was evaluated by a music writer and patient has been started on Entresto. Patient is to continue her Toprol-XL and Lasix as well. Patient will need cardiology follow-up for further care. Patient was deemed by music writer not to be candidate for LifeVest given her cognitive impairment. Patient was screened for COVID-19 which was done 2 days ago and the test result came back negative today. To be clear, the sole purpose of doing the test was simply for pre-placement screening and there was never any suspicion that patient had COVID-19. Physical Exam Vital Signs: Temp Pulse Resp BP Pulse Ox 97.2 F 67 18 148/81 H 99 08/04/19 07:26 08/04/19 07:26 08/04/19 07:26 08/04/19 07:26 08/04/19 07:26 Intake & Output 08/03/19 08/04/19 08/05/19 06:59 06:59 06:59 Intake Total 2395 920 100 Output Total 325 850 Balance 2070 70 100 Weight 68.4 kg 65 kg 65 kg General appearance: PRESENT: no acute distress, cooperative Neck exam: ABSENT: JVD Respiratory exam: PRESENT: clear to auscultation miguelito, unlabored. ABSENT: tachypnea, wheezes Results Laboratory Results: WBC 11.4 10^3/uL (4.0-10.5) H 08/04/19 04:10 RBC 3.96 10^6/uL (3.72-5.28) 08/04/19 04:10 Hgb 10.4 g/dL (12.0-15.5) L 08/04/19 04:10 Hct 31.7 % (36.0-47.0) L 08/04/19 04:10 MCV 80 fl (80-97) 08/04/19 04:10 MCH 26.3 pg (27.0-33.4) L 08/04/19 04:10 MCHC 32.8 g/dL (32.0-36.0) 08/04/19 04:10 RDW 17.6 % (11.5-14.0) H 08/04/19 04:10 Plt Count 327 10^3/uL (150-450) 08/04/19 04:10 Lymph % (Auto) 15.6 % (13-45) 08/04/19 04:10 [place] % (Auto) 7.0 % (3-13) 08/04/19 04:10 Eos % (Auto) 2.0 % (0-6) 08/04/19 04:10 Baso % (Auto) 0.5 % (0-2) 08/04/19 04:10 Absolute Neuts (auto) 8.5 10^3/uL (1.7-8.2) H 08/04/19 04:10 Absolute Lymphs (auto) 1.8 10^3/uL (0.5-4.7) 08/04/19 04:10 Absolute Monos (auto) 0.8 10^3/uL (0.1-1.4) 08/04/19 04:10 Absolute Eos (auto) 0.2 10^3/uL (0.0-0.6) 08/04/19 04:10 Absolute Basos (auto) 0.1 10^3/uL (0.0-0.2) 08/04/19 04:10 Seg Neutrophils % 74.9 % (42-78) 08/04/19 04:10 PT 46.3 SEC (11.4-15.4) H D 08/03/19 06:14 INR 4.80 08/03/19 06:14 INR (Anticoag Therapy) Cancelled 08/03/19 04:55 APTT 39.3 SEC (23.5-35.8) H 07/31/19 04:10 VBG pH 7.33 (7.30-7.42) 07/28/19 05:53 VBG pCO2 39.6 mmHg (35-63) 07/28/19 05:53 VBG HCO3 20.2 mmol/L (20-32) 07/28/19 05:53 VBG Base Excess -5.3 mmol/L 07/28/19 05:53 Sodium 135.3 mmol/L (137-145) L 08/03/19 04:55 Potassium 4.1 mmol/L (3.6-5.0) 08/03/19 04:55 Chloride 112 mmol/L (98-107) H 08/03/19 04:55 Carbon Dioxide 17 mmol/L (22-30) L 08/03/19 04:55 Anion Gap 6 (5-19) 08/03/19 04:55 BUN 13 mg/dL (7-20) 08/03/19 04:55 Creatinine 0.74 mg/dL (0.52-1.25) 08/03/19 04:55 Est GFR ( Amer) > 60 (>60) 08/03/19 04:55 Est GFR (MDRD) Non-Af > 60 (>60) 08/03/19 04:55 Glucose 127 mg/dL (75-110) H 08/03/19 04:55 POC Glucose 105 mg/dL (70-110) 08/04/19 10:42 Hemoglobin A1c % 7.4 % (4.7-6.0) H 07/25/19 05:40 Lactic Acid 2.2 mmol/L (0.7-2.1) H 07/28/19 05:48 Calcium 7.8 mg/dL (8.4-10.2) L 08/03/19 04:55 Magnesium 2.2 mg/dL (1.6-2.3) 07/28/19 05:48 Total Bilirubin 0.5 mg/dL (0.2-1.3) 07/24/19 18:11 Direct Bilirubin 0.5 mg/dL (0.0-0.4) H 07/24/19 18:11 Neonat Total Bilirubin Not Reportable 07/24/19 18:11 Neonat Direct Bilirubin Not Reportable 07/24/19 18:11 Neonat Indirect Bili Not Reportable 07/24/19 18:11 AST 23 U/L (14-36) 07/24/19 18:11 ALT 13 U/L (<35) 07/24/19 18:11 Alkaline Phosphatase 109 U/L (38-126) 07/24/19 18:11 Total Protein 8.9 g/dL (6.3-8.2) H 07/24/19 18:11 Albumin 3.8 g/dL (3.5-5.0) 07/24/19 18:11 Triglycerides 44 mg/dL (<150) 07/26/19 06:09 Cholesterol 74.60 mg/dL (0-200) 07/26/19 06:09 LDL Cholesterol Direct 34 mg/dL (<100) 07/26/19 06:09 VLDL Cholesterol 9.0 mg/dL (10-31) L 07/26/19 06:09 HDL Cholesterol 31 mg/dL (>40) L 07/26/19 06:09 Urine Color AFTAB 08/02/19 16:50 Urine Appearance SLIGHTLY-CLOUDY 08/02/19 16:50 Urine pH 5.0 (5.0-9.0) 08/02/19 16:50 Ur Specific [place] 1.021 08/02/19 16:50 Urine Protein 30 mg/dL (NEGATIVE) H 08/02/19 16:50 Urine Glucose (UA) NEGATIVE mg/dL (NEGATIVE) 08/02/19 16:50 Urine Ketones NEGATIVE mg/dL (NEGATIVE) 08/02/19 16:50 Urine Blood MODERATE (NEGATIVE) H 08/02/19 16:50 Urine Nitrite NEGATIVE (NEGATIVE) 08/02/19 16:50 Urine Bilirubin NEGATIVE (NEGATIVE) 08/02/19 16:50 Urine Urobilinogen NEGATIVE mg/dL (<2.0) 08/02/19 16:50 Ur Leukocyte Esterase TRACE (NEGATIVE) H 08/02/19 16:50 Urine WBC (Auto) 7 /HPF 08/02/19 16:50 Urine RBC (Auto) 11 /HPF 08/02/19 16:50 U Hyaline Cast (Auto) 1 /LPF 07/30/19 04:49 Urine Bacteria (Auto) TRACE /HPF 08/02/19 16:50 Squamous Epi Cells Auto 4 /HPF 08/02/19 16:50 Urine Mucus (Auto) MOD /LPF 08/02/19 16:50 Urine Ascorbic Acid NEGATIVE (NEGATIVE) 08/02/19 16:50 Time Trough Drawn 1015 07/27/19 10:15 Vancomycin Trough 14.6 ug/mL (5.0-20.0) 07/27/19 10:15 COVID-19 Source NASOPHARYNGEAL 08/02/19 21:30 COVID-19 (NIRALI) NOT DETECTED 08/02/19 21:30 Blood Type O POSITIVE 07/31/19 08:02 Antibody Screen NEGATIVE 07/27/19 20:01 Impressions: Extremity Arterial Study 07/24/19 17:43 IMPRESSION: 1. Peripheral arterial disease 2. Occluded right superficial femoral artery, distal popliteal artery, peroneal artery, and mid posterior tibial artery. Collaterals are identified. 3. Markedly diminished flow in the right anterior tibial and dorsalis pedis arteries Foot X-Ray 07/24/19 17:43 IMPRESSION: No evidence of osteomyelitis. Tibia/Fibula X-Ray 07/24/19 18:04 IMPRESSION: No evidence of osteomyelitis. Plan Time Spent: Greater than 30 Minutes Stroke Is this a Stroke Patient?: No Acute Heart Failure - Is this a Heart Failure Patient?: No
[2019-08-04] MEDS: SACUBITRIL/VALSARTAN 49 MG/51 MG TABLET PO SCH ×2 (12:33→17:42)
[2019-08-04] MEDS: METOPROLOL SUCCINATE 25 MG TAB.SR.24H PO SCH (12:34)
[2019-08-04] MEDS: DOCUSATE SODIUM 100 MG CAPSULE PO SCH ×2 (12:34→17:42)
[2019-08-04] MEDS: MAGNESIUM OXIDE 400 MG TABLET PO SCH (12:35)
[2019-08-04] MEDS: FUROSEMIDE 20 MG TABLET PO SCH (12:35)
[2019-08-04 17:28] VITALS: BP 157/88
[2019-08-04] MEDS: RIVAROXABAN 10 MG TABLET PO SCH (17:42)
== END 2019-08-04 19:45 | DRG 240 ==
LOC: ER 16:56 → EH 23:12 → 4N 07-25 01:05 → ICU 07-28 00:53 → 4N 07-28 01:06
PROVIDERS: ADMIT Internal Medicine; ATTEND Internal Medicine
PROC: 30233K1 Transfusion of Nonautologous Frozen Plasma into Peripheral Vein, Percutaneous Approach (ICD-10-PCS; 2019-07-27)
PROC: 0Y6H0Z3 Detachment at Right Lower Leg, Low, Open Approach (ICD-10-PCS; principal; 2019-07-28)
DX: E11.52 Type 2 diabetes mellitus with diabetic peripheral angiopathy with gangrene (principal); I96 Gangrene, not elsewhere classified; E87.2 Acidosis; I50.22 Chronic systolic (congestive) heart failure; I73.9 Peripheral vascular disease, unspecified; E87.5 Hyperkalemia; E03.9 Hypothyroidism, unspecified; I11.0 Hypertensive heart disease with heart failure; I48.0 Paroxysmal atrial fibrillation; I25.5 Ischemic cardiomyopathy; I08.1 Rheumatic disorders of both mitral and tricuspid valves; F03.90 Unspecified dementia, unspecified severity, without behavioral disturbance, psychotic disturbance, mood disturbance, and anxiety; F17.210 Nicotine dependence, cigarettes, uncomplicated; Z79.84 Long term (current) use of oral hypoglycemic drugs; Z79.01 Long term (current) use of anticoagulants; Z03.818 Encounter for observation for suspected exposure to other biological agents ruled out
CPT/HCPCS: 01482; 36415; 36430; 80048; 80053; 80061; 80202; 81001; 82803; 82962; 83036; 83605; 83735; 85025; 85027; 85610; 85730; 86850; 86900; 86901; 87040; 87635; 88305; 88307; 88311; 93005; 93010; 93306; 93926; 94799; 96365; 99284; J0330; J1644; J1815; J1940; J2250; J2270; J2370; J2405; J2543; J2704; J2765; J3010; J3370; J3430; J3475; J3490; J7030; J7040; J7050; J7060; L1830; P9017